=== PATIENT | female | born 1970 | race Hispanic/Latino ===

== ENCOUNTER 2017-08-30 11:03 | Day surgery (SDC) | payer MEDICAID ==
[2017-08-27 13:02] VITALS: BMI 24.1
[2017-08-30 12:04] LABS: BASO # 0.08 K/mm3 (0.0-2.0); BASO % 0.7 % (0.0-3.0); EOS # 0.4 (0.0-0.7); EOS % 3.2 % (1.5-5.0); GRAN % 46.1 % (50.0-68.0); HEMOGLOBIN 15.5 g/dL (12.0-16.0); LYMPH # 4.7 (1.2-3.4); LYMPH % 43.3 % (22.0-35.0); MEAN CELL VOLUME 94.7 fl (80.0-105.0); MEAN CORPUSCULAR HEMOGLOBIN 31.8 pg (25.0-35.0); MEAN CORPUSCULAR HGB CONC 33.6 g/dl (31.0-37.0); MEAN PLATELET VOLUME 9.4 fl (7.0-11.0); MONO # 0.7 (0.1-0.6); MONO % 6.7 % (1.0-6.0); RBC 4.87 10^6/uL (3.5-6.1); RED CELL DISTRIBUTION WIDTH 12.5 % (11.5-14.5); WHITE BLOOD COUNT 10.9 10^3/ul (4.5-11.0)
[2017-08-30 12:15] LABS: BLOOD UREA NITROGEN 15 mg/dL (7-21); CALCIUM 9.4 mg/dL (8.4-10.5); GFR AFRICAN-AMERICAN > 60; GFR NON-AFRICAN AMERICAN > 60; INR 0.96 (0.93-1.08); PARTIAL THROMBOPLASTIN TIME 29.9 Seconds (25.1-36.5)
[2017-08-30] MEDS ORDERED: Midazolam 2 MG/2 ML VIAL ONE (14:19)
[2017-08-30] MEDS ORDERED: Sodium Chloride 0.45% 1,000 ML IV SCH (15:30)
[2017-08-30] MEDS ORDERED: Oxycodone/Acetaminophen 5/325 mg Tab PO PRN (15:30)
[2017-08-30 17:18] VITALS: TEMP 97.9
--- NOTE | 2017-08-30 17:28 | RAD ---
HISTORY: rt lung bx COMPARISON: 2017. CT-guided lung biopsy performed at 15:15 FINDINGS: LUNGS: Stable large right middle lobe mass. PLEURA: No pneumothorax following a right lung /right middle lobe biopsy. CARDIOVASCULAR: Normal. OSSEOUS STRUCTURES: No significant abnormalities. VISUALIZED UPPER ABDOMEN: Normal. OTHER FINDINGS: None. IMPRESSION: No pneumothorax following right lung biopsy.
[2017-08-30] MEDS ORDERED: Oxycodone/Acetaminophen 5/325 mg Tab ONE (18:22)
--- NOTE | 2017-08-30 18:22 | CT ---
PROCEDURE: CT guided right upper lobe lung biopsy. HISTORY: 12 cm right upper lobe lung mass. Evaluate for malignancy. PHYSICIAN(S): Loy Newman MD. TECHNIQUE: The relative risks and indications of the procedure were explained to the patient and consent obtained. The patient was placed supine on the CT scanner and preliminary images through the upper lungs obtained. Conscious sedation and monitoring were provided throughout the procedure by a nurse. There is a well-circumscribed 12 cm soft tissue mass in the right upper lobe with punctate calcification. A right anterior approach was selected and the area prepped and draped in the usual sterile fashion. 1% Xylocaine was used to anesthetize the skin and soft tissues. A 17-gauge guiding needle was advanced into the 12 cm right upper lobe mass. Its position was confirmed with CT. Using coaxial technique, multiple core biopsies were obtained. The postprocedure images show no evidence of large pneumothorax or significant hemorrhage.. IMPRESSION: 1. CT-guided right upper lobe lung biopsy as described above. Specimens were sent for histology and flow cytometry.
[2017-08-30] MEDS ORDERED: Oxycodone/Acetaminophen 5/325 mg Tab PO ONE (18:24)
[2017-08-30 19:34] VITALS: RESP 18
[2017-08-30 19:36] VITALS: PULSE 72
[2017-08-30 20:03] VITALS: BP 116/68; O2SAT 94
--- NOTE | 2017-08-30 20:03 | RAD ---
EXAM: XR Chest, 1 View EXAM DATE/TIME: 08/30/2017 7:00 PM CLINICAL HISTORY: The patient age is 47 years old and is female; Condition or disease; Lung condition and disease; Other: Mass S/P rt biopsy; Additional info: S/P lung biopsy check for pneumo Facility exam id and description: Rad chest p chest portable TECHNIQUE: Frontal view of the chest. COMPARISON: DX - CHEST PORTABLE 2017-08-30 16:35 FINDINGS: Lungs: There is a large mass again visualized within the right mid and lower lung zones. The left lung is clear. Pleural space: No pleural effusions. No pneumothorax. Heart: No cardiomegaly. Mediastinum: Unremarkable. Bones/joints: Bilateral breast prostheses are visualized. Other findings: The right border is obscured. IMPRESSION: 1. There is a large mass again visualized within the right mid and lower lung zones. 2. No pneumothorax.
== END 2017-08-30 20:45 | disposition home or self-care (01) ==
LOC: SDS 11:03
PROVIDERS: ATTEND Radiology Vascular & Interventional Radiology
DX: D15.0 Benign neoplasm of thymus (principal); I10 Essential (primary) hypertension; J45.909 Unspecified asthma, uncomplicated
CPT/HCPCS: 32405; 36415; 71045; 77012; 80048; 84703; 85025; 85610; 85730; 88305; J2250; J2405; J3010; J7030

== ENCOUNTER 2017-12-02 20:36 | Inpatient (IN) | payer MEDICAID ==
[2017-12-02 20:37] VITALS: BMI 24.1
[2017-12-02] MEDS ORDERED: Albuterol-Ipratrop 3 mg / 0.5 (3 ml) UD IH STA ×2 (21:00→22:31)
--- NOTE | 2017-12-02 21:32 | ED PDOC ---
Arrival/HPI - General Chief Complaint: Chest Pain Time Seen by Provider: 12/02/17 20:45 Historian: Patient - History of Present Illness Narrative History of Present Illness (Text): 12/02/17 21:22 Monik Unger is a 47 year old female, whose past medical history includes myasthenia gravis, thymoma, who presents to the emergency department complaining worsening shortness of breath and chest pain tonight. 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 Since then had on occasion slight shortness of breath and chest pain. Patient uses nebulizer treatment at home. Patient experiences associated subjective low-grade fevers and chills. Patient denies any nausea, vomiting, diarrhea, or any other complaints at this time. Time/Duration: < month Symptom Onset: Gradual Symptom Course: Worsening Activities at Onset: Light Context: Home Past Medical History - Provider Review Nursing Documentation Reviewed: Yes - Infectious Disease Hx of Infectious Diseases: None - Tetanus Immunization Tetanus Immunization: Unknown - Cardiac Hx Cardiac Disorders: No - Pulmonary Hx Respiratory Disorders: Yes Hx Asthma: Yes Other/Comment: TUMOR REMOVED FROM CHEST AREA - Neurological Hx Neurological Disorder: No - HEENT Hx HEENT Disorder: No - Renal Hx Renal Disorder: No - Endocrine/Metabolic Hx Endocrine Disorders: No - Hematological/Oncological Hx Blood Disorders: No - Integumentary Hx Dermatological Disorder: No - Musculoskeletal/Rheumatological Hx Musculoskeletal Disorders: No - Gastrointestinal Hx Gastrointestinal Disorders: No - Genitourinary/Gynecological Hx Genitourinary Disorders: No - Psychiatric Hx Psychophysiologic Disorder: Yes Hx Anxiety: Yes Hx Depression: Yes Hx Substance Use: No - Surgical History Hx Appendectomy: Yes Hx Open Reduction Internal Fixation: Yes (L KNEE) Other/Comment: CHEST, BX LUNG - Anesthesia Hx Anesthesia: Yes Hx Anesthesia Reactions: Yes (TROUBLE WAKING) Hx Malignant Hyperthermia: No - Suicidal Assessment Feels Threatened In Home Enviroment: No Family/Social History - Physician Review Nursing Documentation Reviewed: Yes Family/Social History: No Known Family HX Smoking Status: Never Smoked Hx Alcohol Use: No Hx Substance Use: No Hx Substance Use Treatment: No Allergies/Home Meds Allergies/Adverse Reactions: Allergies cephalexin [From Keflex] Allergy (Severe, Verified 12/02/17 20:57) RASH codeine Allergy (Severe, Verified 12/02/17 20:57) RASH/SOB Iodine and Iodide Containing Produc Allergy (Severe, Verified 12/02/17 20:57) ANAPHYLAXIS latex Allergy (Severe, Verified 12/02/17 20:57) ANAPHYLAXIS peanut Allergy (Severe, Verified 12/02/17 20:57) ANAPHYLAXIS Penicillins Allergy (Severe, Verified 12/02/17 20:57) RASH/SOB shellfish derived Allergy (Verified 12/02/17 20:57) ANAPHYLAXIS Home Medications: Home Meds Medication Instructions Recorded Confirmed Albuterol 0.083% [Albuterol 0.083% 3 ml PO TID 12/02/17 12/02/17 Inhal Sanjuana (2.5 mg/3 ml) UD] Pyridostigmine [Mestinon] 60 mg PO TID 12/03/17 12/03/17 Review of Systems - Review of Systems Constitutional: Fevers, Night Sweats Eyes: absent: Vision Changes ENT: absent: Hearing Changes Respiratory: SOB Cardiovascular: Chest Pain Gastrointestinal: absent: Abdominal Pain Genitourinary Female: absent: Dysuria, Frequency Musculoskeletal: absent: Arthralgias, Back Pain Skin: absent: Rash Neurological: absent: Headache Endocrine: absent: Diaphoresis Hemo/Lymphatic: absent: Adenopathy Psychiatric: absent: Anxiety, Depression Physical Exam Vital Signs Reviewed: Yes Vital Signs Temp Pulse Resp BP Pulse Ox 12/03/17 02:48 69 18 125/88 96 12/03/17 00:15 86 20 126/71 96 12/02/17 23:35 133/98 H 12/02/17 20:49 97.8 F 82 18 139/108 H 95 Temperature: Afebrile Blood Pressure: Hypertensive Pulse: Regular Respiratory Rate: Normal Appearance: Positive for: Well-Appearing, Non-Toxic, Comfortable Pain Distress: None Mental Status: Positive for: Alert and Oriented X 3 - Systems Exam Head: Present: Atraumatic, Normocephalic Pupils: Present: PERRL Extroacular Muscles: Present: EOMI Conjunctiva: Present: Normal Mouth: Present: Moist Mucous Membranes Neck: Present: Normal Range of Motion Respiratory/Chest: Present: Rhonchi (scattered rhonchi bilaterally), Other ( midline surgical scar to chest) Cardiovascular: Present: Regular Rate and Rhythm, Normal S1, S2. No: Murmurs Abdomen: No: Tenderness, Distention, Peritoneal Signs Back: Present: Normal Inspection Upper Extremity: Present: Normal Inspection. No: Cyanosis, Edema Lower Extremity: Present: Normal Inspection. No: Edema Neurological: Present: GCS=15, CN II-XII Intact, Speech Normal Skin: Present: Warm, Dry, Normal Color. No: Rashes Psychiatric: Present: Alert, Oriented x 3, Normal Insight, Normal Concentration Medical Decision Making ED Course and Treatment: 12/02/17 21:33 Impression: 47 year old female complaining of worsening shortness of breath and chest pain with associated fevers and chills today. Plan: -- EKG -- Chest X-ray -- Labs -- Duoneb -- Reassess and disposition Progress Notes: 12/02/17 22:36 EKG: Ordered, reviewed, and independently interpreted the EKG. Rate : 83 BPM Rhythm : NSR Interpretation : Septal infarct, no acute changes 12/03/17 03:45 Case discussed with medical support specialist and with Dr. Reyes, who agree for patient to be accepted to hospitalist service. - Lab Interpretations Lab Results: 12/02/17 21:20 12/02/17 21:20 Lab Results 12/02/17 21:20: PT 12.3, INR 1.06, APTT 30.0, D-Dimer, Quantitative 753 H 12/02/17 21:20: WBC 7.9 D, RBC 4.28, Hgb 12.8 D, Hct 38.2, MCV 89.3 D, MCH 29.9, MCHC 33.5, RDW 12.4, Plt Count 502 H, MPV 8.4 12/02/17 21:20: Sodium 143, Potassium 4.0, Chloride 107, Carbon Dioxide 23, Anion Gap 17, BUN 18, Creatinine 0.7, Est GFR ( Amer) > 60, Est GFR (Non- Af Amer) > 60, Random Glucose 102, Calcium 9.3, Total Bilirubin 0.7, AST 20, ALT 16, Alkaline Phosphatase 62, Lactate Dehydrogenase 523, Total Creatine Kinase 87, Troponin I < 0.01, NT-Pro-B Natriuret Pep 31.0, Total Protein 7.8, Albumin 4.3, Globulin 3.5, Albumin/Globulin Ratio 1.2 I have reviewed the lab results: Yes - RAD Interpretation Radiology Orders: 12/02/17 21:00 CHEST PORTABLE [RAD] Stat 12/02/17 23:57 LUNG PERF & VENT SCAN [NM] Stat - Medication Orders Current Medication Orders: Eye Irrigation Solution (Eye Wash) 0 ml OU BID [facility] Last Admin: 12/03/17 19:43 Dose: Not Given Non-Admin Reason: Patient Refused Ketorolac Tromethamine (Toradol) 30 mg IVP Q6H PRN PRN Reason: Pain, severe (8-10) Last Admin: 12/03/17 06:01 Dose: 30 mg MAR Pain Assessment Document 12/03/17 06:01 [facility] (Rec: 12/03/17 06:02 [id number] Pain Reassessment Is this a pain reassessment? No Presence of Pain Presence of Pain Yes Location Pain Location Body Site Chest IVP Administration Document 12/03/17 06:01 [facility] (Rec: 12/03/17 06:02 [id number]) Charges for Administration # of IVP Administrations 1 Pyridostigmine [place] (Mestinon Tab) 60 mg PO TID [facility] Last Admin: 12/03/17 19:43 Dose: Not Given Non-Admin Reason: NPO Discontinued Medications Albuterol/Ipratropium (Duoneb 3 Mg/0.5 Mg (3 Ml) Ud) 3 ml IH ONCE STA Stop: 12/02/17 21:01 Last Admin: 12/02/17 21:54 Dose: 3 ml Albuterol/Ipratropium (Duoneb 3 Mg/0.5 Mg (3 Ml) Ud) 3 ml IH ONCE STA Stop: 12/02/17 22:32 Last Admin: 12/02/17 23:00 Dose: 3 ml Benzonatate (Tessalon Perles) 200 mg PO Q8H [facility] Stop: 12/03/17 22:01 Last Admin: 12/03/17 21:17 Dose: Not Given Non-Admin Reason: Patient Refused Furosemide (Lasix) 40 mg IVP ONCE ONE Stop: 12/02/17 23:17 Last Admin: 12/02/17 23:35 Dose: 40 mg MAR Blood Pressure Document 12/02/17 23:35 SS (Rec: 12/02/17 23:39 SS [id number]) Blood Pressure Blood Pressure (100/60-150/90) 133/98 IVP Administration Document 12/02/17 23:35 SS (Rec: 12/02/17 23:39 [id number] Charges for Administration # of IVP Administrations 1 Ketorolac Tromethamine (Toradol) 30 mg IVP ONCE ONE Stop: 12/02/17 23:13 Last Admin: 12/02/17 23:31 Dose: 30 mg MAR Pain Assessment Document 12/02/17 23:31 SS (Rec: 12/02/17 23:34 [id number] Pain Reassessment Is this a pain reassessment? No Sleep Is patient sleeping during reassessment? No Presence of Pain Presence of Pain Yes Pain Scale Used Pain Scale Used Numeric IVP Administration Document 12/02/17 23:31 SS (Rec: 12/02/17 23:34 [id number] Charges for Administration # of IVP Administrations 1 - Scribe Statement The provider has reviewed the documentation as recorded by the Scribe Shasha Poon Provider Scribe Attestation: All medical record entries made by the Scribe were at my direction and personally dictated by me. I have reviewed the chart and agree that the record accurately reflects my personal performance of the history, physical exam, medical decision making, and the department course for this patient. I have also personally directed, reviewed, and agree with the discharge instructions and disposition. Disposition/Present on Arrival - Present on Arrival Any Indicators Present on Arrival: No History of DVT/PE: No History of Uncontrolled Diabetes: No Urinary Catheter: No History of Decub. Ulcer: No History Surgical Site Infection Following: None - Disposition Have Diagnosis and Disposition been Completed?: Yes Diagnosis: Chest pain, Pleural effusion Disposition: HOSPITALIZED Disposition Time: 03:40 Condition: STABLE
[2017-12-02 21:34] LABS: HEMOGLOBIN 12.8 g/dL (12.0-16.0); MEAN CELL VOLUME 89.3 fl (80.0-105.0); MEAN CORPUSCULAR HEMOGLOBIN 29.9 pg (25.0-35.0); MEAN CORPUSCULAR HGB CONC 33.5 g/dl (31.0-37.0); MEAN PLATELET VOLUME 8.4 fl (7.0-11.0); RBC 4.28 10^6/uL (3.5-6.1); RED CELL DISTRIBUTION WIDTH 12.4 % (11.5-14.5); WHITE BLOOD COUNT 7.9 10^3/ul (4.5-11.0)
[2017-12-02 21:40] LABS: INR 1.06 (0.93-1.08); PROTHROMBIN TIME 12.3 SECONDS (9.4-12.5)
[2017-12-02 21:44] LABS: ALB/GLOB RATIO 1.2 (1.1-1.8); ALBUMIN 4.3 g/dL (3.0-4.8); ALT/SGPT 16 U/L (7-56); AST/SGOT 20 U/L (14-36); BLOOD UREA NITROGEN 18 mg/dL (7-21); CALCIUM 9.3 mg/dL (8.4-10.5); GFR AFRICAN-AMERICAN > 60; GFR NON-AFRICAN AMERICAN > 60
[2017-12-02 21:55] LABS: TROPONIN I < 0.01 ng/mL
--- NOTE | 2017-12-03 03:57 | CP.PCM.HP ---
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 Patient had thymectomy 5 weeks ago at [facility] ([place]) by Dr. Philipp Segal. Since then, the patient has been experiencing shooting chest pain that radiates to her back. She rates the pain a 9/10 at it's worse and a 7/10 at it's best. Pain is relived but sitting up still. The pain is exacerbated by laughing, coughing, or sneezing. Since the surgery patient has had 2 thoracentesis. Her last thoracentesis was 2 weeks ago in which they drained 450cc of cranberry colored fluid. ROS POSITIVES: SOB, Fever/Chills, Cough, Palpitations, Generalized weakness, upper ext. motor weakness (chronic), and Insomnia NEGATIVES: Headache, Dizziness, abdominal pain, nausea, vomiting, changes in bowel habits, urinary symptoms, double vision PMHx: Myasthenis Gravis, Thymoma PSHx: Thymectomy Allergies: Cephalexin, Codeine, Iodine, Iodide containing products, latex, peanuts, penicillins, shellfish Social Hx: Denies tobacco, alcohol, and illicit drug use Hos: 2 weeks ago at [facility] for thoracentesis FamHx: Reviewed. Patient is supposed to receive 1st dose of IgG next week. PMD: Dr. Gonzalez Present on Admission - Present on Admission Any Indicators Present on Admission: No Review of Systems - Review of Systems All systems: reviewed and no additional remarkable complaints except (As per HPI ) Review of Systems: As per HPI Past Patient History - Infectious Disease Hx of Infectious Diseases: None - Tetanus Immunizations Tetanus Immunization: Unknown - Past Social History Smoking Status: Never Smoked - CARDIAC Hx Cardiac Disorders: No - PULMONARY Hx Respiratory Disorders: Yes Hx Asthma: Yes Other/Comment: TUMOR REMOVED FROM CHEST AREA - NEUROLOGICAL Hx Neurological Disorder: No - HEENT Hx HEENT Problems: No - RENAL Hx Chronic Kidney Disease: No - ENDOCRINE/METABOLIC Hx Endocrine Disorders: No - HEMATOLOGICAL/ONCOLOGICAL Hx Blood Disorders: No - INTEGUMENTARY Hx Dermatological Problems: No - MUSCULOSKELETAL/RHEUMATOLOGICAL Hx Musculoskeletal Disorders: No - GASTROINTESTINAL Hx Gastrointestinal Disorders: No - GENITOURINARY/GYNECOLOGICAL Hx Genitourinary Disorders: No - PSYCHIATRIC Hx Psychophysiologic Disorder: Yes Hx Anxiety: Yes Hx Depression: Yes Hx Substance Use: No - SURGICAL HISTORY Hx Appendectomy: Yes Hx Open Reduction Internal Fixation: Yes (L KNEE) Other/Comment: CHEST, BX LUNG - ANESTHESIA Hx Anesthesia: Yes Hx Anesthesia Reactions: Yes (TROUBLE WAKING) Hx Malignant Hyperthermia: No Meds Allergies/Adverse Reactions: Allergies Allergy/AdvReac Type Severity Reaction Status Date / Time cephalexin [From Keflex] Allergy Severe RASH Verified 12/02/17 20:57 codeine Allergy Severe RASH/SOB Verified 12/02/17 20:57 Iodine and Iodide Containing Allergy Severe ANAPHYLAXIS Verified 12/02/17 20:57 Produc latex Allergy Severe ANAPHYLAXIS Verified 12/02/17 20:57 peanut Allergy Severe ANAPHYLAXIS Verified 12/02/17 20:57 Penicillins Allergy Severe RASH/SOB Verified 12/02/17 20:57 shellfish derived Allergy ANAPHYLAXIS Verified 12/02/17 20:57 Physical Exam - Constitutional Appears: Non-toxic - Head Exam Head Exam: ATRAUMATIC, NORMAL INSPECTION, NORMOCEPHALIC - Eye Exam Eye Exam: EOMI, Normal appearance Additional comments: No Ptosis - ENT Exam ENT Exam: Mucous Membranes Moist - Neck Exam Neck exam: Negative for: Lymphadenopathy - Respiratory Exam Respiratory Exam: Decreased Breath Sounds (Right Lower lung base), Clear to Auscultation Bilateral, NORMAL BREATHING PATTERN. absent: Rales, Rhonchi, Wheezes - Cardiovascular Exam Cardiovascular Exam: RRR, +S1, +S2. absent: JVD - GI/Abdominal Exam GI & Abdominal Exam: Normal Bowel Sounds, Soft. absent: Tenderness - Extremities Exam Extremities exam: Positive for: normal capillary refill, normal inspection - Neurological Exam Neurological exam: Alert, CN II-XII Intact, Oriented x3 Additional comments: 4/5 Muscle strength in Upper Extremities 5/5 Muscle Strength in Lower Extremities. - Skin Additional comments: Midline chest scare w/ mild erythema and calor Results - Vital Signs Recent Vital Signs: Last Vital Signs Temp 97.8 F 12/02/17 20:49 Pulse 69 12/03/17 02:48 Resp 18 12/03/17 02:48 BP 125/88 12/03/17 02:48 Pulse Ox 96 12/03/17 02:48 - Labs Result Diagrams: 12/02/17 21:20 12/02/17 21:20 Labs: Laboratory Results - last 24 hr 12/02/17 12/02/17 12/02/17 21:20 21:20 21:20 WBC 7.9 D RBC 4.28 Hgb 12.8 D Hct 38.2 MCV 89.3 D MCH 29.9 MCHC 33.5 RDW 12.4 Plt Count 502 H MPV 8.4 PT 12.3 INR 1.06 APTT 30.0 D-Dimer, Quantitative 753 H Sodium 143 Potassium 4.0 Chloride 107 Carbon Dioxide 23 Anion Gap 17 BUN 18 Creatinine 0.7 Est GFR ( Amer) > 60 Est GFR (Non-Af Amer) > 60 Random Glucose 102 Calcium 9.3 Total Bilirubin 0.7 AST 20 ALT 16 Alkaline Phosphatase 62 Lactate Dehydrogenase 523 Total Creatine Kinase 87 Troponin I < 0.01 NT-Pro-B Natriuret Pep 31.0 Total Protein 7.8 Albumin 4.3 Globulin 3.5 Albumin/Globulin Ratio 1.2 Assessment & Plan - Assessment and Plan (Free Text) Assessment: This Patient is a 47 year old female with PMHx of Myasthenis Gravis s/p thymectomy admitted for evaluation and treatment of chest pain and SOB. Plan: Chest Pain/SOB likely 2/2 to surgery and increased cardiac demand due to pleural effusion ED: Duonebs x 2, Lasix 40 IVP, Toradol Elevated D-Dimer CXR(Adm): Right sided pleural effusion. V/Q Scan(Adm): Negative CTA(Adm): Negative for PE Trop #1 - NEGATIVE Troponin #2 Toradol PRN Chest Ultrasound Pulm Consult (Dr. Walker) for Thoracentesis Tessalon Perles Q8H for Cough. Likely will not need it after thoracentesis Myasthenis Gravis Pyridostigimine 60mg PO TID Proph SCD's Patient discussed with Attending (Dr. Reyes) Erin Roblero, PGY-1 <Douglas Reyes Q - Last Filed: 12/03/17 19:26> Results - Vital Signs Recent Vital Signs: Last Vital Signs Temp 98.3 F 12/03/17 18:00 Pulse 81 12/03/17 18:00 Resp 16 04/24/18 18:00 BP 125/84 12/03/17 18:00 Pulse Ox 96 12/03/17 02:48 - Labs Result Diagrams: 12/03/17 07:45 12/03/17 07:45 Labs: Laboratory Results - last 24 hr 12/03/17 12/03/17 12/03/17 07:45 07:45 07:45 WBC 6.7 RBC 4.21 Hgb 12.2 Hct 37.7 MCV 89.5 MCH 29.0 MCHC 32.4 RDW 12.5 Plt Count 498 H MPV 8.5 Gran % 54.7 Lymph % (Auto) 30.0 [place] % (Auto) 9.1 H Eos % (Auto) 5.8 H Baso % (Auto) 0.4 Gran # 3.69 Lymph # (Auto) 2.0 [place] # (Auto) 0.6 Eos # (Auto) 0.4 Baso # (Auto) 0.03 Sodium 140 Potassium 4.0 Chloride 106 Carbon Dioxide 24 Anion Gap 14 BUN 18 Creatinine 0.8 Est GFR ( Amer) > 60 Est GFR (Non-Af Amer) > 60 Random Glucose 105 Calcium 9.7 Phosphorus 5.4 H Magnesium 2.1 Total Bilirubin 1.0 AST 27 ALT 22 Alkaline Phosphatase 64 Troponin I 0.01 Total Protein 8.0 Albumin 4.3 Globulin 3.7 Albumin/Globulin Ratio 1.2 Attending/Attestation - Attestation I have personally seen and examined this patient.: Yes I have fully participated in the care of the patient.: Yes I have reviewed all pertinent clinical information: Yes
--- NOTE | 2017-12-03 07:47 | RAD ---
HISTORY: sob COMPARISON: CT 08/14/2017 FINDINGS: LUNGS: The mass seen on the previous study is no longer visible. There is a moderate size right pleural effusion PLEURA: Right-sided effusion CARDIOVASCULAR: Normal. OSSEOUS STRUCTURES: Sternal wires VISUALIZED UPPER ABDOMEN: Normal. OTHER FINDINGS: None. IMPRESSION: Moderate size right pleural effusion
--- NOTE | 2017-12-03 08:53 | NM ---
COMPARISON: Not available TECHNIQUE: 30.2 mCi technetium 99-m DTPA aerosol. 3.4 mCI technetium 99-m MAA administered intravenously. FINDINGS: VENTILATION COMPONENT: Defect at right base consistent with moderate pleural effusion on chest radiograph of the prior day. PERFUSION COMPONENT: Defect at right base matching the ventilatory defect noted above. No other perfusion defect identified. IMPRESSION: Low probability for pulmonary embolism. Preliminary interpretation of this examination was reported by [facility] at 2:47 a.m. on 12/03/2017. There is concurrence of this report with the preliminary interpretation.
[2017-12-03 09:21] LABS: BASO # 0.03 K/mm3 (0.0-2.0); BASO % 0.4 % (0.0-3.0); EOS # 0.4 (0.0-0.7); EOS % 5.8 % (1.5-5.0); GRAN # 3.69 (1.4-6.5); GRAN % 54.7 % (50.0-68.0); HEMOGLOBIN 12.2 g/dL (12.0-16.0); MEAN CELL VOLUME 89.5 fl (80.0-105.0); MEAN CORPUSCULAR HGB CONC 32.4 g/dl (31.0-37.0); MEAN PLATELET VOLUME 8.5 fl (7.0-11.0); MONO # 0.6 (0.1-0.6); MONO % 9.1 % (1.0-6.0); RBC 4.21 10^6/uL (3.5-6.1); RED CELL DISTRIBUTION WIDTH 12.5 % (11.5-14.5); WHITE BLOOD COUNT 6.7 10^3/ul (4.5-11.0)
[2017-12-03 09:39] LABS: ALB/GLOB RATIO 1.2 (1.1-1.8); ALBUMIN 4.3 g/dL (3.0-4.8); ALT/SGPT 22 U/L (7-56); AST/SGOT 27 U/L (14-36); BLOOD UREA NITROGEN 18 mg/dL (7-21); CALCIUM 9.7 mg/dL (8.4-10.5); GFR AFRICAN-AMERICAN > 60; GFR NON-AFRICAN AMERICAN > 60
[2017-12-03] MEDS ORDERED: Ophthalmic Irrigation, Soln OU SCH (10:00)
[2017-12-03] MEDS: Ophthalmic Irrigation, Soln OU SCH ×2 (10:43→19:43)
--- NOTE | 2017-12-03 11:18 | CARD ---
APPROVED REPORT EKG Measurement Heart [id number] WI [id number] <Conclusion> Normal sinus rhythm Low voltage QRS Poor RR progression, Possible lead placement.
[2017-12-04 06:38] VITALS: O2SAT 98
[2017-12-04 07:38] LABS: BASO # 0.03 K/mm3 (0.0-2.0); BASO % 0.3 % (0.0-3.0); EOS # 0.5 (0.0-0.7); EOS % 4.5 % (1.5-5.0); GRAN # 6.66 (1.4-6.5); HEMOGLOBIN 12.4 g/dL (12.0-16.0); LYMPH # 1.8 (1.2-3.4); LYMPH % 17.7 % (22.0-35.0); MEAN CELL VOLUME 89.2 fl (80.0-105.0); MEAN CORPUSCULAR HGB CONC 32.5 g/dl (31.0-37.0); MEAN PLATELET VOLUME 8.6 fl (7.0-11.0); MONO % 10.5 % (1.0-6.0); RBC 4.27 10^6/uL (3.5-6.1); RED CELL DISTRIBUTION WIDTH 12.5 % (11.5-14.5); WHITE BLOOD COUNT 9.9 10^3/ul (4.5-11.0)
[2017-12-04 08:02] LABS: ALB/GLOB RATIO 1.1 (1.1-1.8); ALBUMIN 4.1 g/dL (3.0-4.8); ALT/SGPT 22 U/L (7-56); AST/SGOT 26 U/L (14-36); BLOOD UREA NITROGEN 26 mg/dL (7-21); CALCIUM 9.3 mg/dL (8.4-10.5); GFR AFRICAN-AMERICAN > 60; GFR NON-AFRICAN AMERICAN > 60
--- NOTE | 2017-12-04 10:15 | US ---
PROCEDURE: Ultrasound guided right thoracentesis. CLINICAL HISTORY: Recent malignant thymoma removal. Recurrent right pleural effusion. Shortness of breath. Needs thoracentesis PHYSICIAN(S): Loy Newman MD. TECHNIQUE: The relative risks and indications of the procedure were explained to the patient and consent obtained. The patient was placed in a sitting position on the stretcher and sonography of the right chest performed. This revealed a small rightpleural effusion. A right posterolateral intercostal approach was selected and the area prepped and draped usual sterile fashion. 1% Xylocaine was used to anesthetize the skin and soft tissues. A 7 Setswana thoracentesis catheter was trocared into the right pleural cavity and 350of sally fluid aspirated. A cytology specimen was sent IMPRESSION: 1. Ultrasound guided right thoracentesis. 350 cc of amberfluid were aspirated.
--- NOTE | 2017-12-04 11:03 | RAD ---
HISTORY: rt thora COMPARISON: 12/02/2017 TECHNIQUE: Chest PA and lateral FINDINGS: LUNGS: No active pulmonary disease. PLEURA: There is a moderate size right pleural effusion. There is no evidence of pneumothorax CARDIOVASCULAR: Normal. OSSEOUS STRUCTURES: No significant abnormalities. VISUALIZED UPPER ABDOMEN: Normal. OTHER FINDINGS: None. IMPRESSION: Moderate size right pleural effusion. No evidence of pneumothorax
[2017-12-04] MEDS: Ophthalmic Irrigation, Soln OU SCH ×2 (11:31→18:04)
[2017-12-04 12:37] VITALS: RESP 20
--- NOTE | 2017-12-04 13:12 | CP.PCM.DIS ---
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 S /p (now) 3 thoracenteses Hospital Course - Lab Results Lab Results: Most Recent Lab Values WBC 9.9 10^3/ul (4.5-11.0) D 12/04/17 07:00 RBC 4.27 10^6/uL (3.5-6.1) 12/04/17 07:00 Hgb 12.4 g/dL (12.0-16.0) 12/04/17 07:00 Hct 38.1 % (36.0-48.0) 12/04/17 07:00 MCV 89.2 fl (80.0-105.0) 12/04/17 07:00 MCH 29.0 pg (25.0-35.0) 12/04/17 07:00 MCHC 32.5 g/dl (31.0-37.0) 12/04/17 07:00 RDW 12.5 % (11.5-14.5) 12/04/17 07:00 Plt Count 478 10^3/uL (120.0-450.0) H 12/04/17 07:00 MPV 8.6 fl (7.0-11.0) 12/04/17 07:00 Gran % 67.0 % (50.0-68.0) 12/04/17 07:00 Lymph % (Auto) 17.7 % (22.0-35.0) L 12/04/17 07:00 [place] % (Auto) 10.5 % (1.0-6.0) H 12/04/17 07:00 Eos % (Auto) 4.5 % (1.5-5.0) 12/04/17 07:00 Baso % (Auto) 0.3 % (0.0-3.0) 12/04/17 07:00 Gran # 6.66 (1.4-6.5) H 12/04/17 07:00 Lymph # (Auto) 1.8 (1.2-3.4) 12/04/17 07:00 [place] # (Auto) 1.0 (0.1-0.6) H 12/04/17 07:00 Eos # (Auto) 0.5 (0.0-0.7) 12/04/17 07:00 Baso # (Auto) 0.03 K/mm3 (0.0-2.0) 12/04/17 07:00 PT 12.3 SECONDS (9.4-12.5) 12/02/17 21:20 INR 1.06 (0.93-1.08) 12/02/17 21:20 APTT 30.0 Seconds (25.1-36.5) 12/02/17 21:20 D-Dimer, Quantitative 753 ng/mL (0-243) H 12/02/17 21:20 Sodium 142 mmol/L (132-148) 12/04/17 07:00 Potassium 4.0 mmol/L (3.6-5.0) 12/04/17 07:00 Chloride 107 mmol/L (98-107) 12/04/17 07:00 Carbon Dioxide 23 mmol/L (21-33) 12/04/17 07:00 Anion Gap 17 (10-20) 12/04/17 07:00 BUN 26 mg/dL (7-21) H 12/04/17 07:00 Creatinine 0.7 mg/dl (0.7-1.2) 12/04/17 07:00 Est GFR ( Amer) > 60 12/04/17 07:00 Est GFR (Non-Af Amer) > 60 12/04/17 07:00 Random Glucose 120 mg/dL (70-110) H 12/04/17 07:00 Calcium 9.3 mg/dL (8.4-10.5) 12/04/17 07:00 Phosphorus 5.4 mg/dL (2.5-4.5) H 12/03/17 07:45 Magnesium 2.1 mg/dL (1.7-2.2) 12/03/17 07:45 Total Bilirubin 0.8 mg/dL (0.2-1.3) 12/04/17 07:00 AST 26 U/L (14-36) 12/04/17 07:00 ALT 22 U/L (7-56) 12/04/17 07:00 Alkaline Phosphatase 58 U/L (38-126) 12/04/17 07:00 Lactate Dehydrogenase 523 U/L (333-699) 12/02/17 21:20 Total Creatine Kinase 87 U/L (35-230) 12/02/17 21:20 Troponin I 0.01 ng/mL 12/03/17 07:45 NT-Pro-B Natriuret Pep 31.0 pg/mL (0-450) 12/02/17 21:20 Total Protein 7.7 g/dL (5.8-8.3) 12/04/17 07:00 Albumin 4.1 g/dL (3.0-4.8) 12/04/17 07:00 Globulin 3.6 gm/dL 12/04/17 07:00 Albumin/Globulin Ratio 1.1 (1.1-1.8) 12/04/17 07:00 - Hospital Course Hospital Course: This is a 47 year old female with 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 Of note, since the thymectomy, patient had undergone 2 thoracenteses for build-up of pleural effusions causing chest pain and shortness of breath, both times improving her symptoms, the last 2 weeks prior. Pt reports the last thoracentesis removed 450cc of cranberry-colored fluid. Prior to admission, she called her CT surgeon 's office (Dr. Hunt, [facility]), and was instructed to present to the nearest hospital, which was [facility]. While here, she was seen by Pulm and IR. Underwent a thoracentesis by IR yesterday, and was notable for removal of 350cc of straw-colored fluid. Today, pt reports improvement of symptoms. Still has some residual chest discomfort, but no longer experiences shooting pain from mid-chest to back, and no longer has worsening chest pain with deep breaths. She has no other acute complaints reported, and reports ready to be discharged. CT Surgeon's office was called and notified of patient's discharge and thoracentesis results, they reported that they will contact the patient to arrange follow up (pt notified and aware of this). She was instructed to resume all home medications, to follow up with her PMD (Dr. Gonzalez) within 1 week of discharge, and to follow up with her CT Surgeon whenever they schedule her. She expressed understanding and agreement with these instructions, and was then discharged. Patient seen, reviewed, and discussed with attending, Dr. Freeman. Discharge Exam - Head Exam Head Exam: ATRAUMATIC, NORMAL INSPECTION, NORMOCEPHALIC - Eye Exam Eye Exam: EOMI, Normal appearance. absent: Conjunctival injection, Scleral icterus Pupil Exam: absent: Irregular, Unequal - ENT Exam ENT Exam: Mucous Membranes Moist - Neck Exam Neck exam: Full Rom, Normal Inspection - Respiratory Exam Respiratory Exam: Chest Wall Tenderness (at site of chest wall incision (along midline)), Decreased Breath Sounds (absent sounds at R lung base (s/p right lower lobe resection)), Rales (faint rales at Right base, above area of absent sound), NORMAL BREATHING PATTERN. absent: Accessory Muscle Use, Prolonged Expiratory Phase, Wheezes, Respiratory Distress, Stridor - Cardiovascular Exam Cardiovascular Exam: REGULAR RHYTHM, RRR, +S1, +S2. absent: Bradycardia, Tachycardia, Irregular Rhythm, JVD, +S4 - GI/Abdominal Exam GI & Abdominal Exam: Normal Bowel Sounds, Soft, Unremarkable. absent: Diminished Bowel Sounds, Distended, Firm, Guarding, Hyperactive Bowel Sounds, Hypoactive Bowel Sounds, Rigid, Tenderness - Extremities Exam Extremities exam: normal capillary refill, normal inspection, pedal pulses present - Neurological Exam Additional comments: awake and alert, following all commands appropriately, sitting in bed without any difficulty maintaining position, moving all extremities spontaneously - Psychiatric Exam Psychiatric exam: Normal Affect, Normal Mood - Skin Skin Exam: Dry, Intact (except for mid-line vertical chest surgical scar), Normal Color, Warm Discharge Plan - Follow Up Plan Condition: STABLE Disposition: HOME/ ROUTINE Instructions: Chest Pain, Pleural Effusion (DC), Myasthenia Gravis (DC), Thoracentesis (DC) Additional Instructions: Please resume all home medications as prescribed. Please follow up with your PMD (Dr. Gonzalez) within 1 week of discharge and with your Cardiothoracic surgeon as directed. Please report to a hospital if you experience worsening or new concerning symptoms. You underwent a thoracentesis on 12/03/17, at which time 350cc of straw-colored fluid was drained. The follow up X-ray still shows some effusion on the right, but no signs of pneumothorax. No overt signs of infection were present, and you have not displayed any systemic signs of infection, so you have been medically cleared for discharge. We have notified your Cardiothoracic surgeon ( Dr. Hunt) of this admission and of the procedure and results. They will call you to schedule outpatient followup. Referrals: Flora Hunt MD [Other] Betty Mathew MD [Primary Care Provider] - <Stan Freeman - Last Filed: 12/05/17 14:23> Provider - Provider Date of Admission: 12/03/17 03:40 Attending physician: Stan Freeman MD Primary care physician: Betty Gonzalez MD Hospital Course - Lab Results Lab Results: Most Recent Lab Values WBC 9.9 10^3/ul (4.5-11.0) D 12/04/17 07:00 RBC 4.27 10^6/uL (3.5-6.1) 12/04/17 07:00 Hgb 12.4 g/dL (12.0-16.0) 12/04/17 07:00 Hct 38.1 % (36.0-48.0) 12/04/17 07:00 MCV 89.2 fl (80.0-105.0) 12/04/17 07:00 MCH 29.0 pg (25.0-35.0) 12/04/17 07:00 MCHC 32.5 g/dl (31.0-37.0) 12/04/17 07:00 RDW 12.5 % (11.5-14.5) 12/04/17 07:00 Plt Count 478 10^3/uL (120.0-450.0) H 12/04/17 07:00 MPV 8.6 fl (7.0-11.0) 12/04/17 07:00 Gran % 67.0 % (50.0-68.0) 12/04/17 07:00 Lymph % (Auto) 17.7 % (22.0-35.0) L 12/04/17 07:00 [place] % (Auto) 10.5 % (1.0-6.0) H 12/04/17 07:00 Eos % (Auto) 4.5 % (1.5-5.0) 12/04/17 07:00 Baso % (Auto) 0.3 % (0.0-3.0) 12/04/17 07:00 Gran # 6.66 (1.4-6.5) H 12/04/17 07:00 Lymph # (Auto) 1.8 (1.2-3.4) 12/04/17 07:00 [place] # (Auto) 1.0 (0.1-0.6) H 12/04/17 07:00 Eos # (Auto) 0.5 (0.0-0.7) 12/04/17 07:00 Baso # (Auto) 0.03 K/mm3 (0.0-2.0) 12/04/17 07:00 PT 12.3 SECONDS (9.4-12.5) 12/02/17 21:20 INR 1.06 (0.93-1.08) 12/02/17 21:20 APTT 30.0 Seconds (25.1-36.5) 12/02/17 21:20 D-Dimer, Quantitative 753 ng/mL (0-243) H 12/02/17 21:20 Sodium 142 mmol/L (132-148) 12/04/17 07:00 Potassium 4.0 mmol/L (3.6-5.0) 12/04/17 07:00 Chloride 107 mmol/L (98-107) 12/04/17 07:00 Carbon Dioxide 23 mmol/L (21-33) 12/04/17 07:00 Anion Gap 17 (10-20) 12/04/17 07:00 BUN 26 mg/dL (7-21) H 12/04/17 07:00 Creatinine 0.7 mg/dl (0.7-1.2) 12/04/17 07:00 Est GFR ( Amer) > 60 12/04/17 07:00 Est GFR (Non-Af Amer) > 60 12/04/17 07:00 Random Glucose 120 mg/dL (70-110) H 12/04/17 07:00 Calcium 9.3 mg/dL (8.4-10.5) 12/04/17 07:00 Phosphorus 5.4 mg/dL (2.5-4.5) H 12/03/17 07:45 Magnesium 2.1 mg/dL (1.7-2.2) 12/03/17 07:45 Total Bilirubin 0.8 mg/dL (0.2-1.3) 12/04/17 07:00 AST 26 U/L (14-36) 12/04/17 07:00 ALT 22 U/L (7-56) 12/04/17 07:00 Alkaline Phosphatase 58 U/L (38-126) 12/04/17 07:00 Lactate Dehydrogenase 523 U/L (333-699) 12/02/17 21:20 Total Creatine Kinase 87 U/L (35-230) 12/02/17 21:20 Troponin I 0.01 ng/mL 12/03/17 07:45 NT-Pro-B Natriuret Pep 31.0 pg/mL (0-450) 12/02/17 21:20 Total Protein 7.7 g/dL (5.8-8.3) 12/04/17 07:00 Albumin 4.1 g/dL (3.0-4.8) 12/04/17 07:00 Globulin 3.6 gm/dL 12/04/17 07:00 Albumin/Globulin Ratio 1.1 (1.1-1.8) 12/04/17 07:00 Attending/Attestation - Attestation I have personally seen and examined this patient.: Yes I have fully participated in the care of the patient.: Yes I have reviewed all pertinent clinical information, including history, physical exam and plan: Yes Notes (Text): I have seen and examined the patient at bedside. Agree with the above note outlined by the resident. Discussed with the pateint in detail. CT surgeon Dr Tabor was also notified that patient is being discharged. Patient denies any complaints. Upon discharge patient will follow up with Dr Shah.
[2017-12-04 17:48] VITALS: BP 124/71; TEMP 97.8
[2017-12-04 19:54] VITALS: PULSE 85
== END 2017-12-04 21:00 | disposition home or self-care (01) | DRG 541 ==
LOC: ED 20:36 → ERH 12-03 03:40 → 2RSO 12-03 06:06
PROVIDERS: ADMIT Internal Medicine; ATTEND Hospitalist
PROC: BB4BZZZ Ultrasonography of Pleura (ICD-10-PCS; 2017-12-03)
PROC: 0W993ZX Drainage of Right Pleural Cavity, Percutaneous Approach, Diagnostic (ICD-10-PCS; principal; 2017-12-03 17:30)
DX: J90 Pleural effusion, not elsewhere classified (principal); G70.00 Myasthenia gravis without (acute) exacerbation; R07.89 Other chest pain; J45.909 Unspecified asthma, uncomplicated; D15.0 Benign neoplasm of thymus; Z91.040 Latex allergy status; Z88.0 Allergy status to penicillin; Z88.5 Allergy status to narcotic agent

== ENCOUNTER 2018-01-10 07:44 | Inpatient (IN) | payer MEDICAID ==
[2018-01-10 07:51] VITALS: BMI 23.6
[2018-01-10] MEDS ORDERED: Sodium Chloride 0.9% 1,000 ML IV ONE (08:02)
--- NOTE | 2018-01-10 08:09 | ED PDOC ---
Arrival/HPI - General Chief Complaint: Shortness Of Breath Time Seen by Provider: 01/10/18 08:02 Historian: Patient, EMS - History of Present Illness Narrative History of Present Illness (Text): 01/10/18 08:07 pt p/w + sudden onset of extreme SOB, since awaking this morning; pt was having a hard time walking her dogs this morning and her breathing was extremely labored; pt also felt severe chest tightness/pain; pt states similar symptoms had occurred in the past, pt was just recently admitted to [facility] ICU and was intubated at that time as well as had thoracentesis to drain fluid from her left lung; pt states she was just discharged from the hospital 3 weeks ago; pt has been at home taking every other day prednisone 60mg and was receiving at home IVIG infusion every 1-[address] Garibay; pt states + felt dizzy/ lightheadedness, + extremely fatigued/weak currently; pt denied fever/chills/ sweats, no abd pain, no n/v, no numbness/tingling, no urinary/bowel changes, no incontinence, no fall/trauma/sick contact, no travel; no LOC pt is here for further eval. pt's without other complaints. PCP: Dr Santos ([facility] Neurology: Dr Garibay ([facility]) Time/Duration: Prior to Arrival Symptom Onset: Sudden Symptom Course: Worsening Quality: Tightness Severity Level: Severe Activities at Onset: Rest Context: Home Past Medical History - Provider Review Nursing Documentation Reviewed: Yes - Travel History Have you recently traveled outside [place] w/in the past 3 mons?: No - Past History Past History: No Previous - Infectious Disease Hx of Infectious Diseases: None - Tetanus Immunization Tetanus Immunization: Unknown - Reproductive Menopause: No Currently : Unknown - Cardiac Hx Pacemaker: No - Pulmonary Hx Asthma: Yes - Neurological Hx Neurological Disorder: No - HEENT Hx HEENT Disorder: No - Renal Hx Renal Disorder: No - Endocrine/Metabolic Hx Endocrine Disorders: No - Hematological/Oncological Hx Blood Disorders: No - Integumentary Hx Dermatological Disorder: No - Musculoskeletal/Rheumatological Hx Musculoskeletal Disorders: No Hx Myasthenia Gravis: Yes - Gastrointestinal Hx Gastrointestinal Disorders: No - Genitourinary/Gynecological Hx Genitourinary Disorders: No - Psychiatric Hx Anxiety: Yes Hx Depression: Yes Hx Substance Use: No - Surgical History Hx Appendectomy: Yes - Anesthesia Hx Anesthesia: Yes Hx Anesthesia Reactions: Yes (TROUBLE WAKING) Hx Malignant Hyperthermia: No - Suicidal Assessment Feels Threatened In Home Enviroment: No Family/Social History - Physician Review Nursing Documentation Reviewed: Yes Family/Social History: No Known Family HX Smoking Status: Never Smoked Hx Alcohol Use: No Hx Substance Use: No Hx Substance Use Treatment: No Allergies/Home Meds Allergies/Adverse Reactions: Allergies cephalexin [From Keflex] Allergy (Severe, Verified 01/10/18 07:51) RASH codeine Allergy (Severe, Verified 01/10/18 07:51) RASH/SOB Iodine and Iodide Containing Produc Allergy (Severe, Verified 01/10/18 07:51) ANAPHYLAXIS latex Allergy (Severe, Verified 01/10/18 07:51) ANAPHYLAXIS peanut Allergy (Severe, Verified 01/10/18 07:51) ANAPHYLAXIS Penicillins Allergy (Severe, Verified 01/10/18 07:51) RASH/SOB shellfish derived Allergy (Verified 01/10/18 07:51) ANAPHYLAXIS Home Medications: Home Meds Medication Instructions Recorded Confirmed Albuterol Sulfate [Ventolin Hfa] 1 puff INH TID PRN 01/10/18 01/10/18 Pyridostigmine [Mestinon Timespan] 180 mg PO HS 01/10/18 01/10/18 Review of Systems - Review of Systems Constitutional: Fatigue Eyes: Normal ENT: Normal Respiratory: SOB Cardiovascular: Chest Pain, Palpitations Gastrointestinal: Normal Genitourinary Female: Normal Musculoskeletal: Normal Skin: Normal Neurological: Dizziness Endocrine: Normal Hemo/Lymphatic: Normal Psychiatric: Normal Physical Exam - Physical Exam Narrative Physical Exam (Text): 01/10/18 08:43 General: alert/awake, GCS = 15, oriented x 3, resting in bed, uncomfortable, cooperative, interactive; severe distress due to respiration Head: NC/AT EYE: PERRLA, EOMI, sclera anicteric, no nystagmus, no photophobia; visual field intact b/l Facial: WNL Oral: uvula/tongue are midline, no exudate/lesions, no drooling/stridor, no dysphonia; intact dentitions NECK: intact ROM, no midline tenderness, no nuchal rigidity, no meningeal signs ; no step off; NO JVD noted b/l Chest: + decr breath sounds to right lower lung poole, + coarse breath sounds, +severe tachypenia, + accessory muscle use noted; no w/rales noted, no rhonchi noted CHEST wall: no crepitus, no gross deformities, old mid-line surg wound (well healed) Cardiac: +S1, +S2, no m/r/r, no tachycardia Abdominal: +BS, soft/nd/nt, well nourished patient; no masses/rebound/guarding/ rigidity; no de los santos's sign, no mcburney's point tenderness Extremities: intact ROM, strength 5-/5 grossly intact in all limbs, neurovasc intact b/l; + ambulatory; reflex +2/2 BACK: no step off, no midline tenderness, NO crepitus, no gross deformities noted; Intact ROM SKIN: cap refill < 1 sec, no ulcerations, no petechiae, no rashes NEURO: CNII-XII WNL, no facial asymmetries, no slurr speech, oriented x 3 NIH stroke scale ~ 0 Psych: normal insight, normal affect; follows command with ease Physical Exam Limitations: Other Vital Signs Reviewed: Yes Vital Signs Temp Pulse Resp BP Pulse Ox 01/10/18 11:19 98.0 F 86 20 138/84 100 01/10/18 10:37 83 01/10/18 08:56 78 29 H 122/90 99 01/10/18 08:31 90 01/10/18 08:29 90 01/10/18 07:52 97.9 F 87 22 138/78 96 01/10/18 07:51 97.9 F 87 22 138/78 95 Temperature: Afebrile Blood Pressure: Normal Pulse: Regular Respiratory Rate: Tachypneic Appearance: Positive for: Ill-Appearing, Uncomfortable, Other (distress due to difficulty with respiration) Mental Status: Positive for: Alert and Oriented X 3 - Systems Exam Head: Present: Atraumatic, Normocephalic Medical Decision Making ED Course and Treatment: 01/10/18 08:08 Impression: acute shortness of breath, weakness i have consider all the differential diagnosis regarding pt's chief medical complaints/clinical findings, including but are not limited to: acute shortness of breath, weakness, concern for MG crisis A/P: MG crisis, shortness of breath chest pain - xray - iv - labs - acs eval - supportive care - observe/reevaluation 01/10/18 08:[address] Garibay, neurologist at [facility], who has been monitoring patients myasthenia gravis. Recommends steroid bolus 125 mg of Solumedrol and consult with [place] neurologist Dr. Rito Cardozo. Asks for Dr. Cardozo to call him back. 01/10/18 08:[address] Rito Cardozo, who is aware of and in agreement with ED management. Recommends ICU placement and CT chest. Request for ICU team to contact him regarding starting IVIG infusion. 01/10/18 08:35 I spoke to ICU attending, Dr Walker, made aware, will evaluate patient in the emergency department, will likely admit patient up to the ICU pt is currently on bipap and appearing comfortable, RR is now 10-12 pt is able to speak full sentences now 09[address]ih Dr[address] Stan Freeman, hospitalist motion picture camera operator, who is aware of and in agreement with plan for admission. 0930 pt is comfortable pt is not in severe distress currently pt is made aware of her medical results agrees with admission 945 ICU team at bedside, would like abx coverage, agrees with emergency department mgt currently and will accept patient to the ICU Re-evaluation Time: 08:39 Reassessment Condition: Improving,but remains with symptoms - Critical Care Critical Care Minutes: 60 minutes Critical Care Time: Excluding Proc Time Narrative Critical Care (Text): 01/10/18 10:07 critical care time: 60min, excluding procedure time, excluding time teaching residents/students/mid-level providers; including initial eval/diagnosis, diagnostic interpretation, re-eval, consultations, final disposition - Lab Interpretations Lab Results: 01/10/18 08:32 01/10/18 08:32 Lab Results 01/10/18 08:45: pCO2 39, pO2 171.0 H, HCO3 21.5, ABG pH 7.35, ABG Total CO2 22.7 , ABG O2 Saturation 100.0 H, ABG O2 Content 16.4, ABG Base Excess -3.8 L, ABG Hemoglobin 11.8, ABG Carboxyhemoglobin 2.4 H, POC ABG HHb (Measured) 0, ABG Methemoglobin 0.9, ABG O2 Capacity 16.4, Hgb O2 Saturation 96.6, FiO2 50.0 01/10/18 08:32: Sodium 144, Chloride 113 H, Potassium 3.7, Carbon Dioxide 21, Anion Gap 13, BUN 14, Creatinine 0.8, Est GFR ( Amer) > 60, Est GFR (Non- Af Amer) > 60, Random Glucose 107, Calcium 9.2, Phosphorus 3.7, Magnesium 1.9, Total Bilirubin 1.6 H, AST 43 H, ALT 37, Alkaline Phosphatase 62, Troponin I < 0.01, NT-Pro-B Natriuret Pep 20.8, Total Protein 8.6 H, Albumin 4.3, Globulin 4.3, Albumin/Globulin Ratio 1.0 L 01/10/18 08:32: pO2 87 H, VBG pH 7.36, VBG pCO2 40.0, VBG HCO3 22.6, VBG Total CO2 23.8, VBG O2 Sat (Calc) 98.2 H, VBG Base Excess -2.7 L, VBG Potassium 3.8, Sodium 141.0, Chloride 110.0 H, Glucose 113 H, Lactate 3.7 H, FiO2 21.0, Venous Blood Potassium 3.8 01/10/18 08:32: PT 11.1, INR 0.97, APTT 18.5 L 01/10/18 08:32: WBC 8.2, RBC 4.14, Hgb 12.5, Hct 36.7, MCV 88.6, MCH 30.2, MCHC 34.1, RDW 18.0 H, Plt Count 519 H, MPV 8.6, Gran % 61.2, Lymph % (Auto) 23.4, [place] % (Auto) 12.6 H, Eos % (Auto) 2.1, Baso % (Auto) 0.7, Gran # 5.01, Lymph # (Auto) 1.9, [place] # (Auto) 1.0 H, Eos # (Auto) 0.2, Baso # (Auto) 0.06, ESR 90 H I have reviewed the lab results: Yes Interpretation: Abnormal lab values (elevated lactate) - RAD Interpretation Narrative RAD Interpretations (Text): Report Date : 01/10/2018 08:44:05 Procedure: Chest xray Dictator : Po Paredes MD IMPRESSION: Right lower lobe infiltrate and right pleural effusion remain essentially unchanged accounting for differences in technique (portable examination compared to the prior two-view chest). 01/10/18 13:23 PROCEDURE: CT Chest without contrast HISTORY: acute sob, recent thoracentesis, myasthenia gravis COMPARISON: Portable chest 12/04/2017 TECHNIQUE: Contiguous axial images were obtained through the chest without intravenous contrast enhancement. Sagittal and coronal reconstructions were performed. Radiation dose (DLP): 433 mGy-cm. This CT exam was performed using one or more of the following dose reduction techniques: Automated exposure control, adjustment of the mA and/or kV according to patient size, and/or use of iterative reconstruction technique. FINDINGS: LUNGS: Elevation the right hemidiaphragm. Small right effusion. Minimal atelectasis at the right lung base MEDIASTINUM: Unremarkable thoracic aorta. No aneurysm. Normal sized heart. Main pulmonary artery unremarkable. No vascular congestion. There is a 2.5 cm pretracheal lymph node. Smaller mediastinal lymph nodes are seen. PLEURA: No pleural fluid. No pneumothorax. BONES: Sternal wires UPPER ABDOMEN: Grossly unremarkable. OTHER FINDINGS: None. IMPRESSION: Elevation of the right hemidiaphragm. Small right effusion. Minimal atelectasis at the right lung base No evidence of pneumothorax Radiology Orders: 01/10/18 08:02 CHEST PORTABLE [RAD] Stat 01/10/18 08:27 CHEST W/O CONTRAST [CT] Stat Unit Control Worker: Radiologist - EKG Interpretation EKG Interpretation (Text): 01/10/18 10:07 SR at 85 bpm, with 1st degree av block, normal axis, no ectopy, inverted T in leads V1-2, low voltage anterio-lateral leads; ABNL EKG; changes compare with old ekg 12/2017 Interpreted by ED Physician: Yes Type: 12 lead EKG Comparison: Different from prev. EKG - Medication Orders Current Medication Orders: Albuterol Sulfate (Albuterol 0.083% Inhal Sanjuana (2.5 Mg/3 Ml) Ud) 2.5 mg IH TID ANNIE Home Med (Home Med) 1 unit PO 2300 [facility] Immune Globulin 55 gm/ (Miscellaneous) 550 mls @ 34.01 mls/hr IV ONCE ONE PRN Reason: 1 MG/KG/MIN Stop: 01/11/18 02:10 Last Admin: 01/10/18 11:34 Dose: 34.01 mls/hr eMAR Start Stop Document 01/10/18 11:34 [email or web address] (Rec: 01/10/18 11:45 [email or web address] [id number]) Intravenous Solution Start Date 01/10/18 Start Time 11:35 Doxycycline Hyclate 100 mg/ (Sodium Chloride) 100 mls @ 100 mls/hr IV Q12 ANNIE Meropenem 500 mg/ Sodium (Chloride) 50 mls @ 100 mls/hr IVPB Q8H ANNIE PRN Reason: Protocol Stop: 01/10/18 21:44 Pyridostigmine [place] (Mestinon Tab) 60 mg PO 0500,1100,1700 ANNIE Discontinued Medications Home Med (Home Med) 0 unit PO HS ANNIE Sodium Chloride (Sodium Chloride 0.9%) 1,000 mls @ 2,000 mls/hr IV .Q30M ONE Stop: 01/10/18 08:31 Last Admin: 01/10/18 08:50 Dose: 2,000 mls/hr eMAR Start Stop Document 01/10/18 08:50 [email or web address] (Rec: 01/10/18 09:46 [email or web address] [id number]) Intravenous Solution Start Date 01/10/18 Start Time 08:50 Meropenem (Merrem Iv 1 Gm Premix) 50 mls @ 100 mls/hr IVPB STAT STA PRN Reason: Protocol Stop: 01/10/18 09:36 Last Admin: 01/10/18 09:46 Dose: 100 mls/hr eMAR Start Stop Document 01/10/18 09:46 [email or web address] (Rec: 01/10/18 09:46 [email or web address] [id number]) Intravenous Solution Start Date 01/10/18 Start Time 09:46 End Date 01/10/18 Methylprednisolone (Solu-Medrol) 125 mg IVP STAT STA Stop: 01/10/18 08:18 Last Admin: 01/10/18 09:46 Dose: 125 mg IVP Administration Document 01/10/18 09:46 [email or web address] (Rec: 01/10/18 09:46 [email or web address] [id number]) Charges for Administration # of IVP Administrations 1 Pyridostigmine [place] (Mestinon Tab) 60 mg PO TID ANNIE Last Admin: 01/10/18 11:34 Dose: 60 mg Disposition/Present on Arrival - Present on Arrival Any Indicators Present on Arrival: No History of DVT/PE: No History of Uncontrolled Diabetes: No Urinary Catheter: No History of Decub. Ulcer: No History Surgical Site Infection Following: None - Disposition Have Diagnosis and Disposition been Completed?: Yes Diagnosis: Pleural effusion, Myasthenia gravis in crisis, Acute respiratory distress Disposition: HOSPITALIZED Disposition Time: 08:42 Patient Plan: ICU Patient Problems: Current Active Problems Problem Status Onset Pleural effusion Chronic Myasthenia exacerbation Acute ~12/10/17 Acute respiratory distress Acute Condition: FAIR
[2018-01-10 08:36] LABS: BASO # 0.06 K/mm3 (0.0-2.0); BASO % 0.7 % (0.0-3.0); EOS # 0.2 (0.0-0.7); EOS % 2.1 % (1.5-5.0); GRAN # 5.01 (1.4-6.5); GRAN % 61.2 % (50.0-68.0); HEMOGLOBIN 12.5 g/dL (12.0-16.0); LYMPH # 1.9 (1.2-3.4); LYMPH % 23.4 % (22.0-35.0); MEAN CELL VOLUME 88.6 fl (80.0-105.0); MEAN CORPUSCULAR HEMOGLOBIN 30.2 pg (25.0-35.0); MEAN CORPUSCULAR HGB CONC 34.1 g/dl (31.0-37.0); MEAN PLATELET VOLUME 8.6 fl (7.0-11.0); MONO % 12.6 % (1.0-6.0); RBC 4.14 10^6/uL (3.5-6.1); WHITE BLOOD COUNT 8.2 10^3/ul (4.5-11.0)
[2018-01-10 08:39] LABS: VENOUS BLOOD GAS BASE EXCESS -2.7 mmol/L (0.0-2.0); VENOUS BLOOD GAS PO2 87 mm/Hg (30-55); VENOUS BLOOD PH 7.36 (7.32-7.43)
--- NOTE | 2018-01-10 08:45 | RAD ---
HISTORY: SOB, hx of Myasthenia gravis, myasthenia crisis? COMPARISON: 12/04/2017 FINDINGS: LUNGS: Persistent right lower lobe infiltrate. PLEURA: Persistent, smaller right pleural effusion. CARDIOVASCULAR: No radiographic findings to suggest acute or significant cardiovascular disease. Incidental Finding(s): Postoperative changes related to sternotomy. OSSEOUS STRUCTURES: No significant abnormalities. VISUALIZED UPPER ABDOMEN: Normal. OTHER FINDINGS: None. IMPRESSION: Right lower lobe infiltrate and right pleural effusion remain essentially unchanged accounting for differences in technique (portable examination compared to the prior two-view chest).
[2018-01-10 08:47] LABS: ALBUMIN 4.3 g/dL (3.0-4.8); ALT/SGPT 37 U/L (7-56); AST/SGOT 43 U/L (14-36); BLOOD UREA NITROGEN 14 mg/dL (7-21); CALCIUM 9.2 mg/dL (8.4-10.5); GFR AFRICAN-AMERICAN > 60; GFR NON-AFRICAN AMERICAN > 60
[2018-01-10 08:52] LABS: ARTERIAL BLOOD GAS HCO3 21.5 mmol/L (21-28); ARTERIAL BLOOD GAS HEMOGLOBIN 11.8 g/dL (11.7-17.4); ARTERIAL BLOOD GAS O2 CAPACITY 16.4 mL/dl (16-24); ARTERIAL BLOOD GAS O2 CONTENT 16.4 ML/dl (15-23); ARTERIAL BLOOD GAS PCO2 39 mm/Hg (35-45); ARTERIAL BLOOD GAS PH 7.35 (7.35-7.45); ARTERIAL BLOOD GAS TCO2 22.7 mmol.L (22-28)
[2018-01-10 08:56] LABS: INR 0.97 (0.93-1.08); PARTIAL THROMBOPLASTIN TIME 18.5 Seconds (25.1-36.5); PROTHROMBIN TIME 11.1 SECONDS (9.4-12.5)
[2018-01-10 08:58] LABS: B-TYPE NATRIURETIC PEPTIDE 20.8 pg/mL (0-450); TROPONIN I < 0.01 ng/mL
[2018-01-10] MEDS ORDERED: Meropenem IV 1 gm in NS 50 ML IVPB STA (09:07)
--- NOTE | 2018-01-10 09:28 | CP.PCM.HP ---
<Torres Rosas - Last Filed: 01/10/18 14:00> Meds Allergies/Adverse Reactions: Allergies Allergy/AdvReac Type Severity Reaction Status Date / Time cephalexin [From Keflex] Allergy Severe RASH Verified 01/10/18 07:51 codeine Allergy Severe RASH/SOB Verified 01/10/18 07:51 Iodine and Iodide Containing Allergy Severe ANAPHYLAXIS Verified 01/10/18 07:51 Produc latex Allergy Severe ANAPHYLAXIS Verified 01/10/18 07:51 peanut Allergy Severe ANAPHYLAXIS Verified 01/10/18 07:51 Penicillins Allergy Severe RASH/SOB Verified 01/10/18 07:51 shellfish derived Allergy ANAPHYLAXIS Verified 01/10/18 07:51 Results - Vital Signs Recent Vital Signs: Last Vital Signs Temp 98 F 01/10/18 13:09 Pulse 79 01/10/18 13:09 Resp 26 H 01/10/18 13:09 BP 126/81 01/10/18 13:09 Pulse Ox 99 01/10/18 12:34 - Labs Result Diagrams: 01/10/18 08:32 01/10/18 08:32 Labs: Laboratory Results - last 24 hr 01/10/18 01/10/18 01/10/18 09:25 12:01 12:15 pO2 161 H VBG pH 7.34 VBG pCO2 39.0 L VBG HCO3 21.0 VBG Total CO2 22.2 VBG O2 Sat (Calc) 99.8 H VBG Base Excess -4.4 L VBG Potassium 4.0 Sodium 142.0 Chloride 114.0 H Glucose 134 H Lactate 1.3 FiO2 21.0 Troponin I 0.01 Triglycerides Cholesterol LDL Cholesterol Direct HDL Cholesterol Venous Blood Potassium 4.0 Urine Color Yellow Urine Appearance Clear Urine pH 6.0 Ur Specific [place] 1.025 Urine Protein 100 H Urine Glucose (UA) Negative Urine Ketones Negative Urine Blood Trace-lysed H Urine Nitrate Negative Urine Bilirubin Negative Urine Urobilinogen 0.2 Ur Leukocyte Esterase Negative Urine RBC 0 - 2 Urine WBC 0 - 2 Ur Epithelial Cells 1 - 3 Urine Bacteria Few 01/10/18 12:30 pO2 VBG pH VBG pCO2 VBG HCO3 VBG Total CO2 VBG O2 Sat (Calc) VBG Base Excess VBG Potassium Sodium Chloride Glucose Lactate FiO2 Troponin I Triglycerides 220 H Cholesterol 227 H LDL Cholesterol Direct 115 HDL Cholesterol 42 Venous Blood Potassium Urine Color Urine Appearance Urine pH Ur Specific [place] Urine Protein Urine Glucose (UA) Urine Ketones Urine Blood Urine Nitrate Urine Bilirubin Urine Urobilinogen Ur Leukocyte Esterase Urine RBC Urine WBC Ur Epithelial Cells Urine Bacteria <Alisha Osorio - Last Filed: 01/10/18 14:09> History of Present Illness - History of Present Illness History of Present Illness: PGY-[address] Gill CC: SOB Hx myasthnia crisis 2 months ago Ms Unger, 47 F, 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 She was discharged 3 weeks ago, not on the prednisone 60mg that she was discharged with due to side effect of edema. Last IVIG infusion was 2 weeks ago. Today, pt tried to stop her 4 dogs fighting, and in the process she became dyspneic and extreme fatique. She had chronic chest tightness from pleural effusion but the chest tightness was worsened Pt has a cervical lymphadenopathy in Sep 2017. During ultrasound, a mass in thorax was detected which turned out to be a thymoma. In the same month, she started to have swallowing difficulty, diplopia, fatique, and was diagnosed with myasthenia gravis the same month. In October, she underwent thymectomy with Dr. Flora Hunt, [place], [place]. Since then, she required thoracentesis. In November, she suddenly had worsening SOB after her IVIg session, was transferred from Dr Phoenix torres to [facility] ICU for myasthenia crisis, requiring intubation/thoracentesis/IVIG. She had 5 total thoracentesis, last one was in ICU beginning of December. 1 of the 5 pleural fluid showed positive for thymoma cells (Bx 12/12/17). She was discharged from [facility] to home 3 weeks ago with prednisone 60mg taper. Pt only took it x 1 day and discontinued it due to body edema and facial swelling. She went to Dr Garibay office 2 weeks ago (Sat & Sat) for IVIg infusion with corticosteroid. She is to have outpt IVIg every 3 weeks. Home CPAP will be delivered home. Pt will follow up with [facility] to further evaluate whether there is remnant of thymoma after stablizing. Pt was planning to have an outpatient thoracentesis. CXR: RLL infiltrate and R pleural effusion Echo (12/12/17) EF 73% In the ED, FVC is 700cc. 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 Close female friend usually visits her. Boyfriend live closed by Denies ever smoke. No drink, drug Ambulate independently without assist All penicillin, Keflex, codine, iodine, shellfish, latex, peanuts Med Pyridostigmine extended release 180 HS with regular release 60 TID during the day Albuterol nebulizer ventolin PRN Pharm [address] Yunier Garibay, neurologist Dr Odalys Rosas, heme/onc Dr Danielle Hunt, thoracic surgeon, Present on Admission - Present on Admission Any Indicators Present on Admission: No Review of Systems - Review of Systems Systems not reviewed;Unavailable: Respiratory Distress, Other (on bipap. cannot finish 1 complete sentences) - Constitutional Constitutional: Fatigue, Headache. absent: Chills, Lethargy - EENT Eyes: Blurred Vision, Change in Vision, Diplopia. absent: Loss of Peripheral Vision, Pain, Photophobia, Sees Flashes, Tunnel Vision Ears: absent: Decreased Hearing, Ear Pain, Abnormal Hearing, Disequilibrium Nose/Mouth/Throat: absent: Nasal Congestion, Nasal Discharge, Nasal Obstruction , Sore Throat, Facial Pain - Cardiovascular Cardiovascular: Chest Pain. absent: Irregular Heart Rhythm, Leg Edema, Palpitations, Pedal Edema - Respiratory Respiratory: Dyspnea, Dyspnea on Exertion. absent: Cough, Hemoptysis, Stridor, Pain on Inspiration, Chest Congestion, Excessive Mucous Production, Pain with Coughing - Gastrointestinal Gastrointestinal: Change in Bowel Habits (loose formed stool, chronic), Loose Stools. absent: Bloating, Constipation, Cramping, Nausea - Genitourinary Genitourinary: absent: Difficulty Urinating, Dysuria, Flank Pain, Hematuria, Urinary Urgency - Musculoskeletal Musculoskeletal: Muscle Weakness (chronic, fluctuating), Numbness (fluctuate, chronic) - Neurological Neurological: Headaches, Paresthesias (chronic, fluctuating), Sensory Deficit ( chronic, fluctuating), Weakness (chronic, fluctuating), Other Visual Disturbances (chronic, fluctuating) - Psychiatric Psychiatric: absent: Anxiety, Mood Swings - Hematologic/Lymphatic Hematologic: absent: Easy Bleeding, Easy Bruising Past Patient History - Infectious Disease Hx of Infectious Diseases: None - Tetanus Immunizations Tetanus Immunization: Unknown - Past Social History Smoking Status: Never Smoked - CARDIAC Hx Pacemaker: No - PULMONARY Hx Asthma: Yes - NEUROLOGICAL Hx Neurological Disorder: No - HEENT Hx HEENT Problems: No - RENAL Hx Chronic Kidney Disease: No - ENDOCRINE/METABOLIC Hx Endocrine Disorders: No - HEMATOLOGICAL/ONCOLOGICAL Hx Blood Disorders: No - INTEGUMENTARY Hx Dermatological Problems: No - MUSCULOSKELETAL/RHEUMATOLOGICAL Hx Musculoskeletal Disorders: No Hx Myasthenia Gravis: Yes - GASTROINTESTINAL Hx Gastrointestinal Disorders: No - GENITOURINARY/GYNECOLOGICAL Hx Genitourinary Disorders: No - PSYCHIATRIC Hx Anxiety: Yes Hx Depression: Yes Hx Substance Use: No - SURGICAL HISTORY Hx Appendectomy: Yes - ANESTHESIA Hx Anesthesia: Yes Hx Anesthesia Reactions: Yes (TROUBLE WAKING) Hx Malignant Hyperthermia: No Physical Exam - Constitutional Additional comments: On bipap, speaking in choppy sentences - Head Exam Head Exam: ATRAUMATIC, NORMAL INSPECTION, NORMOCEPHALIC - Eye Exam Eye Exam: EOMI, Normal appearance, PERRL. absent: Scleral icterus - ENT Exam ENT Exam: Mucous Membranes Moist - Neck Exam Additional comments: supple - Respiratory Exam Respiratory Exam: Decreased Breath Sounds (R > L), Respiratory Distress (On bipap). absent: Accessory Muscle Use, Rales, Rhonchi, Wheezes - Cardiovascular Exam Cardiovascular Exam: REGULAR RHYTHM, +S1, +S2 - GI/Abdominal Exam GI & Abdominal Exam: Normal Bowel Sounds, Soft. absent: Distended, Firm, Guarding, Rebound, Rigid, Tenderness - Extremities Exam Extremities exam: Positive for: pedal pulses present. Negative for: calf tenderness, pedal edema - Neurological Exam Neurological exam: Alert, Motor Sensory Deficit (motor 3/3 all extremities. Sensory markedly diminish distal limbs. ), Oriented x3 Additional comments: EOMI. Diplopia Sensation V1,2,3 intact. Tongue midline - Psychiatric Exam Psychiatric exam: Normal Affect, Normal Mood - Skin Skin Exam: Dry, Warm Results - Vital Signs Recent Vital Signs: Last Vital Signs Temp 97.9 F 01/10/18 07:52 Pulse 78 01/10/18 08:56 Resp 29 H 01/10/18 08:56 BP 122/90 01/10/18 08:56 Pulse Ox 99 01/10/18 08:56 - Labs Result Diagrams: 01/10/18 08:32 01/10/18 08:32 Labs: Laboratory Results - last 24 hr 01/10/18 01/10/18 01/10/18 08:32 08:32 08:32 WBC 8.2 RBC 4.14 Hgb 12.5 Hct 36.7 MCV 88.6 MCH 30.2 MCHC 34.1 RDW 18.0 H Plt Count 519 H MPV 8.6 Gran % 61.2 Lymph % (Auto) 23.4 [place] % (Auto) 12.6 H Eos % (Auto) 2.1 Baso % (Auto) 0.7 Gran # 5.01 Lymph # (Auto) 1.9 [place] # (Auto) 1.0 H Eos # (Auto) 0.2 Baso # (Auto) 0.06 PT 11.1 INR 0.97 APTT 18.5 L pCO2 pO2 87 H HCO3 ABG pH ABG Total CO2 ABG O2 Saturation ABG O2 Content ABG Base Excess ABG Hemoglobin ABG Carboxyhemoglobin POC ABG HHb (Measured) ABG Methemoglobin ABG O2 Capacity VBG pH 7.36 VBG pCO2 40.0 VBG HCO3 22.6 VBG Total CO2 23.8 VBG O2 Sat (Calc) 98.2 H VBG Base Excess -2.7 L VBG Potassium 3.8 Hgb O2 Saturation Sodium 141.0 Chloride 110.0 H Glucose 113 H Lactate 3.7 H FiO2 21.0 Potassium Carbon Dioxide Anion Gap BUN Creatinine Est GFR ( Amer) Est GFR (Non-Af Amer) Random Glucose Calcium Phosphorus Magnesium Total Bilirubin AST ALT Alkaline Phosphatase Troponin I NT-Pro-B Natriuret Pep Total Protein Albumin Globulin Albumin/Globulin Ratio Venous Blood Potassium 3.8 01/10/18 01/10/18 08:32 08:45 WBC RBC Hgb Hct MCV MCH MCHC RDW Plt Count MPV Gran % Lymph % (Auto) [place] % (Auto) Eos % (Auto) Baso % (Auto) Gran # Lymph # (Auto) [place] # (Auto) Eos # (Auto) Baso # (Auto) PT INR APTT pCO2 39 pO2 171.0 H HCO3 21.5 ABG pH 7.35 ABG Total CO2 22.7 ABG O2 Saturation 100.0 H ABG O2 Content 16.4 ABG Base Excess -3.8 L ABG Hemoglobin 11.8 ABG Carboxyhemoglobin 2.4 H POC ABG HHb (Measured) 0 ABG Methemoglobin 0.9 ABG O2 Capacity 16.4 VBG pH VBG pCO2 VBG HCO3 VBG Total CO2 VBG O2 Sat (Calc) VBG Base Excess VBG Potassium Hgb O2 Saturation 96.6 Sodium 144 Chloride 113 H Glucose Lactate FiO2 50.0 Potassium 3.7 Carbon Dioxide 21 Anion Gap 13 BUN 14 Creatinine 0.8 Est GFR ( Amer) > 60 Est GFR (Non-Af Amer) > 60 Random Glucose 107 Calcium 9.2 Phosphorus 3.7 Magnesium 1.9 Total Bilirubin 1.6 H AST 43 H ALT 37 Alkaline Phosphatase 62 Troponin I < 0.01 NT-Pro-B Natriuret Pep 20.8 Total Protein 8.6 H Albumin 4.3 Globulin 4.3 Albumin/Globulin Ratio 1.0 L Venous Blood Potassium Assessment & Plan - Assessment and Plan (Free Text) Plan: Ms Unger, 47 F, 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 She was discharged 3 weeks ago, not on the prednisone 60mg that she was discharged with due to side effect of edema. Last IVIG infusion was 2 weeks ago. Today, pt has worsening dyspneic on exertion and extreme fatique. She had chronic chest tightness from pleural effusion but the chest tightness was worsened. Diplopia, motor weakness, paresthsia, dysphagia all worsened today. She is likely having a myasthenia gravis exacerbation. In the ED, FVC is 700cc ( 13 ml/kg). NIF is negative 30 cm H2O. CXR showed R lower lobe infiltreate and R pleural effusion, unchanged. Myasthenia gravis exacerbation - Admit to ICU - Monitor FVC, NIF, Peak flow, QID (Per ICU) - suction as needed due to reduce strength of cough - BIPAP for now; intubation as needed VC falls below 15 to 20 mL/kg MIP is less negative than -25 to -30 cmH20 (ie, between 0 and -30 cmH20) - Pyridostigmine IR @ 0500, 1100, 1700; Pyridostigmine ER @ 2300 - IVIG 55gm x 1 - solumedrol 125 mg x 1 - low threshold to intubate - aspiration precaution - Neuro and Heme on board; Defer decision to (1) plasmapheresis, (2) steroid to heme/neuro - PT, OT, ST Chest pressure likely from R lower lobe infiltrate and R pleural effusion - Trops #1 < 0.01. Pending next 2 trops - Echocardiogram - A1C, TSH, lipid R lower lobe infiltrate, questionable pneumonia - Albuterol 2.5 IH TID - Merem q8, Doxycyclin 100 Q12 - Pending urine culture, blood culture, procalcitonin, flu screen, strep Ag, mycoplasma Ag, Legionella Ag - Pending CT chest - ID consult R pleural effusion - May consider therapeutic thoracentesis, ICU management Prophylaxis - Protonix, Heparin Diet: NPO pending decision to intubate s/r/d/w Dr. Lama <Raudel Lama - Last Filed: 01/10/18 17:07> Results - Vital Signs Recent Vital Signs: Last Vital Signs Temp 98 F 01/10/18 13:09 Pulse 78 01/10/18 16:26 Resp 26 H 01/10/18 13:09 BP 126/81 01/10/18 13:09 Pulse Ox 99 01/10/18 12:34 - Labs Result Diagrams: 01/10/18 08:32 01/10/18 08:32 Labs: Laboratory Results - last 24 hr 01/10/18 01/10/18 01/10/18 09:25 12:01 12:15 pCO2 pO2 161 H HCO3 ABG pH ABG Total CO2 ABG O2 Saturation ABG Base Excess ABG Potassium VBG pH 7.34 VBG pCO2 39.0 L VBG HCO3 21.0 VBG Total CO2 22.2 VBG O2 Sat (Calc) 99.8 H VBG Base Excess -4.4 L VBG Potassium 4.0 Sodium 142.0 Chloride 114.0 H Glucose 134 H Lactate 1.3 FiO2 21.0 Pressure Support Inspiratory BiPAP Troponin I 0.01 Triglycerides Cholesterol LDL Cholesterol Direct HDL Cholesterol Arterial Blood Potassium Venous Blood Potassium 4.0 Urine Color Yellow Urine Appearance Clear Urine pH 6.0 Ur Specific [place] 1.025 Urine Protein 100 H Urine Glucose (UA) Negative Urine Ketones Negative Urine Blood Trace-lysed H Urine Nitrate Negative Urine Bilirubin Negative Urine Urobilinogen 0.2 Ur Leukocyte Esterase Negative Urine RBC 0 - 2 Urine WBC 0 - 2 Ur Epithelial Cells 1 - 3 Urine Bacteria Few 01/10/18 01/10/18 12:30 15:10 pCO2 38 pO2 102.0 H HCO3 21.0 ABG pH 7.35 ABG Total CO2 22.2 ABG O2 Saturation 99.4 H ABG Base Excess -4.2 L ABG Potassium 3.3 L VBG pH VBG pCO2 VBG HCO3 VBG Total CO2 VBG O2 Sat (Calc) VBG Base Excess VBG Potassium Sodium 140.0 Chloride 115.0 H Glucose 161 H Lactate 1.3 FiO2 40.0 Pressure Support 7 Inspiratory BiPAP 12 Troponin I Triglycerides 220 H Cholesterol 227 H LDL Cholesterol Direct 115 HDL Cholesterol 42 Arterial Blood Potassium 3.3 L Venous Blood Potassium Urine Color Urine Appearance Urine pH Ur Specific [place] Urine Protein Urine Glucose (UA) Urine Ketones Urine Blood Urine Nitrate Urine Bilirubin Urine Urobilinogen Ur Leukocyte Esterase Urine RBC Urine WBC Ur Epithelial Cells Urine Bacteria Attending/Attestation - Attestation I have personally seen and examined this patient.: Yes I have fully participated in the care of the patient.: Yes I have reviewed all pertinent clinical information: Yes Notes (Text): 01/10/18 17:02 attending note; Patient seen and examined with resident in ER. Patient is a 47 -year-old female with the recent diagnosis of thymoma & myasthenia gravis s/p thymectomy since October 2017, myasthenia crisis in November 2017 ,previous intubation is admitted for worsening of dyspnea. Acute myasthenia crisis. Monitor tidal volume and an NIP. Patient is currently on BiPAP. ICU evaluation appreciated. Case discussed with dressing machine operator in detail. Patient got IV Steroid. IVIG ordered by neurology. Continue Mestinon. Right-sided pleural effusion; patient with a history of thoracentesis in the past. monitor closely with pulmonary. started on doxycycline and meropenem. case discussed with neurology Dr. Cardozo in detail. Status post thymoma resection. Recent thoracentesis showed thymoma cells. we will get oncology evaluation. Monitor patient closely in ICU. Case discussed with PMD Dr. Santos in detail.
[2018-01-10 09:47] LABS: URINE APPEARANCE CLEAR (CLEAR); URINE BILIRUBIN NEGATIVE (NEGATIVE); URINE BLOOD TRACE-LYSED (NEGATIVE); URINE COLOR YELLOW (YELLOW); URINE GLUCOSE (UA) NEGATIVE (NEGATIVE); URINE LEUKOCYTE ESTERASE NEGATIVE Leu/uL (NEGATIVE); URINE PROTEIN 100 mg/dL (<30 mg/dL); URINE UROBILINOGEN 0.2 E.U./dL (<1 E.U./dL)
[2018-01-10] MEDS ORDERED: levoFLOXacin 750 mg in D5W 750 MG/150 ML BAG IVPB SCH (10:00)
[2018-01-10 10:01] LABS: URINE BACTERIA FEW (NEG); URINE RBC 0 - 2 /hpf (0-2); URINE WBC 0 - 2 /hpf (0-6)
[2018-01-10] MEDS: IMMUNE GLOBULIN IV ONE ×4 (11:34→23:55)
[2018-01-10] MEDS: PREMIXED IV ONE ×4 (11:34→23:55)
[2018-01-10 12:04] LABS: VENOUS BLOOD GAS BASE EXCESS -4.4 mmol/L (0.0-2.0); VENOUS BLOOD GAS PO2 161 mm/Hg (30-55); VENOUS BLOOD PH 7.34 (7.32-7.43)
[2018-01-10] MEDS ORDERED: Meropenem 500 MG in Sodium Chloride 0.9% 50 ML IVPB SCH ×2 (13:15→17:00)
--- NOTE | 2018-01-10 13:16 | CT ---
PROCEDURE: CT Chest without contrast HISTORY: acute sob, recent thoracentesis, myasthenia gravis COMPARISON: Portable chest 12/04/2017 TECHNIQUE: Contiguous axial images were obtained through the chest without intravenous contrast enhancement. Sagittal and coronal reconstructions were performed. Radiation dose (DLP): 433 mGy-cm. This CT exam was performed using one or more of the following dose reduction techniques: Automated exposure control, adjustment of the mA and/or kV according to patient size, and/or use of iterative reconstruction technique. FINDINGS: LUNGS: Elevation the right hemidiaphragm. Small right effusion. Minimal atelectasis at the right lung base MEDIASTINUM: Unremarkable thoracic aorta. No aneurysm. Normal sized heart. Main pulmonary artery unremarkable. No vascular congestion. There is a 2.5 cm pretracheal lymph node. Smaller mediastinal lymph nodes are seen. PLEURA: No pleural fluid. No pneumothorax. BONES: Sternal wires UPPER ABDOMEN: Grossly unremarkable. OTHER FINDINGS: None. IMPRESSION: Elevation of the right hemidiaphragm. Small right effusion. Minimal atelectasis at the right lung base No evidence of pneumothorax
[2018-01-10 13:21] LABS: HDL CHOLESTEROL 42 mg/dL (29-60)
[2018-01-10 13:31] LABS: LDL CHOLESTEROL 115 mg/dL (0-129)
[2018-01-10] MEDS ORDERED: Pneumococcal 23-Valent Vaccine IM ONE (13:35)
[2018-01-10] MEDS: Albuterol 0.083% Inhal Sol (2.5 mg/3 mL) UD IH SCH ×2 (14:06→20:22)
[2018-01-10] MEDS ORDERED: PYRIDOSTIGMINE 180 MG PO ONE (15:15)
[2018-01-10 15:19] LABS: ARTERIAL BLOOD GAS O2 SAT 99.4 % (95-98); ARTERIAL BLOOD GAS PCO2 38 mm/Hg (35-45); ARTERIAL BLOOD GAS PH 7.35 (7.35-7.45); ARTERIAL BLOOD GAS TCO2 22.2 mmol.L (22-28)
--- NOTE | 2018-01-10 16:20 | CP.PCM.CON ---
History of Present Illness - History of Present Illness History of Present Illness: Consult Note for Dr. Cyr 47 F with a PMHx of thymoma type B1 nonmalignant s/p resection, recurrent pleural effusions s/p thoracentesis x5, myasthenia gravis crisis s/p thymectomy with previous IVIG infusions and intubation, diplopia, and dysphagia that presented to [facility] with shortness of breath and generalized weakness. Patient was at home in her usual state of health when she began to feel symptoms similair to previous episodes of myasthenia crises in past. Patient was exerting herself at home with her dog and couldn't catch her breath promting her to seek medical attention. Patient was seen and examined at bedside. Patient on BIPAP, tolerating well. Initial workup included CXR demonstrating RLL infiltrate and R pleural effusion. Patient admitted to shortness of breath and chest discomfort. She denied fever, chills, abdominal pains, nausea, vomiting, diarrhea, constipation, or dysuria. Patient was tolerating po intake and moving bowels and bladder regularly. PMHx: thymoma type B1 nonmalignant s/p resection, recurrent pleural effusions s/ p thoracentesis x5, myasthenia gravis crisis s/p thymectomy with previous IVIG infusions and intubation, diplopia, and dysphagia PSHx: thymectomy, thoracentesis x 5, Appendectomy FamHx: Father: ALS, denied hx of cancers SHx: Denied tobacco/etoh/illicits Allergies:penicillin, Keflex, codine, iodine, shellfish, latex, peanuts Meds: [id number] mg ER HS, 60mg IR TID, Ventolin PRN Review of Systems - Review of Systems Review of Systems: as per HPI otherwise negative Past Patient History - Infectious Disease Hx of Infectious Diseases: None - Tetanus Immunizations Tetanus Immunization: Unknown - Past Social History Smoking Status: Never Smoked - CARDIAC Hx Pacemaker: No - PULMONARY Hx Asthma: Yes - NEUROLOGICAL Hx Neurological Disorder: No - HEENT Hx HEENT Problems: No - RENAL Hx Chronic Kidney Disease: No - ENDOCRINE/METABOLIC Hx Endocrine Disorders: No - HEMATOLOGICAL/ONCOLOGICAL Hx Blood Disorders: No - INTEGUMENTARY Hx Dermatological Problems: No - MUSCULOSKELETAL/RHEUMATOLOGICAL Hx Musculoskeletal Disorders: No Hx Myasthenia Gravis: Yes - GASTROINTESTINAL Hx Gastrointestinal Disorders: No - GENITOURINARY/GYNECOLOGICAL Hx Genitourinary Disorders: No - PSYCHIATRIC Hx Anxiety: Yes Hx Depression: Yes Hx Substance Use: No - SURGICAL HISTORY Hx Appendectomy: Yes - ANESTHESIA Hx Anesthesia: Yes Hx Anesthesia Reactions: Yes (TROUBLE WAKING) Hx Malignant Hyperthermia: No Meds Allergies/Adverse Reactions: Allergies Allergy/AdvReac Type Severity Reaction Status Date / Time cephalexin [From Keflex] Allergy Severe RASH Verified 01/10/18 07:51 codeine Allergy Severe RASH/SOB Verified 01/10/18 07:51 Iodine and Iodide Containing Allergy Severe ANAPHYLAXIS Verified 01/10/18 07:51 Produc latex Allergy Severe ANAPHYLAXIS Verified 01/10/18 07:51 peanut Allergy Severe ANAPHYLAXIS Verified 01/10/18 07:51 Penicillins Allergy Severe RASH/SOB Verified 01/10/18 07:51 shellfish derived Allergy ANAPHYLAXIS Verified 01/10/18 07:51 - Medications Medications: Current Medications Albuterol Sulfate (Albuterol 0.083% Inhal Sanjuana (2.5 Mg/3 Ml) Ud) 2.5 mg IH TID [facility] Last Admin: 01/10/18 14:06 Dose: 2.5 mg Heparin Sodium (Porcine) (Heparin) 5,000 units SC Q8 [facility] PRN Reason: Protocol Last Admin: 01/10/18 13:38 Dose: 5,000 units Home Med (Home Med) 1 unit PO DAILY [facility] Immune Globulin 55 gm/ (Miscellaneous) 550 mls @ 34.01 mls/hr IV ONCE ONE PRN Reason: 1 MG/KG/MIN Stop: 01/11/18 02:10 Last Admin: 01/10/18 11:34 Dose: 34.01 mls/hr Doxycycline Hyclate 100 mg/ (Sodium Chloride) 100 mls @ 100 mls/hr IV Q12 [facility] Last Admin: 01/10/18 13:35 Dose: 100 mls/hr Meropenem 500 mg/ Sodium (Chloride) 50 mls @ 100 mls/hr IVPB Q8H [facility] PRN Reason: Protocol Stop: 01/10/18 21:44 Last Admin: 01/10/18 13:46 Dose: 100 mls/hr Potassium Chloride (Potassium Chloride 20 Meq/100 Ml) 20 meq in 100 mls @ 50 mls/hr IVPB Q2H [facility] Stop: 01/10/18 19:59 Sodium Chloride (Sodium Chloride 0.9%) 1,000 mls @ 100 mls/hr IV .Q10H [facility] Pantoprazole Sodium (Protonix Inj) 40 mg IVP DAILY [facility] Physical Exam - Constitutional Appears: No Acute Distress - Head Exam Head Exam: ATRAUMATIC, NORMAL INSPECTION, NORMOCEPHALIC - Eye Exam Eye Exam: EOMI, Normal appearance, PERRL Pupil Exam: NORMAL ACCOMODATION, PERRL - ENT Exam ENT Exam: Mucous Membranes Moist, Normal Exam - Respiratory Exam Respiratory Exam: Decreased Breath Sounds, NORMAL BREATHING PATTERN - Cardiovascular Exam Cardiovascular Exam: REGULAR RHYTHM, +S1, +S2 - GI/Abdominal Exam GI & Abdominal Exam: Normal Bowel Sounds, Soft. absent: Tenderness - Extremities Exam Extremities exam: Positive for: normal inspection - Neurological Exam Neurological exam: Alert, CN II-XII Intact, Normal Gait, Oriented x3, Reflexes Normal - Psychiatric Exam Psychiatric exam: Normal Affect, Normal Mood - Skin Skin Exam: Dry, Intact, Normal Color, Warm Results - Vital Signs Recent Vital Signs: Last Vital Signs Temp 98 F 01/10/18 13:09 Pulse 81 01/10/18 15:58 Resp 26 H 01/10/18 13:09 BP 126/81 01/10/18 13:09 Pulse Ox 99 01/10/18 12:34 - Labs Result Diagrams: 01/10/18 08:32 01/10/18 08:32 Labs: Laboratory Results - last 24 hr 01/10/18 01/10/18 01/10/18 09:25 12:01 12:15 pCO2 pO2 161 H HCO3 ABG pH ABG Total CO2 ABG O2 Saturation ABG Base Excess ABG Potassium VBG pH 7.34 VBG pCO2 39.0 L VBG HCO3 21.0 VBG Total CO2 22.2 VBG O2 Sat (Calc) 99.8 H VBG Base Excess -4.4 L VBG Potassium 4.0 Sodium 142.0 Chloride 114.0 H Glucose 134 H Lactate 1.3 FiO2 21.0 Pressure Support Inspiratory BiPAP Troponin I 0.01 Triglycerides Cholesterol LDL Cholesterol Direct HDL Cholesterol Arterial Blood Potassium Venous Blood Potassium 4.0 Urine Color Yellow Urine Appearance Clear Urine pH 6.0 Ur Specific [place] 1.025 Urine Protein 100 H Urine Glucose (UA) Negative Urine Ketones Negative Urine Blood Trace-lysed H Urine Nitrate Negative Urine Bilirubin Negative Urine Urobilinogen 0.2 Ur Leukocyte Esterase Negative Urine RBC 0 - 2 Urine WBC 0 - 2 Ur Epithelial Cells 1 - 3 Urine Bacteria Few 01/10/18 01/10/18 12:30 15:10 pCO2 38 pO2 102.0 H HCO3 21.0 ABG pH 7.35 ABG Total CO2 22.2 ABG O2 Saturation 99.4 H ABG Base Excess -4.2 L ABG Potassium 3.3 L VBG pH VBG pCO2 VBG HCO3 VBG Total CO2 VBG O2 Sat (Calc) VBG Base Excess VBG Potassium Sodium 140.0 Chloride 115.0 H Glucose 161 H Lactate 1.3 FiO2 40.0 Pressure Support 7 Inspiratory BiPAP 12 Troponin I Triglycerides 220 H Cholesterol 227 H LDL Cholesterol Direct 115 HDL Cholesterol 42 Arterial Blood Potassium 3.3 L Venous Blood Potassium Urine Color Urine Appearance Urine pH Ur Specific [place] Urine Protein Urine Glucose (UA) Urine Ketones Urine Blood Urine Nitrate Urine Bilirubin Urine Urobilinogen Ur Leukocyte Esterase Urine RBC Urine WBC Ur Epithelial Cells Urine Bacteria Assessment & Plan - Assessment and Plan (Free Text) Assessment: 47 F with a PMHx of thymoma type B1 nonmalignant s/p resection, recurrent pleural effusions s/p thoracentesis x5, myasthenia gravis crisis s/p thymectomy with previous IVIG infusions and intubation, diplopia, and dysphagia that presented to [facility] with shortness of breath and generalized weaknessa admitted for myasthenia gravis crisis. CXR: RLL infiltrate and R pleural effusion. Echo ( 12/12/17) EF 73%. In the ED, FVC is 700cc. NIF: -30 cm H2O. As per chart review, previous pleural fluid demonstrated thymoma cells. Will monitor FVC, NIF, Peak flow. Pt intubated in past, monitor for airway protection. Continue management as per primary/ICU: Pyridostigmine IR & ER IVIG 55gm , solumedrol 125 mg. discuss plasmapheresis and steroids. trend trops for chest discomfort, repeat Echo, R lower lobe infiltrate, on IV abx for emperic therapy, merrem and doxycyline. questionable pneumonia, pending urine culture, blood culture, procalcitonin, flu screen, strep Ag, mycoplasma Ag, Legionella Ag. ID consulted , fu reccs. IR consulted for possible thoracentesis.
[2018-01-10] MEDS: Sodium Chloride 0.9% 1,000 ML IV SCH (17:27)
[2018-01-10] MEDS ORDERED: Famotidine 20mg/50ml 20 MG/50 ML BAG IVPB STA (18:04)
[2018-01-10] MEDS: DiphenhydrAMINE 50 mg/ml Inj IVP PRN (18:11)
--- NOTE | 2018-01-10 18:58 | CARD ---
APPROVED REPORT EKG Measurement Heart [id number] <Conclusion> Normal sinus rhythm Cannot rule out Anterior infarct, age undetermined Abnormal ECG
--- NOTE | 2018-01-10 19:14 | CP.PCM.CON ---
History of Present Illness - History of Present Illness History of Present Illness: Infectious Disease Consultation: January 10, 2018 47 yo female with recent thymoma surgery and myasthenia gravis with myasthenia crisis in November 2017. SOB. On IVIG for myasthenia gravis treatment. The patient was trying to stop her 4 dogs from fighting and became dyspneic and fatigued. The patient was admitted to the MICU. The patient has PCN allergies that lead to rash, swelling, and closing of the throat. She is currently on BiPAP. Case discussed with Dr. Walker and Kelby. PMHx: Thymoma Myasthenia Gravis Myasthenia Crisis Anemia of Chronic Disease Elevated Globulin PSHx: Thymectomy October 2016 Multiple thoracentesis Breast Reduction Appendectomy Allergies: PCN, Iodine, Codeine, Cephalexin. Social Hx: No tobacco, EtOH, or illicit drug use Active Medications Albuterol Sulfate (Albuterol 0.083% Inhal Sanjuana (2.5 Mg/3 Ml) Ud) 2.5 mg IH TID [facility] Last Admin: 01/10/18 14:06 Dose: 2.5 mg Diphenhydramine HCl (Benadryl) 50 mg IVP Q4H PRN PRN Reason: Allergy symptoms Last Admin: 01/10/18 18:11 Dose: 50 mg Heparin Sodium (Porcine) (Heparin) 5,000 units SC Q8 [facility] PRN Reason: Protocol Last Admin: 01/10/18 13:38 Dose: 5,000 units Home Med (Home Med) 1 unit PO DAILY [facility] Immune Globulin 55 gm/ (Miscellaneous) 550 mls @ 34.01 mls/hr IV ONCE ONE PRN Reason: 1 MG/KG/MIN Stop: 01/11/18 02:10 Last Admin: 01/10/18 17:25 Dose: 34.01 mls/hr Doxycycline Hyclate 100 mg/ (Sodium Chloride) 100 mls @ 100 mls/hr IV Q12 [facility] Last Admin: 01/10/18 13:35 Dose: 100 mls/hr Meropenem 500 mg/ Sodium (Chloride) 50 mls @ 100 mls/hr IVPB Q8H [facility] PRN Reason: Protocol Stop: 01/10/18 21:44 Last Admin: 01/10/18 13:46 Dose: 100 mls/hr Potassium Chloride (Potassium Chloride 20 Meq/100 Ml) 20 meq in 100 mls @ 50 mls/hr IVPB Q2H [facility] Stop: 01/10/18 19:59 Last Admin: 01/10/18 17:24 Dose: 50 mls/hr Sodium Chloride (Sodium Chloride 0.9%) 1,000 mls @ 100 mls/hr IV .Q10H [facility] Last Admin: 01/10/18 17:27 Dose: 100 mls/hr Ondansetron HCl (Zofran Inj) 4 mg IVP 0500,1100,1700,2300 PRN PRN Reason: Nausea/Vomiting Last Admin: 01/10/18 17:26 Dose: 4 mg Pantoprazole Sodium (Protonix Inj) 20 mg IVP 0500,1100,1700 [facility] Last Admin: 01/10/18 17:26 Dose: 20 mg Pantoprazole Sodium (Protonix Inj) 40 mg IVP DAILY [facility] Pyridostigmine [place] (Mestinon Tab) 60 mg PO 0500,1100,1700 [facility] Last Admin: 01/10/18 17:35 Dose: 60 mg Family Hx: Melissa Gehric disease ROS: Dyspneic, SOB No fevers, chills, nausea, vomiting, chest pain, abdominal pain, cough, vomiting , headaches, dizziness, melena, hematuria, hematemesis, hematochezia. Past Patient History - Infectious Disease Hx of Infectious Diseases: None - Tetanus Immunizations Tetanus Immunization: Unknown - Past Social History Smoking Status: Never Smoked - CARDIAC Hx Pacemaker: No - PULMONARY Hx Asthma: Yes - NEUROLOGICAL Hx Neurological Disorder: No - HEENT Hx HEENT Problems: No - RENAL Hx Chronic Kidney Disease: No - ENDOCRINE/METABOLIC Hx Endocrine Disorders: No - HEMATOLOGICAL/ONCOLOGICAL Hx Blood Disorders: No - INTEGUMENTARY Hx Dermatological Problems: No - MUSCULOSKELETAL/RHEUMATOLOGICAL Hx Musculoskeletal Disorders: No Hx Myasthenia Gravis: Yes - GASTROINTESTINAL Hx Gastrointestinal Disorders: No - GENITOURINARY/GYNECOLOGICAL Hx Genitourinary Disorders: No - PSYCHIATRIC Hx Anxiety: Yes Hx Depression: Yes Hx Substance Use: No - SURGICAL HISTORY Hx Appendectomy: Yes - ANESTHESIA Hx Anesthesia: Yes Hx Anesthesia Reactions: Yes (TROUBLE WAKING) Hx Malignant Hyperthermia: No Meds Allergies/Adverse Reactions: Allergies Allergy/AdvReac Type Severity Reaction Status Date / Time cephalexin [From Keflex] Allergy Severe RASH Verified 01/10/18 07:51 codeine Allergy Severe RASH/SOB Verified 01/10/18 07:51 Iodine and Iodide Containing Allergy Severe ANAPHYLAXIS Verified 01/10/18 07:51 Produc latex Allergy Severe ANAPHYLAXIS Verified 01/10/18 07:51 peanut Allergy Severe ANAPHYLAXIS Verified 01/10/18 07:51 Penicillins Allergy Severe RASH/SOB Verified 01/10/18 07:51 shellfish derived Allergy ANAPHYLAXIS Verified 01/10/18 07:51 - Medications Medications: Current Medications Albuterol Sulfate (Albuterol 0.083% Inhal Sanjuana (2.5 Mg/3 Ml) Ud) 2.5 mg IH TID [facility] Last Admin: 01/10/18 14:06 Dose: 2.5 mg Diphenhydramine HCl (Benadryl) 50 mg IVP Q4H PRN PRN Reason: Allergy symptoms Last Admin: 01/10/18 18:11 Dose: 50 mg Heparin Sodium (Porcine) (Heparin) 5,000 units SC Q8 [facility] PRN Reason: Protocol Last Admin: 01/10/18 13:38 Dose: 5,000 units Home Med (Home Med) 1 unit PO DAILY [facility] Immune Globulin 55 gm/ (Miscellaneous) 550 mls @ 34.01 mls/hr IV ONCE ONE PRN Reason: 1 MG/KG/MIN Stop: 01/11/18 02:10 Last Admin: 01/10/18 17:25 Dose: 34.01 mls/hr Doxycycline Hyclate 100 mg/ (Sodium Chloride) 100 mls @ 100 mls/hr IV Q12 [facility] Last Admin: 01/10/18 13:35 Dose: 100 mls/hr Meropenem 500 mg/ Sodium (Chloride) 50 mls @ 100 mls/hr IVPB Q8H [facility] PRN Reason: Protocol Stop: 01/10/18 21:44 Last Admin: 01/10/18 13:46 Dose: 100 mls/hr Potassium Chloride (Potassium Chloride 20 Meq/100 Ml) 20 meq in 100 mls @ 50 mls/hr IVPB Q2H [facility] Stop: 01/10/18 19:59 Last Admin: 01/10/18 17:24 Dose: 50 mls/hr Sodium Chloride (Sodium Chloride 0.9%) 1,000 mls @ 100 mls/hr IV .Q10H [facility] Last Admin: 01/10/18 17:27 Dose: 100 mls/hr Ondansetron HCl (Zofran Inj) 4 mg IVP 0500,1100,1700,2300 PRN PRN Reason: Nausea/Vomiting Last Admin: 01/10/18 17:26 Dose: 4 mg Pantoprazole Sodium (Protonix Inj) 20 mg IVP 0500,1100,1700 [facility] Last Admin: 01/10/18 17:26 Dose: 20 mg Pantoprazole Sodium (Protonix Inj) 40 mg IVP DAILY [facility] Pyridostigmine [place] (Mestinon Tab) 60 mg PO 0500,1100,1700 [facility] Last Admin: 01/10/18 17:35 Dose: 60 mg Physical Exam - Constitutional Appears: In Acute Distress, Chronically Ill Additional comments: On BiPAP but can answer questions. - Head Exam Head Exam: ATRAUMATIC, NORMOCEPHALIC - Eye Exam Eye Exam: EOMI, PERRL Pupil Exam: NORMAL ACCOMODATION, PERRL - ENT Exam ENT Exam: Mucous Membranes Moist, Normal External Ear Exam, TM's Normal Bilaterally - Neck Exam Additional comments: soft, supple. - Respiratory Exam Respiratory Exam: Decreased Breath Sounds, Respiratory Distress. absent: Rales , Rhonchi, Wheezes - Cardiovascular Exam Cardiovascular Exam: REGULAR RHYTHM, +S1, +S2 - GI/Abdominal Exam GI & Abdominal Exam: Normal Bowel Sounds, Soft. absent: Distended, Tenderness - Extremities Exam Extremities exam: Positive for: pedal pulses present. Negative for: joint swelling, pedal edema - Neurological Exam Neurological exam: Alert, CN II-XII Intact, Oriented x3 Additional comments: weakness - Psychiatric Exam Psychiatric exam: Normal Affect, Normal Mood - Skin Skin Exam: Intact, Normal Color Results - Vital Signs Recent Vital Signs: Last Vital Signs Temp 98 F 01/10/18 13:09 Pulse 80 01/10/18 18:00 Resp 21 01/10/18 18:00 BP 124/69 01/10/18 18:00 Pulse Ox 100 01/10/18 18:00 - Labs Result Diagrams: 01/10/18 08:32 01/10/18 08:32 Labs: Laboratory Results - last 24 hr 01/10/18 01/10/18 01/10/18 09:25 12:01 12:15 pCO2 pO2 161 H HCO3 ABG pH ABG Total CO2 ABG O2 Saturation ABG Base Excess ABG Potassium VBG pH 7.34 VBG pCO2 39.0 L VBG HCO3 21.0 VBG Total CO2 22.2 VBG O2 Sat (Calc) 99.8 H VBG Base Excess -4.4 L VBG Potassium 4.0 Sodium 142.0 Chloride 114.0 H Glucose 134 H Lactate 1.3 FiO2 21.0 Pressure Support Inspiratory BiPAP Troponin I 0.01 Triglycerides Cholesterol LDL Cholesterol Direct HDL Cholesterol Arterial Blood Potassium Venous Blood Potassium 4.0 Urine Color Yellow Urine Appearance Clear Urine pH 6.0 Ur Specific [place] 1.025 Urine Protein 100 H Urine Glucose (UA) Negative Urine Ketones Negative Urine Blood Trace-lysed H Urine Nitrate Negative Urine Bilirubin Negative Urine Urobilinogen 0.2 Ur Leukocyte Esterase Negative Urine RBC 0 - 2 Urine WBC 0 - 2 Ur Epithelial Cells 1 - 3 Urine Bacteria Few 01/10/18 01/10/18 12:30 15:10 pCO2 38 pO2 102.0 H HCO3 21.0 ABG pH 7.35 ABG Total CO2 22.2 ABG O2 Saturation 99.4 H ABG Base Excess -4.2 L ABG Potassium 3.3 L VBG pH VBG pCO2 VBG HCO3 VBG Total CO2 VBG O2 Sat (Calc) VBG Base Excess VBG Potassium Sodium 140.0 Chloride 115.0 H Glucose 161 H Lactate 1.3 FiO2 40.0 Pressure Support 7 Inspiratory BiPAP 12 Troponin I Triglycerides 220 H Cholesterol 227 H LDL Cholesterol Direct 115 HDL Cholesterol 42 Arterial Blood Potassium 3.3 L Venous Blood Potassium Urine Color Urine Appearance Urine pH Ur Specific [place] Urine Protein Urine Glucose (UA) Urine Ketones Urine Blood Urine Nitrate Urine Bilirubin Urine Urobilinogen Ur Leukocyte Esterase Urine RBC Urine WBC Ur Epithelial Cells Urine Bacteria Assessment & Plan - Assessment and Plan (Free Text) Assessment: 47 yo female with SOB and dyspnea occuring when trying to stop her 4 dogs from fighting. The patient has a history of myasthenia gravis on IVIG for treatment. The patient was admitted to MICU for evaluation and monitoring. Started on meropenem but patient has a PCN allergy. Right lower lobe infiltrate... questionable pneumonia. Given reaction history to PCN, I would switch to Aztreonam for now. Can continue with doxycycline. CT chest pending. Continue Bendaryl and solumedrol. Rash on chest around scar area... rash not present before hospitalization. The rash can be secondary to Meropenem or IVIG. Supportive care. Thank you for allowing me to participate in the care of the patient, we will follow with you.
--- NOTE | 2018-01-10 20:45 | CON ---
DATE: 01/10/2018 NEUROLOGY CONSULTATION CHIEF COMPLAINT: Myasthenia gravis. HISTORY OF PRESENT ILLNESS: This is a 47-year-old woman with a history of thymoma status post thymectomy, with history of myasthenia gravis, had a thymectomy in 10/2017, developed myasthenic crisis in 11/2017 and was admitted to [facility] ICU with recurrent pleural effusions requiring intubation, thoracocentesis and IVIG. She was discharged 3 weeks ago, and was seeing Dr. Garibay, her neurologist, and was placed on IVIG, and her last dose being 2 to 3 weeks ago. She also has a CPAP that she uses at home. In October, she underwent a thymectomy by Dr. Hunt at [facility]; since then, she required thoracocentesis in November; she has only had worsening shortness of breath, after which she had IVIG session and was transferred from Dr. Garibay's office to [facility] ICU for myasthenic crisis requiring intubation, thoracocentesis and IVIG for recurrent pleural effusion, which she had a total of 5 thoracocentesis, and her pleural fluid showed positive for thymoma cells which was biopsied on 12/12/2017, with a history of elevated acetylcholine receptor blocking antibodies of 68, acetylcholine receptor binding antibodies of 25, and acetylcholine receptor modulating antibodies of 91 which are elevated, which was done on 12/10/2017, who comes in for worsening shortness of breath, head drop, diplopia and ptosis of the left eye. She mentions that she gets stable a day and a half after receiving doses of IVIG, but since she gets IVIG, she gets slightly weaker, then gets improved for a few days to 1 to 2 weeks, and then gets worse again. Plasmapheresis has not been tried. She is apparently on methadone 60 mg p.o. t.i.d. and 180 mg at bedtime. In addition, she gets prednisone 50 mg every other day, which is given by Dr. Garibay. Apparently she had underwent a CT of the chest, which showed some elevation of right hemidiaphragm, small right effusion and some mild atelectasis of the right lung base and questionable right side infiltrate. Currently she is undergoing one stat dose of 1 g of IVIG x1 day to see if there is improvement in her diplopia and head dropping. She is on BiPAP currently at bedside. She has ptosis but is able to fixate and stare for more than 20 seconds, when looking upwards, she does have a head drop and weakness of her platysmal muscle. Her proximal muscle weakness in her legs are intact. PAST MEDICAL HISTORY: As above. SOCIAL HISTORY: No illicit drug use, smoking or ETOH abuse. ALLERGIES: CEPHALEXIN, CODEINE AND IV IODINE CONTAINING PRODUCTS. REVIEW OF SYSTEMS: A 14-point review of systems is negative except as per the HPI. FAMILY HISTORY: Noncontributory. MEDICATIONS: Reviewed by nurse per reconciliation sheet. PHYSICAL EXAMINATION: GENERAL: Patient is sitting up in bed, in no acute distress. VITAL SIGNS: Temperature 98, pulse rate 79, blood pressure 126/81, respiratory rate of 26, FiO2 is 99 by BiPAP. HEENT: Head is atraumatic and normocephalic. PERRLA. Has a mild left side ptosis. NECK: Supple. No JVD. No adenopathy noted. LUNGS: Decreased breath sounds bilaterally. HEART: S1 and S2. Normal rate and rhythm. No murmur, rubs, or gallops. ABDOMEN: Soft, nontender, and nondistended. Bowel sounds present. EXTREMITIES: No clubbing. No cyanosis. Peripheral pulses 2+ felt bilaterally. NEUROLOGIC: Patient is alert and oriented to person place, month and year. Speech is fluent without any errors. Cranial nerves II through XII intact. Has left side ptosis, has difficulty to count to 21 has proximal weakness of her upper extremities; in addition, has head dropping with weakness of the platysma. Otherwise moves all extremities equally. No pronator drift seen. Sensory, light touch, pinprick, proprioception, and vibration are intact. DTRs are 2+ throughout. Coordination, [id number] intact. No dysmetria noted. LABORATORY DATA: Sodium 144, potassium 3.7, chloride 113, carbon dioxide 21, BUN of 14, creatinine 0.8. Random glucose of 107. ASSESSMENT AND PLAN: This is a 47-year-old woman with history of myasthenia gravis, status post thymoma, status post thymectomy, status post recurrent pleural effusions with myasthenic crisis in 11/2017 after intravenous immunoglobulin, was admitted in [facility] requiring intensive care unit intubation and 5 thoracocentesis and intravenous immunoglobulin. She was discharged 3 weeks ago, and had been placed on prednisone 50 mg p.o. every other day in addition to her intravenous immunoglobulin 1 g for 2 days every 3 weeks, in addition to methadone 60 mg p.o. t.i.d. and 180 mg p.o. at bedtime. She came for worsening dyspnea on exertion, extreme fatigue and diplopia and head dropping, and felt some mild dysphagia, therefore was brought in for myasthenia exacerbation. Chest x-ray initially showed some right lower lobe infiltrate and right small pleural effusion, which is similar to what was seen on the CAT scan of the chest. Apparently at this time, I recommend; 1. For myasthenia exacerbation, intensive care unit monitoring, monitor forced vital capacity, negative inspiratory force, peak flows 4 times a day, and suction as needed to help with . 2. Continue with bilevel positive airway pressure for now, intubation if needed if vital capacity forced flow is 15 to 20 mL per kilogram and if negative inspiratory force is less than negative 25 to negative 30 cm per water. At this time, we will also continue pyridostigmine immediate release 60 mg t.i.d. and extended release of 180 at night. At this time, give one stat dose of 1 g/kg of IVIG x1 dose and see if there is any improvement. In addition, she has had multiple effusions with IVIG in the past; we should consider plasmapheresis and get a Nephrology consult to initiate possible plasmapheresis tomorrow, and recommend also Oncology consult with Dr. Cyr in regards to history of thymoma and pleural fluid. At this time, continue with respiratory therapy and avoid certain antibiotics in terms of macrolides as well as penicillin in a patient with myasthenia, continue meropenem and doxycycline for now, and continue her current present medical management. Thank you for the consult. Rito Cardozo MD
[2018-01-10] MEDS ORDERED: PYRIDOSTIGMINE 180 MG PO SCH ×3 (22:00→23:00)
[2018-01-10] MEDS: Aztreonam 1 Gm in NS 100mL 100 ML IVPB SCH (22:07)
[2018-01-11] MEDS: Aztreonam 1 Gm in NS 100mL 100 ML IVPB SCH ×3 (05:11→21:38)
[2018-01-11] MEDS: Sodium Chloride 0.9% 1,000 ML IV SCH (05:15)
[2018-01-11 06:02] LABS: BASO # 0.01 K/mm3 (0.0-2.0); BASO % 0.1 % (0.0-3.0); GRAN # 10.62 (1.4-6.5); GRAN % 85.1 % (50.0-68.0); HEMOGLOBIN 9.7 g/dL (12.0-16.0); LYMPH # 1.2 (1.2-3.4); LYMPH % 9.8 % (22.0-35.0); MEAN CELL VOLUME 89.2 fl (80.0-105.0); MEAN CORPUSCULAR HEMOGLOBIN 29.9 pg (25.0-35.0); MEAN CORPUSCULAR HGB CONC 33.6 g/dl (31.0-37.0); MEAN PLATELET VOLUME 8.5 fl (7.0-11.0); MONO # 0.6 (0.1-0.6); RBC 3.24 10^6/uL (3.5-6.1); RED CELL DISTRIBUTION WIDTH 18.2 % (11.5-14.5); WHITE BLOOD COUNT 12.5 10^3/ul (4.5-11.0)
[2018-01-11 06:08] LABS: ALB/GLOB RATIO 0.7 (1.1-1.8); ALBUMIN 3.4 g/dL (3.0-4.8); ALT/SGPT 28 U/L (7-56); AST/SGOT 37 U/L (14-36); BLOOD UREA NITROGEN 11 mg/dL (7-21); CALCIUM 8.9 mg/dL (8.4-10.5); GFR AFRICAN-AMERICAN > 60; GFR NON-AFRICAN AMERICAN > 60
[2018-01-11 06:18] LABS: FREE T4 0.96 ng/dL (0.78-2.19)
[2018-01-11] MEDS: Albuterol 0.083% Inhal Sol (2.5 mg/3 mL) UD IH SCH ×4 (08:13→19:10)
[2018-01-11] MEDS ORDERED: PYRIDOSTIGMINE 180 MG PO SCH ×2 (10:00)
[2018-01-11] MEDS ORDERED: IMMUNE GLOBULIN IV ONE (11:25)
[2018-01-11] MEDS ORDERED: PREMIXED IV ONE (11:25)
[2018-01-11] MEDS: DiphenhydrAMINE 50 mg/ml Inj IVP PRN (11:55)
--- NOTE | 2018-01-11 12:36 | CP.PCM.PN ---
<Peewee Baxter - Last Filed: 01/11/18 12:25> Subjective - Date & Time of Evaluation Date of Evaluation: 01/11/18 Time of Evaluation: 07:00 - Subjective Subjective: PGY1 Medicine Note for Dr. Lama Patient seen and examined at bedside in the ICU this morning. Patient is currently resting comfortably in bed. She currently has energy and is resting comfortably on nasal cannula but reports shortness of breath if she talks. "I feel like I just ran a marathon just by talking." Patient is very aware of her disease and knows the symptoms that she needs to be aware about. She still is tiring out very fast with any little bit of movement but was able to successfully come off of bipap last night. She has no complaints at this time. Denies fevers, chills, nausea, vomiting, diarrhea, constipation, chest pain or abdominal pain. Objective - Vital Signs/Intake and Output Vital Signs (last 24 hours): Temp Pulse Resp BP Pulse Ox 98.2 F 87 22 125/84 96 01/11/18 04:00 01/11/18 11:28 01/11/18 11:27 01/11/18 11:00 01/11/18 11:00 Intake and Output: 01/11/18 01/11/18 06:59 18:59 Intake Total 1750 Output Total 1100 Balance 650 - Medications Medications: Current Medications Acetaminophen (Tylenol 325mg Tab) 650 mg PO Q6H PRN PRN Reason: Pain, Mild (1-3) Last Admin: 01/11/18 11:54 Dose: 650 mg Albuterol Sulfate (Albuterol 0.083% Inhal Sanjuana (2.5 Mg/3 Ml) Ud) 2.5 mg IH TID [facility] Last Admin: 01/11/18 09:00 Dose: Not Given Diphenhydramine HCl (Benadryl) 50 mg IVP Q4H PRN PRN Reason: Allergy symptoms Last Admin: 01/11/18 11:55 Dose: 50 mg Heparin Sodium (Porcine) (Heparin) 5,000 units SC Q8 ANNIE PRN Reason: Protocol Last Admin: 01/11/18 05:13 Dose: 5,000 units Home Med (Home Med) 1 unit PO 2300 [facility] Doxycycline Hyclate 100 mg/ (Sodium Chloride) 100 mls @ 100 mls/hr IV Q12 [facility] Last Admin: 01/11/18 09:46 Dose: 100 mls/hr Sodium Chloride (Sodium Chloride 0.9%) 1,000 mls @ 100 mls/hr IV .Q10H [facility] Last Admin: 01/11/18 05:15 Dose: 100 mls/hr Aztreonam (Azactam 1 Gm) 100 mls @ 100 mls/hr IVPB Q8 ANNIE PRN Reason: Protocol Last Admin: 01/11/18 05:11 Dose: 100 mls/hr Methylprednisolone (Solu-Medrol) 60 mg IVP Q12 [facility] Last Admin: 01/11/18 09:46 Dose: 60 mg Ondansetron HCl (Zofran Inj) 4 mg IVP 0500,1100,1700,2300 PRN PRN Reason: Nausea/Vomiting Last Admin: 01/11/18 10:56 Dose: 4 mg Pantoprazole Sodium (Protonix Inj) 20 mg IVP 0500,1100,1700 [facility] Last Admin: 01/11/18 10:56 Dose: 20 mg Pantoprazole Sodium (Protonix Inj) 40 mg IVP Q24H [facility] Pyridostigmine Blakeslee (Mestinon Tab) 60 mg PO 0500,1100,1700 [facility] Last Admin: 01/11/18 10:54 Dose: 60 mg - Labs Labs: 01/11/18 05:00 01/11/18 05:00 PT 11.1 SECONDS (9.4-12.5) 01/10/18 08:32 INR 0.97 (0.93-1.08) 01/10/18 08:32 APTT 18.5 Seconds (25.1-36.5) L 01/10/18 08:32 - Constitutional Appears: No Acute Distress - Head Exam Head Exam: ATRAUMATIC, NORMOCEPHALIC - Eye Exam Eye Exam: Normal appearance - ENT Exam ENT Exam: Mucous Membranes Moist - Neck Exam Neck Exam: absent: Lymphadenopathy - Respiratory Exam Respiratory Exam: Decreased Breath Sounds (right base). absent: Accessory Muscle Use, Rales, Rhonchi, Wheezes Additional comments: patient becomes short of breath with movement or long stretches of speaking. otherwise resting comfortably on NC. - Cardiovascular Exam Cardiovascular Exam: REGULAR RHYTHM, +S1, +S2 - GI/Abdominal Exam GI & Abdominal Exam: Soft. 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 She was discharged 3 weeks ago, not on the prednisone 60mg that she was discharged with due to side effect of edema. Last IVIG infusion was 2 weeks ago. Today, pt has worsening dyspneic on exertion and extreme fatique. She had chronic chest tightness from pleural effusion but the chest tightness was worsened. Diplopia, motor weakness, paresthsia, dysphagia all worsened today. She is likely having a myasthenia gravis exacerbation. In the ED, FVC is 700cc ( 13 ml/kg). NIF is negative 30 cm H2O. CXR showed R lower lobe infiltreate and R pleural effusion, unchanged. Plan: Myasthenia gravis exacerbation - Admit to ICU - Monitor FVC, NIF, Peak flow, QID (Per ICU) - suction as needed due to reduce strength of cough - BIPAP prn; intubation as needed VC falls below 15 to 20 mL/kg MIP is less negative than -25 to -30 cmH20 (ie, between 0 and -30 cmH20) - Pyridostigmine IR @ 0500, 1100, 1700; Pyridostigmine ER @ 2300 * Discussed with nurses the importance of these medications given on time. Patient reports temporary paralysis if there is a delay in medication administration while at home. Patient is very aware of her condition and is very consistent with her medications. - started on solumedrol 60mg IVP q8h - low threshold to intubate - aspiration precaution - Neuro and Heme on board; Defer decision to (1) plasmapheresis, (2) steroid to heme/neuro - PT, OT, ST Chest pressure likely from R lower lobe infiltrate and R pleural effusion - Trops neg x 2 - Hgb A1C 4.6 - TSH 0.20 - lipid panel - Tri 220/Chol 227/LDL 115/HDL42 R lower lobe infiltrate, questionable pneumonia - CXR 01/10: Right lower lobe infiltrate and right pleural effusion remain essentially unchanged accounting for differences in technique (portable examination compared to the prior two-view chest). - Chest CT w/o 01/10: Elevation of the right hemidiaphragm. Small right effusion. Minimal atelectasis at the right lung base. No evidence of pneumothorax - Albuterol 2.5 IH TID - Aztreonam 1gm IVPB q8h - Doxycyclin 100mg IVPB q12h - urine culture no growth - blood culture no growth at 24 hours - procalcitonin <0.05 - flu screen - strep Ag, mycoplasma Ag, Legionella Ag - ID consult, Dr. Shane Fermin pleural effusion - stable, no thoracentesis at this time. Prophylactic Care - Protonix, Heparin - Diet: Reg consistency, 6 small meals w/ thin liquids - aspiration precautions , per speech Case discussed with Dr. Kelby Baxter PGY1 <Raudel Lama - Last Filed: 01/11/18 17:11> Objective - Vital Signs/Intake and Output Vital Signs (last 24 hours): Temp Pulse Resp BP Pulse Ox 98.2 F 87 22 125/84 96 01/11/18 04:00 01/11/18 11:28 01/11/18 11:27 01/11/18 11:00 01/11/18 11:00 Intake and Output: 01/11/18 01/11/18 06:59 18:59 Intake Total 1750 Output Total 1100 Balance 650 - Medications Medications: Current Medications Acetaminophen (Tylenol 325mg Tab) 650 mg PO Q6H PRN PRN Reason: Pain, Mild (1-3) Last Admin: 01/11/18 11:54 Dose: 650 mg Albuterol Sulfate (Albuterol 0.083% Inhal Sanjuana (2.5 Mg/3 Ml) Ud) 2.5 mg IH TID [facility] Last Admin: 01/11/18 13:20 Dose: 2.5 mg Diphenhydramine HCl (Benadryl) 50 mg IVP Q4H PRN PRN Reason: Allergy symptoms Last Admin: 01/11/18 11:55 Dose: 50 mg Heparin Sodium (Porcine) (Heparin) 5,000 units SC Q8 ANNIE PRN Reason: Protocol Last Admin: 01/11/18 14:00 Dose: 5,000 units Home Med (Home Med) 1 unit PO 2300 [facility] Doxycycline Hyclate 100 mg/ (Sodium Chloride) 100 mls @ 100 mls/hr IV Q12 [facility] Last Admin: 01/11/18 09:46 Dose: 100 mls/hr Sodium Chloride (Sodium Chloride 0.9%) 1,000 mls @ 100 mls/hr IV .Q10H [facility] Last Admin: 01/11/18 05:15 Dose: 100 mls/hr Aztreonam (Azactam 1 Gm) 100 mls @ 100 mls/hr IVPB Q8 ANNIE PRN Reason: Protocol Last Admin: 01/11/18 13:59 Dose: 100 mls/hr Methylprednisolone (Solu-Medrol) 60 mg IVP Q12 [facility] Last Admin: 01/11/18 09:46 Dose: 60 mg Ondansetron HCl (Zofran Inj) 4 mg IVP 0500,1100,1700,2300 PRN PRN Reason: Nausea/Vomiting Last Admin: 01/11/18 10:56 Dose: 4 mg Pantoprazole Sodium (Protonix Inj) 20 mg IVP 0500,1100,1700 [facility] Last Admin: 01/11/18 10:56 Dose: 20 mg Pantoprazole Sodium (Protonix Inj) 40 mg IVP Q24H [facility] Pyridostigmine Blakeslee (Mestinon Tab) 60 mg PO 0500,1100,1700 [facility] Last Admin: 01/11/18 10:54 Dose: 60 mg - Labs Labs: 01/11/18 05:00 01/11/18 05:00 PT 11.1 SECONDS (9.4-12.5) 01/10/18 08:32 INR 0.97 (0.93-1.08) 01/10/18 08:32 APTT 18.5 Seconds (25.1-36.5) L 01/10/18 08:32 Attending/Attestation - Attestation I have personally seen and examined this patient.: Yes I have fully participated in the care of the patient.: Yes I have reviewed all pertinent clinical information, including history, physical exam and plan: Yes Notes (Text): 01/11/18 17:01 attending note; Patient seen and examined with resident in ICU. patient is on oxygen nasal cannula. Still complaining of some shortness of breath on exertion and moving around. Patient is a 47 -year-old female with the recent diagnosis of thymoma & myasthenia gravis s/p thymectomy , myasthenia crisis in November 2017 ,previous intubation is admitted for worsening of dyspnea. Acute myasthenia crisis. Monitor tidal volume and an NIP. currently on IV Steroid. second dose of IVIG ordered today. case discussed with neurology Dr. Cardozo in detail. Continue Mestinon/ home dose. Right-sided pleural effusion; CT scan showed small effusion as before. ID evaluation appreciated. Currently on IV Azactam and doxycycline. Cultures are negative so far. Status post thymoma resection. Recent thoracentesis showed thymoma cells. oncology evaluation appreciated. Monitor patient closely in ICU. Dr. Hunt informed by medical advisor yesterday. Case discussed with PMD Dr. Santos in detail.
--- NOTE | 2018-01-11 13:10 | PN ---
DATE: 01/11/2018 NEUROLOGY FOLLOWUP CHIEF COMPLAINT: Follow up for myasthenia gravis. SUBJECTIVE: The patient is seen and examined at bedside, no longer having a head bobbing. Ptosis of the left eye is much better. She is able to chew and swallow her food and very minimal proximal muscle weakness. Much more like of a 360 change from her initial presentation. She is doing much better. She will get one more gram per kilogram of IVIG today, slowly infuse and if does better, she will go home tomorrow. No need for plasmapheresis at this time. PAST MEDICAL HISTORY: History of myasthenia gravis, status post thymectomy. REVIEW OF SYSTEMS: Fourteen-point review of systems negative except as per the HPI. SOCIAL HISTORY: No illicit drug use, smoking or EtOH abuse. ALLERGIES: NOTED TO CEPHALEXIN, CODEINE IV CONTAINING PRODUCTS. FAMILY HISTORY: Noncontributory. MEDICATIONS: Reviewed by nurse reconciliation sheet. PHYSICAL EXAMINATION: VITAL SIGNS: Afebrile, pulse rate of 77, blood pressure 125/84, respiratory rate of 20. GENERAL: The patient is sitting up in bed, no acute distress. HEENT: Atraumatic, normocephalic. PERRLA. Extraocular muscles intact. NECK: Supple. No JVD. No adenopathy noted. LUNGS: Clear to auscultation. No adventitious sounds. HEART: S1, S2. Normal rate and rhythm. No murmurs, rubs or gallops. ABDOMEN: Soft, nontender and nondistended. Bowel sounds are present. EXTREMITIES: No clubbing. No cyanosis. Peripheral pulses 2+ felt bilaterally. NEUROLOGIC: The patient is alert and oriented to person, place, month and year. Speech is fluent without any errors. Cranial nerves II through XII intact. There is minimal left-sided ptosis, which is much better than prior. No longer head dropping. Very slight weakness of the platysma. Moves all extremities equally. No proximal muscle weakness in the extremities seen. Sensory exam: Light touch, pinprick, proprioception and vibration are intact. DTRs are 2+ throughout. Coordination: [id number] intact. No dysmetria noted. Gait is deferred for now. LABORATORY DATA: Sodium 142, potassium 4.2, chloride of 116, carbon dioxide 22, BUN of 11, creatinine 0.7, random glucose of 137. ASSESSMENT AND PLAN: 1. This is a 47-year-old woman with past medical history of myasthenia gravis, status post thymoma, status post thymectomy, status post recurrent pleural effusions with myasthenia crisis in 11/2017 intravenous immunoglobulin, was admitted to the [facility], intubated and 5 thoracocentesis and intravenous immunoglobulin was given. She was discharged 3 weeks ago and was placed on prednisone 50 mg p.o. every other day in addition to intravenous immunoglobulin 1 g/kg for 2 days every 3 weeks, in addition to Mestinon 60 mg t.i.d. and 180 mg at bedtime extended release. She came in for worsening shortness of breath on exertion, extreme fatigue, diplopia and head dropping and is now status post myasthenia exacerbation. She is doing much better today after one dose of 1 g/kg of intravenous immunoglobulin. At this time, we will recommend to continue with one more gram per kilogram of intravenous immunoglobulin and hold plasmapheresis for now. If she is doing better tomorrow, she could be discharged home tomorrow. Continue with her current doses of Mestinon as well as prednisone. Thank you for this followup. Rito Cardozo MD
--- NOTE | 2018-01-11 14:06 | PN ---
DATE: 01/11/2018 LEAN COACH NOTE LOCATION: At [facility]. SUBJECTIVE: The patient is awake and alert, speaking in full sentences at this particular point. She is on O2 support with nasal cannula, but when feeling weak, we do to have the BiPAP at her bedside. She is recently taking her pyridostigmine and she feels a little stronger to speak and move around once that medication is given. The patient has no complaints of chest pain this morning, but continues to have some mild shortness of breath with exertion. No significant cough or wheezing. No present fever, chills or nausea or vomiting. She does state that she is a little hungry and would like to try some soft or pureed food. PHYSICAL EXAMINATION: VITAL SIGNS: Physical exam note that her temperature is 98.2, her pulse is 60, respirations are 18 and BP is 138/47. SKIN: Warm and dry. HEENT: Head atraumatic, normocephalic. Eyes seemed to be reactive to light. Ear, nose and throat seemed to be within normal limits. NECK: Supple. No JVD. No thyroid enlargement. No lymph nodes. HEART: Regular rate and rhythm. Normal S1, S2. LUNGS: Reveal slight decreased breath sounds at the bases. ABDOMEN: Soft. Decreased bowel sounds. GENITALIA AND RECTAL: Deferred. MUSCULOSKELETAL: No joint deformities. EXTREMITIES: Reveal trace lower extremity edema. NEUROLOGICAL: No significant change. LABORATORY DATA: As far as her laboratories are concerned, her white count is 12.5, hemoglobin is 9.7 and hematocrit 28.9 with platelets of 459,000. Her sodium is 142, potassium 4.2, chloride 116, CO2 of 22 with a BUN of 11, creatinine of 0.7 and a glucose of 137. CT of the chest reveals that there is elevation of the right hemidiaphragm, small right pleural effusion and minimal atelectasis at the right lung base. IMPRESSION: As far as my impression, this patient has myasthenia gravis, presented in crisis, has a history of thymoma and a thymectomy. The patient has right lower lobe atelectasis and pleural effusion. PLAN: As far as our plan, we will continue to monitor closely from a respiratory status using BiPAP when needed. We will continue with her IVIG as well as pyridostigmine. The patient is getting albumin as a bronchodilator, aztreonam as well as Benadryl p.r.n. She is getting doxycycline as well as heparin subcu. The patient will continue on her Protonix, Solu-Medrol and Zofran for any nauseousness. We will continue to follow closely and treat aggressively along with the other consultants and the primary care doctor. Douglas Carbajal MD
--- NOTE | 2018-01-11 16:24 | CP.PCM.PN ---
Subjective - Date & Time of Evaluation Date of Evaluation: 01/11/18 Time of Evaluation: 15:45 - Subjective Subjective: Infectious Disease Follow Up: January 11, 2018 47 yo female with recent thymoma surgery and myasthenia gravis with myasthenia crisis in November 2017. SOB. On IVIG for myasthenia gravis treatment. The patient was trying to stop her 4 dogs from fighting and became dyspneic and fatigued. The patient was admitted to the MICU. The patient has PCN allergies that lead to rash, swelling, and closing of the throat. She is currently on nasal cannula. The patient was on BiPAP yesterday but was able to be weaned off last night. The patient is still overall weak and becomes SOB with light exertion and even on speaking. Objective - Vital Signs/Intake and Output Vital Signs (last 24 hours): Temp Pulse Resp BP Pulse Ox 98.2 F 87 22 125/84 96 01/11/18 04:00 01/11/18 11:28 01/11/18 11:27 01/11/18 11:00 01/11/18 11:00 Intake and Output: 01/11/18 01/11/18 06:59 18:59 Intake Total 1750 Output Total 1100 Balance 650 - Medications Medications: Current Medications Acetaminophen (Tylenol 325mg Tab) 650 mg PO Q6H PRN PRN Reason: Pain, Mild (1-3) Last Admin: 01/11/18 11:54 Dose: 650 mg Albuterol Sulfate (Albuterol 0.083% Inhal Sanjuana (2.5 Mg/3 Ml) Ud) 2.5 mg IH TID ANNIE Last Admin: 01/11/18 13:20 Dose: 2.5 mg Diphenhydramine HCl (Benadryl) 50 mg IVP Q4H PRN PRN Reason: Allergy symptoms Last Admin: 01/11/18 11:55 Dose: 50 mg Heparin Sodium (Porcine) (Heparin) 5,000 units SC Q8 ANNIE PRN Reason: Protocol Last Admin: 01/11/18 14:00 Dose: 5,000 units Home Med (Home Med) 1 unit PO 2300 [facility] Doxycycline Hyclate 100 mg/ (Sodium Chloride) 100 mls @ 100 mls/hr IV Q12 ANNIE Last Admin: 01/11/18 09:46 Dose: 100 mls/hr Sodium Chloride (Sodium Chloride 0.9%) 1,000 mls @ 100 mls/hr IV .Q10H [facility] Last Admin: 01/11/18 05:15 Dose: 100 mls/hr Aztreonam (Azactam 1 Gm) 100 mls @ 100 mls/hr IVPB Q8 ANNIE PRN Reason: Protocol Last Admin: 01/11/18 13:59 Dose: 100 mls/hr Methylprednisolone (Solu-Medrol) 60 mg IVP Q12 [facility] Last Admin: 01/11/18 09:46 Dose: 60 mg Ondansetron HCl (Zofran Inj) 4 mg IVP 0500,1100,1700,2300 PRN PRN Reason: Nausea/Vomiting Last Admin: 01/11/18 10:56 Dose: 4 mg Pantoprazole Sodium (Protonix Inj) 20 mg IVP 0500,1100,1700 [facility] Last Admin: 01/11/18 10:56 Dose: 20 mg Pantoprazole Sodium (Protonix Inj) 40 mg IVP Q24H [facility] Pyridostigmine Niles (Mestinon Tab) 60 mg PO 0500,1100,1700 [facility] Last Admin: 01/11/18 10:54 Dose: 60 mg - Labs Labs: 01/11/18 05:00 01/11/18 05:00 PT 11.1 SECONDS (9.4-12.5) 01/10/18 08:32 INR 0.97 (0.93-1.08) 01/10/18 08:32 APTT 18.5 Seconds (25.1-36.5) L 01/10/18 08:32 - Constitutional Appears: Non-toxic, No Acute Distress, Chronically Ill - Head Exam Head Exam: ATRAUMATIC, NORMOCEPHALIC - Eye Exam Eye Exam: EOMI, PERRL Pupil Exam: NORMAL ACCOMODATION, PERRL - ENT Exam ENT Exam: Mucous Membranes Moist, Normal External Ear Exam, TM's Normal Bilaterally - Neck Exam Neck Exam: Full ROM, Normal Inspection - Respiratory Exam Respiratory Exam: Decreased Breath Sounds, Respiratory Distress. absent: Rales , Rhonchi, Wheezes - Cardiovascular Exam Cardiovascular Exam: REGULAR RHYTHM, RRR, +S1, +S2 - GI/Abdominal Exam GI & Abdominal Exam: Soft, Normal Bowel Sounds. absent: Distended, Tenderness - Extremities Exam Extremities Exam: Normal Capillary Refill. absent: Joint Swelling, Pedal Edema - Neurological Exam Neurological Exam: Alert, Awake, CN II-XII Intact, Oriented x3 - Psychiatric Exam Psychiatric exam: Normal Affect, Normal Mood - Skin Skin Exam: Intact, Normal Color Assessment and Plan - Assessment and Plan (Free Text) Assessment: 47 yo female with SOB and dyspnea occuring when trying to stop her 4 dogs from fighting. The patient has a history of myasthenia gravis on IVIG for treatment. The patient was admitted to MICU for evaluation and monitoring. Started on meropenem but patient has a PCN allergy. Right lower lobe infiltrate... questionable pneumonia. Given reaction history to PCN, I would switch to Aztreonam for now. Can continue with doxycycline. CT chest pending. Continue Bendaryl and solumedrol. Rash on chest around scar area... rash not present before hospitalization. The rash can be secondary to Meropenem or IVIG. Continue on Aztreonam. Off of BiPAP now and on Nasal Canula. Still SOB on light exertion. Supportive care. Thank you for allowing me to participate in the care of the patient, we will follow with you.
[2018-01-11] MEDS: PYRIDOSTIGMINE 180 MG PO SCH (22:58)
[2018-01-11] MEDS ORDERED: Home Med 1 UNIT PO SCH (23:00)
[2018-01-12 02:15] LABS: BASO # 0.02 K/mm3 (0.0-2.0); BASO % 0.1 % (0.0-3.0); GRAN % 89.3 % (50.0-68.0); HEMOGLOBIN 9.5 g/dL (12.0-16.0); LYMPH % 7.5 % (22.0-35.0); MEAN CELL VOLUME 92.4 fl (80.0-105.0); MEAN CORPUSCULAR HEMOGLOBIN 30.2 pg (25.0-35.0); MEAN CORPUSCULAR HGB CONC 32.6 g/dl (31.0-37.0); MEAN PLATELET VOLUME 8.7 fl (7.0-11.0); MONO # 0.4 (0.1-0.6); MONO % 3.1 % (1.0-6.0); RBC 3.15 10^6/uL (3.5-6.1); RED CELL DISTRIBUTION WIDTH 19.3 % (11.5-14.5); WHITE BLOOD COUNT 13.5 10^3/ul (4.5-11.0)
[2018-01-12 02:35] LABS: B-TYPE NATRIURETIC PEPTIDE 730 pg/mL (0-450); TROPONIN I < 0.01 ng/mL
[2018-01-12 02:52] LABS: ALB/GLOB RATIO 0.7 (1.1-1.8); ALBUMIN 3.6 g/dL (3.0-4.8); ALT/SGPT 68 U/L (7-56); AST/SGOT 95 U/L (14-36); BLOOD UREA NITROGEN 17 mg/dL (7-21); CALCIUM 8.4 mg/dL (8.4-10.5); GFR AFRICAN-AMERICAN > 60; GFR NON-AFRICAN AMERICAN > 60
[2018-01-12] MEDS: Aztreonam 1 Gm in NS 100mL 100 ML IVPB SCH ×3 (05:24→21:04)
[2018-01-12 05:28] LABS: ARTERIAL BLOOD GAS HCO3 25.4 mmol/L (21-28); ARTERIAL BLOOD GAS HEMOGLOBIN 10.1 g/dL (11.7-17.4); ARTERIAL BLOOD GAS O2 CAPACITY 13.9 mL/dl (16-24); ARTERIAL BLOOD GAS O2 CONTENT 13.9 ML/dl (15-23); ARTERIAL BLOOD GAS O2 SAT 99.8 % (95-98); ARTERIAL BLOOD GAS PCO2 42 mm/Hg (35-45); ARTERIAL BLOOD GAS PH 7.39 (7.35-7.45); ARTERIAL BLOOD GAS TCO2 26.7 mmol.L (22-28)
[2018-01-12 06:10] LABS: BASO # 0.01 K/mm3 (0.0-2.0); BASO % 0.1 % (0.0-3.0); GRAN # 11.75 (1.4-6.5); GRAN % 90.9 % (50.0-68.0); HEMOGLOBIN 9.9 g/dL (12.0-16.0); LYMPH # 0.9 (1.2-3.4); LYMPH % 6.6 % (22.0-35.0); MEAN CELL VOLUME 91.8 fl (80.0-105.0); MEAN CORPUSCULAR HEMOGLOBIN 29.9 pg (25.0-35.0); MEAN CORPUSCULAR HGB CONC 32.6 g/dl (31.0-37.0); MONO # 0.3 (0.1-0.6); MONO % 2.4 % (1.0-6.0); PLATELET COUNT 427 10^3/uL (120.0-450.0); RBC 3.31 10^6/uL (3.5-6.1); WHITE BLOOD COUNT 12.9 10^3/ul (4.5-11.0)
[2018-01-12 06:11] LABS: ALB/GLOB RATIO 0.7 (1.1-1.8); ALBUMIN 3.7 g/dL (3.0-4.8); ALT/SGPT 73 U/L (7-56); AST/SGOT 69 U/L (14-36); BLOOD UREA NITROGEN 20 mg/dL (7-21); CALCIUM 8.7 mg/dL (8.4-10.5); GFR AFRICAN-AMERICAN > 60; GFR NON-AFRICAN AMERICAN > 60
--- NOTE | 2018-01-12 07:07 | CON ---
DATE: ONCOLOGY CONSULTATION LOCATION: The patient is examined in the CCU. The patient is in room 129, bed 5. The patient was requested to be seen by us, Dr. Lama, the hospitalist, and her primary physician at this time Dr. Santos, who is a sales development consultant from [facility]. HISTORY OF PRESENT ILLNESS: The patient is admitted to the ICU for myasthenia crisis when she had a similar episode two months ago, and now today, actually yesterday after she had tried to put a stop to 4 dogs fighting, in the process became dyspneic and extremely fatigued. She had chest tightness, which has gotten worse. She was afraid that she could go into a crisis where she would not be able to breathe. She called the paramedics and the patient was brought into the emergency room. The patient has been treated with both long and short-acting pyridostigmine, and has been started on IV Solu-Medrol and has also been in the process of getting one dose of high-dose IV gamma globulin, which is in process. The patient has been feeling immensely better and improved since admission less than 24 hours ago. The patient tells me that her symptoms started some time in the early part of 08/2017 when she had pulsatile lymph nodes in the neck, which prompted the doctor to do an investigation. At that time, a chest x-ray showed a right upper lobe mass, following which, she subsequently went for a CAT scan of the chest. CAT scan of the chest showed a right mediastinal mass, which was greater than 10 cm, a biopsy of which was done by Dr. 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 Subsequent to that, the patient had been seen by Dr. Hunt and the patient went [place] did the surgery. The details of the surgical findings are unclear to me, but speaking to Dr. Santos, it appears that most of the gross disease was removed. The patient was able to recover post surgery and had been doing relatively well after the surgery. There was a concern that there might be some disease left behind because of the size of the lesion and the amount of disease that was noted at the time of the operative findings. The surgery was done at [facility] in [place], [place]. Since the surgery, the patient has had recurrent pleural effusions for which she has had repeated thoracocentesis. Thoracocentesis dated 12/07/2017 clearly shows thymoma cells in the pleural fluid. There is another fluid dated 01/01/2018 also shows atypical cells, very highly suggestive of thymoma involvement in the pleural fluid. So far, the patient has had at least 5 times thoracocentesis, the last one done in the ICU on 12/10/2017. The patient was in [facility] prior to the last admission to the ICU at [facility] when she was at the neurologist's office, Dr. Garibay, was getting IV gamma globulin. At the time of the gamma globulin, the patient became symptomatic with shortness of breath, was transferred to the ICU after being seen in the ER, was electively intubated. Etiology of the episode was thought to be myasthenic crisis rather than any other reactions to the gamma globulin. The patient was able to be extubated in 2 hours. She was given high dose steroids, and the patient was supposed to continue IV gamma globulin once every 3 weeks as an outpatient in the doctor's office. The patient was supposed to be seen by Dr. Hunt as an outpatient for possibly a VATS procedure, just to do a pleural-scoping to decide what would be the best approach for the patient at this point in time, to see if there is any remnant of the thymoma. This was being planned when the patient is now readmitted to [facility] with the aforementioned complaints. The patient apparently after being discharged from [facility], took the prednisone which was given as a 60 mg taper just for 1 day and stopped it or discontinued it secondary to side effects associated with the facial swelling and generalized body edema. The patient is currently in the ICU with the IV gamma globulin infusing and she is on multiple antibiotics as well to cover for possible right lower lobe infiltrates with right pleural effusion as evidenced on the chest x-ray and the CAT scan. Echo done on 12/12/2017 had shown an ejection fraction of 73% without any pericardial effusion. Subjectively, the patient is feeling better today upon examination. The patient is examined in bed. On physical examination, the patient tells me that her strength and the voice has improved. Weakness in the upper arm, especially in the shoulders, has improved since admission to the hospital. She does not have any hoarseness of voice. She is able to talk, and she was able to keep her food down and she was able to keep her liquids down today. Denies any history of fever, chills, nausea or vomiting. Denies any history of any headaches. The patient does complain of blurred vision and sometimes double vision. She sees sometimes flashes. Denies any difficulty in swallowing of her saliva. The patient has been having some vague right-sided chest discomfort, which in the past was related to her pleural effusion accumulating. Respiratory-min, the patient complains of dyspnea on exertion without any significant history of hemoptysis. The patient has no history of dysuria. Related to her myasthenia gravis, the patient has significant symptoms with the myasthenia gravis with episodes of crisis at least 5 times in the last 3 months. The patient feels that whenever she gets these myasthenic gravis episodes of crisis that she feels the tongue rolling back and that she feels that she is chocking when she gets these symptoms along with the other symptoms associated with the crisis. PAST MEDICAL HISTORY: Significant for thymoma, status post thymectomy, it is a malignant thymoma, in 10/2017; myasthenia gravis started after the thymoma resection; myasthenic crisis complicated with difficulty in walking, diplopia, home CPAP, dysphagia, elevated globulin, probably polyclonal. PAST SURGICAL HISTORY: As mentioned, thymoma, status post thymectomy with multiple thoracentesis; breast reduction bilateral for aesthetic reason, history of appendectomy. FAMILY HISTORY: Significant for the fact that the father of Melissa Gehrig disease at age 59, within a year. SOCIAL HISTORY: The patient lives alone. She has a close female friend, who lives there often. She has a boyfriend who lives closeby. Does not smoke. Does not drink. No history of any drug abuse. Ambulates independently without any assistance. The patient is working towards a thesis in public health at [employer], which she has to put a stop to in the last 3 months because she has been sick. ALLERGIES: THE PATIENT IS ALLERGIC TO PENICILLIN, KEFLEX, CODEINE, IODINE, SHELL FISH, LATEX AND PEANUTS. MEDICATIONS: Include pyridostigmine extended release 180 mg at bedtime with immediate release pyridostigmine 60 mg t.i.d. during the day. She is on albuterol nebulizer, Ventolin p.r.n. The pharmacy is [facility] on [address] in [place]. Doctors she has been following are Dr. Garibay, the neurologist, Dr. Santos and Dr. Hunt. It appears that Dr. has been also seeing her in the past from a Heme/Onc point of view. PHYSICAL EXAMINATION: At the time of consultation: GENERAL: The patient is awake, alert and oriented, is able to communicate with me properly and currently is on nasal O2. VITAL SIGNS: As labeled on the chart, T-max is 98.4, pulse is 78, respirations are 29, blood pressure is 122/90, pulse ox is 99%. HEENT: Head is normocephalic, atraumatic. Steroid facies is noted. Examination of the eye reveals conjunctivae to be pale. Sclerae is anicteric. Pupils are equally reactive to light and accommodation. Examination of the oropharynx reveals the mucous membranes to be moist. Tongue is normal. No ulcerations are noted. No evidence of any fungal infection. NECK: Supple. No palpable masses are noted in the neck at this time. LUNGS: Reveals decreased breath sounds in the right side posteriorly. There is no evidence of any accessory muscle use, rales, rhonchi or wheezes. CARDIOVASCULAR: Reveals PMI to be in the 5th intercostal space inside the midclavicular line. S1 and S2 are normal. No gallop or murmur is heard. ABDOMEN: Soft and nontender. Bowel sounds are present. No rebound, rigidity or guarding is noted. Liver and spleen are not palpable. No other masses are felt. EXTREMITIES: Reveal no cyanosis, clubbing, or edema. NEUROLOGIC: Reveals higher functions to be normal. No focal deficits are noted. The patient has no gross focal deficits at this time. The patient does have diplopia and the tongue is in the midline. PSYCHIATRIC: The patient has normal affect as far as psychiatric evaluation is concerned. SKIN: Turgor is normal. No skin lesions per se are noted. GENITOURINARY AND RECTAL: Deferred. LABORATORY DATA: The patient's labs were reviewed from today as well, white count is 12.5, probably related to the steroids; hemoglobin is 9.7; hematocrit is 28.9; platelet count is 459,000. Chemistries reveals a sodium of 142, K is 4.2 , BUN is 11, creatinine 0.7. Total bili is 1.4. AST of 37, ALT of 28. Total protein is 8.3, with an albumin of 3.4. Coags are within normal limits. The patient's review of the chest CT, as far as the mediastinum is concerned where she had the huge mediastinal mass in the anterior mediastinum, currently there is evidence of residual disease there on the CAT scan, which shows the following, the main pulmonary artery is unremarkable. There is a 2.5 cm pretracheal lymph node lymph node with swollen mediastinal nodes. The patient has a very small right pleural effusion. Elevation of the right side hemidiaphragm is noted, could be related to the surgery, maybe the phrenic node in the right side could have been compromised at the time of the surgery. ASSESSMENT, NOTES AND PLAN: This is a 47-year-old female who initially presented as I mentioned in 08/2017 with findings of a huge mediastinal mass, which was biopsied by Dr. Loy Newman at [facility], and at that time was reported as a malignant thymoma B1, and chest CT dated 08/14/2017 on review, currently in January, showed the following, this is before the surgery, and findings on that CAT scan dated 08/14/2017 reveals a large mass in the right middle lobe probably arising from the mediastinum that measures 9 cm in diameters and the mass has smooth borders, partially calcified, consistent with probably an anterior mediastinal mass, biopsy was recommended. The patient also was noted on the evaluation of the CAT scan, there was an enlarged peritracheal lymph node measuring 22 mm x 32 mm without any other mediastinal adenopathy, and concern at that time was probably differential diagnosis was mediastinal tumor versus a lung malignancy. The patient's biopsy from 08/2017 was read as malignant thymoma; staging-min, it is at least based on clinical staging, it is stage IV-A, because the pleural fluid has been positive 2/5 times out of which 1 time it has been conclusively diagnosed as it was sent to [facility] for further immunohistochemical testing. The original testing was also sent over to [facility] and the filed report at that time, on that report of 08/2017 was reported as thymoma and immunohistochemical studies that were done on that specimen supports thymoma type B1. Thymoma is categorized into B1, AB, B2 and B3. So, this was reported as thymoma B1. Based on the size, unfortunately, even though this is a better prognosis, involving local structures including invasion of the lymphatics, which would account for repeated fluid positivity and recurrent pleural effusions on the right side requiring multiple thoracentesis. Multiple episodes of myasthenic crisis is probably related to residual disease and that is why the patient is refractory to management. RECOMMENDATIONS: My recommendation at this point in time after assessing the patient, I told the patient that I would speak to Dr. Hunt to find out intraoperatively what was the size of the tumor, what was the character of the tumor even though it was able to be excised, was it invading any of the local structures. My recommendation after discussing with him would be to present the case to the Tumor Board. My recommendation would be that the patient be assessed for postoperative targeted radiotherapy, probably proton beam therapy rather than image-guided or targeted surgery at this time because of the critical nature radiation have to be given, which is the mediastinum, with its added consequences of involvement of the esophagus and the heart which are in the center of the problem. The patient has positive fluid; so, I personally think based on our guidelines, the patient would benefit from systemic chemotherapy. If they are going to use combined radiation and chemotherapy together, a drug combination such as Platinol-etoposide or carboplatin and taxol would be appropriate. Hopefully this would destroy the disease and also prevent the myasthenic crisis from reappearing again. If we were to just treat the myasthenic crisis alone, while we are debating what to do next for the patient, addition of a drug like Rituxan to decrease the requirement and also decrease the frequency of the myasthenic crisis episodes - that could be another option. I will speak to the neurologist involved in the care. I will speak to the doctors involved in the care from [facility] as well. I am going to be presenting this case in the Tumor Board and have our radiation oncologist also comment on what would be the best options for the patient. Please make a note, it took me more than 90 minutes to look at all the pictures starting from 08/2017 when the diagnosis was made to where we are now in 01/2018. I had a detailed discussion with the patient. More than 90 minutes were spent with her, with more than 50% of the time in [id number] encounter, discussing with her about all these findings. I have given her also detailed information regarding staging, and how the management of malignant thymoma is made from guidelines in up-to-date, which is one of our websites that are used commonly. The patient is very cognizant of all the facts and she would like to proceed once I have all the info available for her. I would probably wait on doing a thoracoscopy at this point as we have enough information on my hand as to which direction we should proceed. I will reach out to Dr. Lama, primary medical doctor, on the case and also reach out to the chiropractic neurologist on the case as well. Narcisa Cyr MD
[2018-01-12 08:52] LABS: ANISOCYTOSIS SLIGHT; BAND 2 % (0-2); LYMPHOCYTE 3 % (22.0-35.0); MONOCYTE 4 % (1.0-6.0); NEUTROPHIL 91 % (50.0-70.0); PLATELET ESTIMATE NORMAL (NORMAL)
[2018-01-12] MEDS: Albuterol 0.083% Inhal Sol (2.5 mg/3 mL) UD IH SCH ×3 (08:59→22:02)
--- NOTE | 2018-01-12 09:53 | RAD ---
HISTORY: difficulty breathing. more decrease breath sound R COMPARISON: Comparison chest 01/11/2020 FINDINGS: LUNGS: Right lower lobe opacification consistent with some combination of atelectasis and/or infiltrate and moderately large effusion. Suspect minor left basilar atelectasis Bilateral breast implants partially obscure both lung bases. PLEURA: No significant pleural effusion identified, no pneumothorax apparent. CARDIOVASCULAR: Normal. OSSEOUS STRUCTURES: No significant abnormalities. VISUALIZED UPPER ABDOMEN: Normal. OTHER FINDINGS: None. IMPRESSION: Right lower lobe opacification consistent with some combination of atelectasis and or infiltrate and moderately large effusion. Suspect minor left basilar atelectasis Bilateral breast implants partially obscure both lung bases.
--- NOTE | 2018-01-12 10:20 | CP.PCM.PN ---
<Peewee Baxter - Last Filed: 01/12/18 10:09> Subjective - Date & Time of Evaluation Date of Evaluation: 01/12/18 Time of Evaluation: 07:55 - Subjective Subjective: PGY1 Medicine Note for Dr. Lama Patient seen and examined at bedside this morning in ICU. Patient experienced shortness of breath last night causing her to be placed on BiPAP. Patient did not feel like it was secondary to her Myasthenia Gravis and more felt like fluid on her lung. She also reports episodes of bradycardia associated with a feeling that she was going to pass out. She received an extra dose of lasix which also helped improve her breathing. Patient is feeling much better this morning after receiving her medication. She is eager to go home but understands that she is still at a point where she is still becoming severely short of breath with minimal movement. She was resting comfortably on NC at this time and has no complaints. Denies fevers, chills, nausea, vomiting, diarrhea, constipation, chest pain, shortness of breath, palpitations, abdominal pain, urinary complaints, vision changes, numbness or tingling. Objective - Vital Signs/Intake and Output Vital Signs (last 24 hours): Temp Pulse Resp BP Pulse Ox 98.5 F 61 28 H 123/70 100 01/11/18 16:00 01/12/18 07:00 01/12/18 07:00 01/12/18 07:00 01/12/18 07:00 Intake and Output: 01/12/18 01/12/18 06:59 18:59 Intake Total 1050 Output Total 1000 Balance 50 - Medications Medications: Current Medications Acetaminophen (Tylenol 325mg Tab) 650 mg PO Q6H PRN PRN Reason: Pain, Mild (1-3) Last Admin: 01/11/18 11:54 Dose: 650 mg Albuterol Sulfate (Albuterol 0.083% Inhal Sanjuana (2.5 Mg/3 Ml) Ud) 2.5 mg IH TID ANNIE Last Admin: 01/12/18 08:59 Dose: 2.5 mg Diphenhydramine HCl (Benadryl) 50 mg IVP Q4H PRN PRN Reason: Allergy symptoms Last Admin: 01/11/18 11:55 Dose: 50 mg Heparin Sodium (Porcine) (Heparin) 5,000 units SC Q8 ANNIE PRN Reason: Protocol Last Admin: 01/12/18 05:24 Dose: 5,000 units Home Med (Home Med) 1 unit PO 2300 [facility] Last Admin: 01/11/18 22:58 Dose: 1 unit Doxycycline Hyclate 100 mg/ (Sodium Chloride) 100 mls @ 100 mls/hr IV Q12 [facility] Last Admin: 01/12/18 09:41 Dose: 100 mls/hr Aztreonam (Azactam 1 Gm) 100 mls @ 100 mls/hr IVPB Q8 [facility] PRN Reason: Protocol Last Admin: 01/12/18 05:24 Dose: 100 mls/hr Methylprednisolone (Solu-Medrol) 60 mg IVP Q12 [facility] Last Admin: 01/12/18 09:41 Dose: 60 mg Ondansetron HCl (Zofran Inj) 4 mg IVP 0500,1100,1700,2300 PRN PRN Reason: Nausea/Vomiting Last Admin: 01/12/18 05:24 Dose: 4 mg Pantoprazole Sodium (Protonix Inj) 20 mg IVP 0500,1100,1700 [facility] Last Admin: 01/12/18 05:23 Dose: 20 mg Pantoprazole Sodium (Protonix Inj) 40 mg IVP Q24H [facility] Last Admin: 01/11/18 22:56 Dose: 40 mg Pyridostigmine [place] (Mestinon Tab) 60 mg PO 0500,1100,1700 [facility] Last Admin: 01/12/18 05:24 Dose: 60 mg - Labs Labs: 01/12/18 05:00 01/12/18 05:00 PT 11.1 SECONDS (9.4-12.5) 01/10/18 08:32 INR 0.97 (0.93-1.08) 01/10/18 08:32 APTT 18.5 Seconds (25.1-36.5) L 01/10/18 08:32 - Constitutional Appears: Non-toxic, No Acute Distress - Head Exam Head Exam: ATRAUMATIC, NORMOCEPHALIC - Eye Exam Eye Exam: Normal appearance - ENT Exam ENT Exam: Mucous Membranes Moist - Respiratory Exam Respiratory Exam: Decreased Breath Sounds (right base). absent: Accessory Muscle Use, Rales, Rhonchi, Wheezes, Respiratory Distress, NORMAL BREATHING PATTERN (breathing comfortably but RR ~24) - Cardiovascular Exam Cardiovascular Exam: REGULAR RHYTHM, +S1, +S2 - GI/Abdominal Exam GI & Abdominal Exam: Soft, Normal Bowel Sounds. 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 She was discharged 3 weeks ago, not on the prednisone 60mg that she was discharged with due to side effect of edema. Last IVIG infusion was 2 weeks ago. Today, pt has worsening dyspneic on exertion and extreme fatique. She had chronic chest tightness from pleural effusion but the chest tightness was worsened. Diplopia, motor weakness, paresthsia, dysphagia all worsened today. She is likely having a myasthenia gravis exacerbation. In the ED, FVC is 700cc ( 13 ml/kg). NIF is negative 30 cm H2O. CXR showed R lower lobe infiltreate and R pleural effusion, unchanged. Plan: Myasthenia gravis exacerbation - s/p thymectomy for thymoma - Admit to ICU - Neurology Consulted, Dr. Cardozo - help appreciated - Hem/Onc Consulted, Dr. Cyr - help appreciated - Monitor FVC, NIF, Peak flow, QID (Per ICU) - suction as needed due to reduce strength of cough - BIPAP prn; intubation as needed VC falls below 15 to 20 mL/kg MIP is less negative than -25 to -30 cmH20 (ie, between 0 and -30 cmH20) - Pyridostigmine IR @ 0500, 1100, 1700; Pyridostigmine ER (home med) @ 2300 * Discussed with nurses the importance of these medications given on time. Patient reports temporary paralysis if there is a delay in medication administration while at home. Patient is very aware of her condition and is very consistent with her medications. - Solu-medrol 60mg IVP q8h - low threshold to intubate - aspiration precaution - Neuro and Heme on board; Defer decision to (1) plasmapheresis, (2) steroid to heme/neuro - PT, OT, ST - Extensive discussion had between Dr. Lama, Resident Vee and patient. She is very well educated on her disease. She lives alone at home with her dogs. It was explained to her that she is still in a potentially dangerous position, even though she is currently stable. Patient became severely short of breath last night requiring her to be placed back on BiPAP. Patient's symptoms waxes and wanes in accordance to her Pyridostigmine administration. Patient is still not walking around at this time and experiencing episodes of severe shortness of breath. She also experience Bradycardia last night with a feeling like she was going to pass out. She does not believe that she has ever experienced Bradycardia in the past but previous hospitalization notes mention asymptomatic bradycardia during previous ICU admission at [facility]. Patient does not believe that her shortness of breath last night was secondary to her MG but more due to fluid on the lungs. She will be monitored in ICU today and re-evaluated for possible thoracentesis by Dr. Newman tomorrow. A discussion also including possible chemo and radiation therapy, proton-beam therapy. Patient reports conversation with Dr. Cyr yesterday about starting both and will follow up with him closes upon resolution of current MG crisis. She is aware that the closest proton-beam therapy is located in [place], [place]. Patient was given a chance to ask any questions at this time which she states she feels very comfortable and agrees to stay another night. Chest pressure likely from R lower lobe infiltrate and R pleural effusion - Trops neg x 2 - Hgb A1C 4.6 - TSH 0.20 - lipid panel - Tri 220/Chol 227/LDL 115/HDL42 R lower lobe infiltrate, questionable pneumonia - Recent hospitalization - will treat for HAP - CXR 01/10: Right lower lobe infiltrate and right pleural effusion remain essentially unchanged accounting for differences in technique (portable examination compared to the prior two-view chest). - Repeat CXR 01/12: Right lower lobe opacification consistent with some combination of atelectasis and or infiltrate and moderately large effusion. Suspect minor left basilar atelectasis Bilateral breast implants partially obscure both lung bases - Chest CT w/o 01/10: Elevation of the right hemidiaphragm. Small right effusion. Minimal atelectasis at the right lung base. No evidence of pneumothorax - Albuterol 2.5mg IH TID - Aztreonam 1gm IVPB q8h (started on 01/10) - Doxycyclin 100mg IVPB q12h (started on 01/10) - urine culture no growth - blood culture no growth at 48 hours - procalcitonin <0.05 - flu screen - strep Ag, mycoplasma Ag, Legionella Ag - ID consult, Dr. Shane Fermin pleural effusion - Repeat CXR 01/12: Right lower lobe opacification consistent with some combination of atelectasis and or infiltrate and moderately large effusion. Suspect minor left basilar atelectasis Bilateral breast implants partially obscure both lung bases - Will re-consult IR, Dr. Newman, for possible thoracentesis. Bradycardia Cardiology consulted, Dr. Gomes, help appreciated Patient experiencing waxing and waning HR in 40's at night time, reports feeling that she may "pass out". Has not lost consciousness. Prophylactic Care - Protonix, Heparin - Diet: Reg consistency, 6 small meals w/ thin liquids - aspiration precautions , per speech Case discussed with Dr. Kelby Vides Vee PGY1 <Raudel Lama - Last Filed: 01/12/18 11:32> Objective - Vital Signs/Intake and Output Vital Signs (last 24 hours): Temp Pulse Resp BP Pulse Ox 98.5 F 61 28 H 123/70 100 01/11/18 16:00 01/12/18 07:00 01/12/18 07:00 01/12/18 07:00 01/12/18 07:00 Intake and Output: 01/12/18 01/12/18 06:59 18:59 Intake Total 1050 Output Total 1000 Balance 50 - Medications Medications: Current Medications Acetaminophen (Tylenol 325mg Tab) 650 mg PO Q6H PRN PRN Reason: Pain, Mild (1-3) Last Admin: 01/11/18 11:54 Dose: 650 mg Albuterol Sulfate (Albuterol 0.083% Inhal Sanjuana (2.5 Mg/3 Ml) Ud) 2.5 mg IH TID ANNIE Last Admin: 01/12/18 08:59 Dose: 2.5 mg Diphenhydramine HCl (Benadryl) 50 mg IVP Q4H PRN PRN Reason: Allergy symptoms Last Admin: 01/11/18 11:55 Dose: 50 mg Heparin Sodium (Porcine) (Heparin) 5,000 units SC Q8 ANNIE PRN Reason: Protocol Last Admin: 01/12/18 05:24 Dose: 5,000 units Home Med (Home Med) 1 unit PO 2300 [facility] Last Admin: 01/11/18 22:58 Dose: 1 unit Doxycycline Hyclate 100 mg/ (Sodium Chloride) 100 mls @ 100 mls/hr IV Q12 ANNIE Last Admin: 01/12/18 09:41 Dose: 100 mls/hr Aztreonam (Azactam 1 Gm) 100 mls @ 100 mls/hr IVPB Q8 ANNIE PRN Reason: Protocol Last Admin: 01/12/18 05:24 Dose: 100 mls/hr Methylprednisolone (Solu-Medrol) 60 mg IVP Q12 [facility] Last Admin: 01/12/18 09:41 Dose: 60 mg Ondansetron HCl (Zofran Inj) 4 mg IVP 0500,1100,1700,2300 PRN PRN Reason: Nausea/Vomiting Last Admin: 01/12/18 10:55 Dose: 4 mg Pantoprazole Sodium (Protonix Inj) 20 mg IVP 0500,1100,1700 [facility] Last Admin: 01/12/18 10:55 Dose: 20 mg Pantoprazole Sodium (Protonix Inj) 40 mg IVP Q24H [facility] Last Admin: 01/11/18 22:56 Dose: 40 mg Pyridostigmine [place] (Mestinon Tab) 60 mg PO 0500,1100,1700 [facility] Last Admin: 01/12/18 10:55 Dose: 60 mg - Labs Labs: 01/12/18 05:00 01/12/18 05:00 PT 11.1 SECONDS (9.4-12.5) 01/10/18 08:32 INR 0.97 (0.93-1.08) 01/10/18 08:32 APTT 18.5 Seconds (25.1-36.5) L 01/10/18 08:32 Attending/Attestation - Attestation I have personally seen and examined this patient.: Yes I have fully participated in the care of the patient.: Yes I have reviewed all pertinent clinical information, including history, physical exam and plan: Yes Notes (Text): 01/12/18 11:27 attending note; Patient seen and examined with resident in ICU. patient is on oxygen nasal cannula now. The patient was placed on BiPAP last night because of shortness of breath. Patient had repeat chest x-ray showed mild atelectasis/moderate pleural effusion. Decreased breath sounds on the right lower half of the lung. Patient also had episodes of bradycardia last night. Currently heart rate in the 60s. Patient is a 47 -year-old female with the recent diagnosis of thymoma & myasthenia gravis s/p thymectomy , myasthenia crisis in November 2017 ,previous intubation is admitted for worsening of dyspnea. Acute myasthenia crisis. Episodes of difficulty breathing. Got second dose of IVIG yesterday. Continue IV Steroid. Neurology evaluation appreciated.case discussed with neurology Dr. Cardozo in detail. Continue Mestinon/ home dose. Right-sided pleural effusion; CT scan showed small effusion as before. ID evaluation appreciated. Currently on IV Azactam and doxycycline. Cultures are negative so far. Status post thymoma resection. Recent thoracentesis showed thymoma cells. oncology evaluation appreciated. Case discussed with Dr. Cyr in detail yesterday. Might need outpatient proton beam radiation therapy/systemic chemotherapy. Patient is aware of treatment options. Patient will closely follow up with Dr. Cyr. We will contact intervention radiology Dr. Loy Newman to review CAT scan for the possible thoracentesis. bardycardia; resolved. Recent echo with normal ejection fraction. Cardiology evaluation requested. Monitor patient closely in ICU. Upon discharge the patient will follow up with PMD Dr. Santos. Patient needs close follow-up with cardiothoracic surgery . Patient will follow-up with oncology Dr. Cyr for further treatment plan. 01/12/18 11:29
--- NOTE | 2018-01-12 12:03 | PN ---
DATE: 01/12/2018 FIELD IRRIGATION WORKER NOTE SUBJECTIVE: The patient is resting in bed. Stated that she had a fairly rough night. She had some episodes of shortness of breath that required the BiPAP last night. She also states that she feels chest fullness when she lays back understanding that she does have a right-sided pleural effusion. She is on nasal cannula at this time and O2 saturations are good and no true chest pain. No fever, chills or nausea or vomiting. The patient continues to get her medications for the Myasthenia gravis. The patient also had episodes of bradycardia last night, but there is a history of this in the past. We will continue to observe closely. Talking to primary care doctor about Cardiology consult. PHYSICAL EXAMINATION: VITAL SIGNS: Note that her temperature is 98.5, pulse is 61, respirations of 28, BP is 123/70. O2 saturation is 100%. HEENT: Head is atraumatic, normocephalic. Eyes reactive to light. Ears, nose and throat seemed to be within normal limits. NECK: Supple. No JVD. No thyroid enlargement or lymph nodes. HEART: Has regular rate and rhythm. Normal S1, S2. LUNGS: Reveal decreased breath sounds on the right and the lower region. ABDOMEN: Soft. Decreased bowel sounds. GENITALIA: Deferred. RECTAL: Deferred. MUSCULOSKELETAL: No joint deformities. EXTREMITIES: Reveals no significant edema. NEUROLOGIC: She seemed to be grossly intact. DATA: As far as laboratories are concerned, her white count is 12.9, hemoglobin is 9.9, hematocrit 30.4 with platelets of 427,000. The patient's arterial blood gas reveals a pH of 7.39, pCO2 of 42, pO2 of 142. Sodium is 144, potassium 3.9, chloride 114, CO2 of 23 with a BUN of 20, creatinine of 0.9 and a glucose of 149. Chest x-ray reveals that there was [id number] right-sided pleural effusion. IMPRESSION: As far as impression, the patient has Myasthenia gravis with a history of thymoma and thymectomy. She has right-sided veaelghg-[id number] pleural effusion and has episodes of bradycardia. The patient does have anemia as well. PLAN: As far as our plan, we will continue to monitor closely. The patient will be on BiPAP as needed. She is on O2 via nasal cannula. We will continue with aggressive pulmonary toilet, continue with bronchodilators and antibiotics of doxycycline. The patient is on heparin subcutaneous and is on Protonix and Solu-Medrol and the patient will be scheduled for thoracentesis in the morning. We will continue to work with Neurology as well as the primary care doctor and continue to treat with pyridostigmine as well as the IVIG. Douglas Carbajal MD
--- NOTE | 2018-01-12 15:37 | CARD ---
APPROVED REPORT EKG Measurement Heart [id number] <Conclusion> Sinus bradycardia Otherwise normal ECG
[2018-01-12 18:12] VITALS: TEMP 97.3
--- NOTE | 2018-01-12 18:21 | CP.PCM.PN ---
Subjective - Date & Time of Evaluation Date of Evaluation: 01/12/18 Time of Evaluation: 16:30 - Subjective Subjective: Infectious Disease Follow Up: January 12, 2018 47 yo female with recent thymoma surgery and myasthenia gravis with myasthenia crisis in November 2017. SOB. On IVIG for myasthenia gravis treatment. The patient was trying to stop her 4 dogs from fighting and became dyspneic and fatigued. The patient was admitted to the MICU. The patient has PCN allergies that lead to rash, swelling, and closing of the throat. She is currently on nasal cannula. The patient was on placed back on BiPAP yesterday due to SOB. She improved with Lasix administration. The patient is still overall weak and becomes SOB with light exertion and even on speaking. Objective - Vital Signs/Intake and Output Vital Signs (last 24 hours): Temp Pulse Resp BP Pulse Ox 97.3 F L 72 30 H 143/79 94 L 01/12/18 16:00 01/12/18 18:00 01/12/18 18:00 01/12/18 18:00 01/12/18 18:00 Intake and Output: 01/12/18 01/12/18 06:59 18:59 Intake Total 1050 Output Total 1000 Balance 50 - Medications Medications: Current Medications Acetaminophen (Tylenol 325mg Tab) 650 mg PO Q6H PRN PRN Reason: Pain, Mild (1-3) Last Admin: 01/11/18 11:54 Dose: 650 mg Albuterol Sulfate (Albuterol 0.083% Inhal Sanjuana (2.5 Mg/3 Ml) Ud) 2.5 mg IH TID [facility] Last Admin: 01/12/18 14:21 Dose: 2.5 mg Diphenhydramine HCl (Benadryl) 50 mg IVP Q4H PRN PRN Reason: Allergy symptoms Last Admin: 01/11/18 11:55 Dose: 50 mg Heparin Sodium (Porcine) (Heparin) 5,000 units SC Q8 ANNIE PRN Reason: Protocol Last Admin: 01/12/18 13:44 Dose: 5,000 units Home Med (Home Med) 1 unit PO 2300 [facility] Last Admin: 01/11/18 22:58 Dose: 1 unit Doxycycline Hyclate 100 mg/ (Sodium Chloride) 100 mls @ 100 mls/hr IV Q12 [facility] Last Admin: 01/12/18 09:41 Dose: 100 mls/hr Aztreonam (Azactam 1 Gm) 100 mls @ 100 mls/hr IVPB Q8 ANNIE PRN Reason: Protocol Last Admin: 01/12/18 13:44 Dose: 100 mls/hr Methylprednisolone (Solu-Medrol) 60 mg IVP Q12 [facility] Last Admin: 01/12/18 09:41 Dose: 60 mg Ondansetron HCl (Zofran Inj) 4 mg IVP 0500,1100,1700,2300 PRN PRN Reason: Nausea/Vomiting Last Admin: 01/12/18 16:59 Dose: 4 mg Pantoprazole Sodium (Protonix Inj) 20 mg IVP 0500,1100,1700 [facility] Last Admin: 01/12/18 16:59 Dose: 20 mg Pantoprazole Sodium (Protonix Inj) 40 mg IVP Q24H [facility] Last Admin: 01/11/18 22:56 Dose: 40 mg Pyridostigmine [place] (Mestinon Tab) 60 mg PO 0500,1100,1700 [facility] Last Admin: 01/12/18 16:59 Dose: 60 mg - Labs Labs: 01/12/18 05:00 01/12/18 05:00 PT 11.1 SECONDS (9.4-12.5) 01/10/18 08:32 INR 0.97 (0.93-1.08) 01/10/18 08:32 APTT 18.5 Seconds (25.1-36.5) L 01/10/18 08:32 - Constitutional Appears: Non-toxic, No Acute Distress, Chronically Ill - Head Exam Head Exam: ATRAUMATIC, NORMOCEPHALIC - Eye Exam Eye Exam: EOMI, PERRL Pupil Exam: NORMAL ACCOMODATION, PERRL - ENT Exam ENT Exam: Mucous Membranes Moist, Normal External Ear Exam, TM's Normal Bilaterally - Neck Exam Neck Exam: Full ROM, Normal Inspection - Respiratory Exam Respiratory Exam: Decreased Breath Sounds, Wheezes, Respiratory Distress, NORMAL BREATHING PATTERN. absent: Rales, Rhonchi - Cardiovascular Exam Cardiovascular Exam: REGULAR RHYTHM, RRR, +S1, +S2 - GI/Abdominal Exam GI & Abdominal Exam: Soft, Normal Bowel Sounds. absent: Distended, Tenderness - Extremities Exam Extremities Exam: Normal Capillary Refill, Normal Inspection. absent: Full ROM - Neurological Exam Neurological Exam: Alert, Awake, CN II-XII Intact, Oriented x3 - Psychiatric Exam Psychiatric exam: Normal Affect, Normal Mood - Skin Skin Exam: Intact, Normal Color Assessment and Plan - Assessment and Plan (Free Text) Assessment: 47 yo female with SOB and dyspnea occuring when trying to stop her 4 dogs from fighting. The patient has a history of myasthenia gravis on IVIG for treatment. The patient was admitted to MICU for evaluation and monitoring. Started on meropenem but patient has a PCN allergy. Right lower lobe infiltrate... questionable pneumonia. Given reaction history to PCN, I would switch to Aztreonam for now. Can continue with doxycycline. CT chest pending. Continue Bendaryl and solumedrol. Rash on chest around scar area... rash not present before hospitalization. The rash can be secondary to Meropenem or IVIG. Continue on Aztreonam. Had to be placed back on BiPAP last night and placed back on Nasal Canula this afternoon. Remains SOB on light exertion. Cultures currently negative. Supportive care. Thank you for allowing me to participate in the care of the patient, we will follow with you.
[2018-01-12] MEDS: PYRIDOSTIGMINE 180 MG PO SCH (22:36)
--- NOTE | 2018-01-13 00:49 | CON ---
DATE: REASON FOR CONSULTATION: Sinus bradycardia. HISTORY OF PRESENT ILLNESS: The patient is a 47 years old female who migrated from [place] and was diagnosed recently with Myasthenia gravis and thymoma, underwent thymectomy in 10/2017 in [facility] in [facility] and may require admission to [facility] with myasthenia crisis and required intubation and mechanical ventilation. The patient presents at this time because of worsening shortness of breath and was admitted to ICU. The patient was noted to be bradycardic. The lowest heart rate reported was beats per minute. No significant pauses. The patient does report feeling dizzy when her heart beat become slow, but denies any fainting or falling. The patient stated that after the thymectomy, her Myasthenia gravis got better in attempts of generalized weakness, but she still experiences a myasthenia crisis last month that required intubation and mechanical ventilation. The patient denies any chest pain. SOCIAL HISTORY: Nonsmoker. MEDICATIONS: Albuterol inhaler t.i.d., Azactam 1 g every 8 hours, benadryl 50 mg intravenously every 4 hours, doxycycline 100 mg intravenously every 12 hours, subcutaneous heparin 5000 units every 8 hours, Protonix 20 mg intravenously three times a day, Protonix 40 mg intravenously daily, pyridostigmine bromide 60 mg p.o. t.i.d., Solu-Medrol 60 mg intravenous twice a day, Zofran 4 mg intravenously every 6 hours p.r.n. PHYSICAL EXAMINATION: GENERAL: The patient is a middle-aged female, who does not appear to be in acute distress. VITAL SIGNS: Blood pressure 123/70, heart rate 52, respirations 20, temperature 97.9. HEENT: Normocephalic. CHEST: Clear. HEART: S1 and S2 regular. EXTREMITIES: No edema. LABORATORY DATA: Hemoglobin and hematocrit 9.9 and 30.4, white count 12.9, platelet count 427,000. SMA-7: Sodium 144, potassium 3.9, chloride 114, CO2 23, glucose 149, BUN 20, creatinine 0.9. TSH level is 0.2. Triglycerides 220. Total cholesterol 227. Chest x-ray revealed right lower lobe infiltrates and moderate right pleural effusion. Chest CT scan without contrast revealed elevation of the right hemidiaphragm, small right effusion, minimal atelectasis on the right base, that CAT scan was done two days prior to the previously stated chest x-ray. EKG, 01/10 revealed sinus rhythm and a poor R-wave progression, cannot rule out anterior infarct, heart rate was 84. Today's EKG revealed sinus bradycardia with a rate of 57, otherwise normal EKG. Echocardiographic study performed in October of this year revealed normal ventricular size or thickness, systolic function and ejection fraction with mild pulmonary hypertension. EKG in 12/02 revealed normal sinus rhythm at a rate of 83 with poor R wave progression. EKG performed in 12/10/2017 revealed what was described as supraventricular tachycardia, but in reality was sinus tachycardia at a rate of 32. ASSESSMENT: 1. Sinus bradycardia with lowest heart rate was 39. 2. Status post thymectomy for Myasthenia gravis. 3. Moderate right pleural effusion by today's x-ray. RECOMMENDATIONS: 1. Continue current IV doxycycline, IV Solu-Medrol, IV Protonix and oral pyridostigmine. 2. It is possible that pyridostigmine may contribute to sinus bradycardia as a cholinergic agent ; however, no intervention is needed at this point as the patient's average heart rate is in the 50s and 60s at this time. Gianluca Gomes MD
[2018-01-13] MEDS: Aztreonam 1 Gm in NS 100mL 100 ML IVPB SCH ×3 (05:21→22:52)
[2018-01-13 06:52] LABS: BASO # 0.01 K/mm3 (0.0-2.0); BASO % 0.1 % (0.0-3.0); GRAN # 12.43 (1.4-6.5); GRAN % 86.9 % (50.0-68.0); HEMOGLOBIN 10.2 g/dL (12.0-16.0); LYMPH # 1.3 (1.2-3.4); LYMPH % 8.9 % (22.0-35.0); MEAN CELL VOLUME 90.6 fl (80.0-105.0); MEAN CORPUSCULAR HEMOGLOBIN 29.8 pg (25.0-35.0); MEAN CORPUSCULAR HGB CONC 32.9 g/dl (31.0-37.0); MEAN PLATELET VOLUME 9.1 fl (7.0-11.0); MONO # 0.6 (0.1-0.6); MONO % 4.1 % (1.0-6.0); RBC 3.42 10^6/uL (3.5-6.1); RED CELL DISTRIBUTION WIDTH 18.5 % (11.5-14.5); WHITE BLOOD COUNT 14.3 10^3/ul (4.5-11.0)
[2018-01-13] MEDS: Albuterol 0.083% Inhal Sol (2.5 mg/3 mL) UD IH SCH ×3 (07:47→20:35)
[2018-01-13 08:07] LABS: ALB/GLOB RATIO 0.7 (1.1-1.8); ALBUMIN 3.7 g/dL (3.0-4.8); ALT/SGPT 59 U/L (7-56); AST/SGOT 50 U/L (14-36); BLOOD UREA NITROGEN 23 mg/dL (7-21); CALCIUM 9.1 mg/dL (8.4-10.5); GFR AFRICAN-AMERICAN > 60; GFR NON-AFRICAN AMERICAN > 60
--- NOTE | 2018-01-13 08:50 | CON ---
DATE: 01/10/2018 HISTORY OF PRESENT ILLNESS: This is a 47-year-old lady with history of thymoma, status post resection in 10/2017 and myasthenia gravis (on pyridostigmine) who presented with sudden onset of acute shortness of breath since awakening this morning, exacerbated by exertion/walking. She also had central chest tightness and pain. She said that the similar symptoms occurred in the past when she was admitted to [facility] ICU and at that time, she was intubated. Chest x-ray at that time also showed pleural effusion requiring thoracentesis. No fever. No chills. No sweats. No nausea. No vomiting or diarrhea. PAST MEDICAL HISTORY: Myasthenia gravis and thymoma. SOCIAL HISTORY: No alcohol or illicit drug abuse. No tobacco smoking. ALLERGIES: CEPHALEXIN, CODEINE, IODINE, LATEX, PEANUT, PENICILLIN, SHELLFISH. FAMILY HISTORY: Noncontributory. MEDS: Reviewed Physical Exam: 120/80; HR 90, RR 22, T 98.6 HEENT: Head is atraumatic Lungs: CTA b/l, BS decreased in right base Heart: regular s1s2 nl Abdo: soft, NT LUCITA: no c/c/e Skin: moist Neuro: motor strength symmetrical and can move all extremities Psych: alert awake and oriented, anxious, but not in respiratory distress Labs: reviewed CXR: rll volume loss (infiltrate vs pleural effusion) VC 700, NIF -40 Assessment and Plan: MG crisis due to CAP. treat infection, septic workup, abx. avoid aminoglycosides. CT chest ordered by ER. steroids and IVIG were given. VC and NIF q6. Low threshold for intubation, but for now doing ok on BPAP. ABG--no c02 retention. lactic acidosis resolved. NPO for now. ICU, neuro consult. DVT/GI prophylaxis ccm time 40 min Addendum: repeated VC 720, NIF: -60 (after IVIG and steroids) pt is more comfortable Ash Walker MD SINGH
--- NOTE | 2018-01-13 12:31 | CP.PCM.PN ---
Subjective - Date & Time of Evaluation Date of Evaluation: 01/13/18 Time of Evaluation: 12:28 - Subjective Subjective: Patient seen and examined at bedside. Per nursing no acute events occurred overnight. The patient reports she didn't need to use her BIPAP machine last night and didn't use nasal cannula either. She does report a dry cough today, double vision and some muscle fatigue. She does overall feel better today. She denies any chest pain, fevers, dizziness, nausea, vomiting, abdominal pain, or any other complaints Objective - Vital Signs/Intake and Output Vital Signs (last 24 hours): Temp Pulse Resp BP Pulse Ox 97.3 F L 58 L 30 H 143/79 94 L 01/12/18 16:00 01/13/18 10:00 01/12/18 18:00 01/12/18 18:00 01/12/18 18:00 Intake and Output: 01/13/18 01/13/18 06:59 18:59 Intake Total 300 Output Total 650 Balance -350 - Medications Medications: Current Medications Acetaminophen (Tylenol 325mg Tab) 650 mg PO Q6H PRN PRN Reason: Pain, Mild (1-3) Last Admin: 01/11/18 11:54 Dose: 650 mg Albuterol Sulfate (Albuterol 0.083% Inhal Sanjuana (2.5 Mg/3 Ml) Ud) 2.5 mg IH 0800, 1400,2000 [facility] Last Admin: 01/13/18 07:47 Dose: 2.5 mg Diphenhydramine HCl (Benadryl) 50 mg IVP Q4H PRN PRN Reason: Allergy symptoms Last Admin: 01/11/18 11:55 Dose: 50 mg Heparin Sodium (Porcine) (Heparin) 5,000 units SC Q8 ANNIE PRN Reason: Protocol Last Admin: 01/12/18 21:11 Dose: 5,000 units Home Med (Home Med) 1 unit PO 2300 ANNIE Last Admin: 01/12/18 22:36 Dose: 1 unit Aztreonam (Azactam 1 Gm) 100 mls @ 100 mls/hr IVPB Q8 ANNIE PRN Reason: Protocol Last Admin: 01/13/18 05:21 Dose: 100 mls/hr Ondansetron HCl (Zofran Inj) 4 mg IVP 0500,1100,1700,2300 PRN PRN Reason: Nausea/Vomiting Last Admin: 01/13/18 05:07 Dose: 4 mg Pantoprazole Sodium (Protonix Inj) 20 mg IVP 0500,1100,1700 [facility] Last Admin: 01/13/18 10:01 Dose: 20 mg Pantoprazole Sodium (Protonix Inj) 40 mg IVP Q24H [facility] Last Admin: 01/11/18 22:56 Dose: 40 mg Prednisone (Prednisone Tab) 60 mg PO DAILY [facility] Last Admin: 01/13/18 10:01 Dose: 60 mg Pyridostigmine Elizabeth (Mestinon Tab) 60 mg PO 0500,1100,1700 [facility] Last Admin: 01/13/18 10:02 Dose: 60 mg - Labs Labs: 01/13/18 05:40 01/13/18 05:40 PT 11.1 SECONDS (9.4-12.5) 01/10/18 08:32 INR 0.97 (0.93-1.08) 01/10/18 08:32 APTT 18.5 Seconds (25.1-36.5) L 01/10/18 08:32 - Head Exam Head Exam: ATRAUMATIC, NORMAL INSPECTION, NORMOCEPHALIC - Eye Exam Eye Exam: EOMI, Normal appearance Pupil Exam: NORMAL ACCOMODATION - ENT Exam ENT Exam: Mucous Membranes Moist - Respiratory Exam Respiratory Exam: Decreased Breath Sounds. absent: Chest Wall Tenderness, Wheezes, Respiratory Distress - Cardiovascular Exam Cardiovascular Exam: REGULAR RHYTHM, +S1, +S2 - GI/Abdominal Exam GI & Abdominal Exam: Soft, Normal Bowel Sounds - Extremities Exam Extremities Exam: Full ROM. absent: Joint Swelling, Pedal Edema, Tenderness - Back Exam Back Exam: NORMAL INSPECTION. absent: paraspinal tenderness - Neurological Exam Neurological Exam: Alert, CN II-XII Intact, Oriented x3 - Psychiatric Exam Psychiatric exam: Normal Affect, Normal Mood - Skin Skin Exam: Dry Assessment and Plan - Assessment and Plan (Free Text) Assessment: Ms Unger, 47 F, recently found to have thymoma & myasthenia gravis s/p thymectomy all happened in October 2017, developed myashenic crisis in November 2017 after IVIG, admitted to [facility] ICU requiring intubation/thoracentesis/ IVIG. She was discharged 3 weeks ago, not on the prednisone 60mg that she was discharged with due to side effect of edema. Last IVIG infusion was 2 weeks ago. Today, patient reports any improvement in her breathing symptoms. Plan: Myasthenia gravis exacerbation - s/p thymectomy for thymoma - Admit to ICU - Neurology Consulted, Dr. Cardozo - help appreciated - Hem/Onc Consulted, Dr. Cyr - help appreciated - Monitor FVC, NIF, Peak flow, QID (Per ICU) - suction as needed due to reduce strength of cough - BIPAP prn; intubation as needed VC falls below 15 to 20 mL/kg MIP is less negative than -25 to -30 cmH20 (ie, between 0 and -30 cmH20) - Continue Pyridostigmine IR @ 0500, 1100, 1700 * Discussed with nurses the importance of these medications given on time. Patient reports temporary paralysis if there is a delay in medication administration while at home. Patient is very aware of her condition and is very consistent with her medications. - Solu-medrol 60mg IVP q12h - low threshold to intubate - aspiration precaution - Physical therapy consulted. Will await further rec's. Chest pressure likely from R lower lobe infiltrate and R pleural effusion - Trops neg x 2 - Hgb A1C 4.6 - TSH 0.20 - lipid panel - Tri 220/Chol 227/LDL 115/HDL42 Right lower lobe infiltrate, questionable pneumonia - Recent hospitalization - will treat for HAP - CXR 01/10: Right lower lobe infiltrate and right pleural effusion remain essentially unchanged accounting for differences in technique (portable examination compared to the prior two-view chest). - Repeat CXR 01/12: Right lower lobe opacification consistent with some combination of atelectasis and or infiltrate and moderately large effusion. Suspect minor left basilar atelectasis Bilateral breast implants partially obscure both lung bases - Chest CT w/o 01/10: Elevation of the right hemidiaphragm. Small right effusion. Minimal atelectasis at the right lung base. No evidence of pneumothorax - Continue Albuterol 2.5mg IH TID - Continue Aztreonam 1gm IVPB q8h (started on 01/10) - Continue Doxycycline 100mg IVPB q12h (started on 01/10) - urine culture negative - blood culture negative x48 hours. - procalcitonin <0.05 - Will f/u with flu screen results. - Will follow up with strep Ag, mycoplasma Ag, Legionella Ag results - ID consult, Dr. Lynn rec's appreciated. R pleural effusion - Repeat CXR 01/12: Right lower lobe opacification consistent with some combination of atelectasis and or infiltrate and moderately large effusion. Suspect minor left basilar atelectasis Bilateral breast implants partially obscure both lung bases - Will re-consult IR, Dr. Newman, for possible thoracentesis. Bradycardia Cardiology consulted, Dr. Gomes, rec's appreciated. No further intervention at this time Cardiology. Will monitor. Prophylactic Care - Protonix, Heparin - Diet: Reg consistency, 6 small meals w/ thin liquids - aspiration precautions , per speech Case discussed with Dr. Kelby Rogers, PGY-1
--- NOTE | 2018-01-13 13:17 | CP.PCM.CON ---
History of Present Illness - History of Present Illness History of Present Illness: Ms Unger is a 47 year old female with a past medical history significant for a thymoma status post resection in October 2017 at [facility] with Dr Hunt. Her history dates back approximately two years ago when she was suffering with shortness of breath for which she was treated for asthma. She also noticed that she would have episodes of blurry vision. In June of 2017, she incidentally palpated a right neck mass. A CT of the neck which revealed a 2.4cm enlarged right paratracheal lymph node. During that scan, they incidentally appreciated a mass in the right apices of the lung. She had further evaluation including a CT of the chest which revealed a 12cm right upper lung mass. A biopsy confirmed thymoma. She underwent resection with Dr Hunt in October 2017 at [facility]. She also had a PET scan there prior to surgery. Prior to surgery, she also saw a neurologist and interior design project manager for clearance, and was diagnosed with myasthenia gravis. She was started on mestinon. In October 2017, she underwent resection. As per the patient, because the mass was encapsulated, she was informed that she did not require any adjuvant therapy. Since then, she has been having issues with recurrent right pleural effusions requiring thoracentesis. Most recently, she has been admitted with myasthenia crisis. Her previous hospital admission was at [facility] where she was intubated. The pleural cytology showed atypical cells. Unfortunately, she developed sudden onset of shortness of breath, dizziness and fatigue. She was admitted to [facility] on January 10, 2018. A CT of the chest on January 10, 2018 revealed an elevated right hemidiaphragm. There was a 2.5cm pretracheal lymph node. There were small mediastinal lymph nodes. We are asked to see this patient about the role of local radiation with chemotherapy for her thymoma. Review of Systems - Constitutional Constitutional: Weakness - EENT Eyes: Change in Vision - Respiratory Respiratory: Dyspnea, Dyspnea on Exertion - Musculoskeletal Musculoskeletal: Muscle Weakness - Neurological Neurological: Dizziness, Numbness, Focal Weakness Past Patient History - Infectious Disease Hx of Infectious Diseases: None - Tetanus Immunizations Tetanus Immunization: Unknown - Past Social History Smoking Status: Never Smoked Alcohol: None Home Situation {Lives}: Alone - CARDIAC Hx Pacemaker: No - PULMONARY Hx Asthma: Yes - NEUROLOGICAL Hx Neurological Disorder: No - HEENT Hx HEENT Problems: No - RENAL Hx Chronic Kidney Disease: No - ENDOCRINE/METABOLIC Hx Endocrine Disorders: No - HEMATOLOGICAL/ONCOLOGICAL Hx Blood Disorders: No - INTEGUMENTARY Hx Dermatological Problems: No - MUSCULOSKELETAL/RHEUMATOLOGICAL Hx Musculoskeletal Disorders: No Hx Myasthenia Gravis: Yes - GASTROINTESTINAL Hx Gastrointestinal Disorders: No - GENITOURINARY/GYNECOLOGICAL Hx Genitourinary Disorders: No - PSYCHIATRIC Hx Anxiety: Yes Hx Depression: Yes Hx Substance Use: No - SURGICAL HISTORY Hx Appendectomy: Yes Hx Pulmonary Surgery: Yes (h/o thymectomy in October 2017) - ANESTHESIA Hx Anesthesia: Yes Hx Anesthesia Reactions: Yes (TROUBLE WAKING) Hx Malignant Hyperthermia: No Meds Allergies/Adverse Reactions: Allergies Allergy/AdvReac Type Severity Reaction Status Date / Time cephalexin [From Keflex] Allergy Severe RASH Verified 01/10/18 07:51 codeine Allergy Severe RASH/SOB Verified 01/10/18 07:51 Iodine and Iodide Containing Allergy Severe ANAPHYLAXIS Verified 01/10/18 07:51 Produc latex Allergy Severe ANAPHYLAXIS Verified 01/10/18 07:51 peanut Allergy Severe ANAPHYLAXIS Verified 01/10/18 07:51 Penicillins Allergy Severe RASH/SOB Verified 01/10/18 07:51 shellfish derived Allergy ANAPHYLAXIS Verified 01/10/18 07:51 - Medications Medications: Current Medications Acetaminophen (Tylenol 325mg Tab) 650 mg PO Q6H PRN PRN Reason: Pain, Mild (1-3) Last Admin: 01/11/18 11:54 Dose: 650 mg Albuterol Sulfate (Albuterol 0.083% Inhal Sanjuana (2.5 Mg/3 Ml) Ud) 2.5 mg IH 0800, 1400,2000 [facility] Last Admin: 01/13/18 07:47 Dose: 2.5 mg Diphenhydramine HCl (Benadryl) 50 mg IVP Q4H PRN PRN Reason: Allergy symptoms Last Admin: 01/11/18 11:55 Dose: 50 mg Heparin Sodium (Porcine) (Heparin) 5,000 units SC Q8 ANNIE PRN Reason: Protocol Last Admin: 01/12/18 21:11 Dose: 5,000 units Home Med (Home Med) 1 unit PO 2300 [facility] Last Admin: 01/12/18 22:36 Dose: 1 unit Aztreonam (Azactam 1 Gm) 100 mls @ 100 mls/hr IVPB Q8 ANNIE PRN Reason: Protocol Last Admin: 01/13/18 05:21 Dose: 100 mls/hr Ondansetron HCl (Zofran Inj) 4 mg IVP 0500,1100,1700,2300 PRN PRN Reason: Nausea/Vomiting Last Admin: 01/13/18 05:07 Dose: 4 mg Pantoprazole Sodium (Protonix Inj) 20 mg IVP 0500,1100,1700 [facility] Last Admin: 01/13/18 10:01 Dose: 20 mg Pantoprazole Sodium (Protonix Inj) 40 mg IVP Q24H [facility] Last Admin: 01/11/18 22:56 Dose: 40 mg Prednisone (Prednisone Tab) 60 mg PO DAILY [facility] Last Admin: 01/13/18 10:01 Dose: 60 mg Pyridostigmine [place] (Mestinon Tab) 60 mg PO 0500,1100,1700 [facility] Last Admin: 01/13/18 10:02 Dose: 60 mg Physical Exam - Head Exam Head Exam: NORMAL INSPECTION - Eye Exam Eye Exam: EOMI Additional comments: ptosis of the left eye - Respiratory Exam Respiratory Exam: Decreased Breath Sounds Additional comments: decreased breath sounds at right lung base - Cardiovascular Exam Cardiovascular Exam: REGULAR RHYTHM - GI/Abdominal Exam GI & Abdominal Exam: Normal Bowel Sounds - Neurological Exam Neurological exam: Oriented x3 Additional comments: numbness in right trigeminal nerve, 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, right lower extremity strength is 4/5 Results - Vital Signs Recent Vital Signs: Last Vital Signs Temp 97.3 F L 01/12/18 16:00 Pulse 58 L 01/13/18 10:00 Resp 30 H 01/12/18 18:00 BP 143/79 01/12/18 18:00 Pulse Ox 94 L 01/12/18 18:00 - Labs Result Diagrams: 01/13/18 05:40 01/13/18 05:40 Labs: Laboratory Results - last 24 hr 01/13/18 01/13/18 05:40 05:40 WBC 14.3 H RBC 3.42 L Hgb 10.2 L Hct 31.0 L MCV 90.6 MCH 29.8 MCHC 32.9 RDW 18.5 H Plt Count 392 MPV 9.1 Gran % 86.9 H Lymph % (Auto) 8.9 L Gilmer % (Auto) 4.1 Eos % (Auto) 0.0 L Baso % (Auto) 0.1 Gran # 12.43 H Lymph # (Auto) 1.3 Gilmer # (Auto) 0.6 Eos # (Auto) 0.0 Baso # (Auto) 0.01 Sodium 143 Potassium 4.0 Chloride 112 H Carbon Dioxide 25 Anion Gap 10 BUN 23 H Creatinine 0.7 Est GFR ( Amer) > 60 Est GFR (Non-Af Amer) > 60 Random Glucose 125 H Calcium 9.1 Total Bilirubin 1.2 AST 50 H D ALT 59 H Alkaline Phosphatase 62 Total Protein 8.9 H Albumin 3.7 Globulin 5.2 Albumin/Globulin Ratio 0.7 L Assessment & Plan - Assessment and Plan (Free Text) Assessment: Ms Unger is a 47 year old female with 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 She is status post thymectomy in October of 2017. Unfortunately, despite her surgery, her myasthenia gravis is getting worse requiring hospitalizations. She is on steroids and IVIG therapy. We have requested her records from Dr Dixon office. 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 Also, her recurrent pleural effusions may be related to this as well based on the atypical cells found in the cytology. As we explained to the patient, we would agree with your discussion that a combined approach may be prudent since aggressive treatment of the persistent thymoma is the necessary step to addressing her recalcitrant myasthenia gravis. If the thymoma had been truly encapsulated, one would have thought that the myasthenia gravis would have improved. She is concerned about her pulmonary function and potential effects that radiation therapy could have on this. We did speak with her about the option of VMAT radiation therapy for highly conformal therapy to mediastinal nodes to minimize radiation to the neighboring critical structures. We did address her question about proton therapy which may have slight advantages in reducing the lung dose more than photon therapy given the Jonathan peak characteristics of protons. She did mention that the plus of photon therapy is the close proximity to her house. We did mention that a PET scan may have value in helping identify sites of residual disease for planning purposes.
--- NOTE | 2018-01-13 13:32 | CP.CCUPN ---
<Amelie OsorioAlisha - Last Filed: 01/13/18 13:28> CCU Subjective - Physician Review Subjective (Free Text): 01/13/18 13:28 Breathing better. Strength improves. OOB this am, on PA CCU Objective - Vital Signs / Intake & Output Vital Signs (Last 4 hours): Vital Signs Pulse 01/13/18 10:00 58 L Intake and Output (Last 8hrs): Intake & Output 01/12/18 01/13/18 01/13/18 22:59 06:59 14:59 Intake Total 840 300 Output Total 700 650 Balance 140 -350 Intake: IV 300 Right Wrist 300 Oral 840 Output: Urine 700 650 Urine, Voided 700 650 Other: # Voids Urine, Voided 1 # Bowel Movements 1 1 - Physical Exam Head: Positive for: Atraumatic, Normocephalic Respiratory/Chest: Positive for: Clear to Auscultation, Decreased Breath Sounds (R lung). Negative for: Rales, Retracting, Rhonchi Cardiovascular: Positive for: Regular Rate and Rhythm, Normal S1, S2, Other ( rash gone) Lower Extremity: Positive for: Edema. 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, right lower extremity strength 4/5) Skin: Positive for: Warm, Dry Psychiatric: Positive for: Alert, Oriented x 3 - Medications Active Medications: Active Medications Generic Name Dose Route Start Last Admin Trade Name Freq PRN Reason Stop Dose Admin Acetaminophen 650 mg 01/11/18 11:24 01/11/18 11:54 Tylenol 325mg Tab PO 650 mg Q6H PRN Administration Pain, Mild (1-3) Albuterol Sulfate 2.5 mg 01/13/18 08:00 01/13/18 07:47 Albuterol 0.083% Inhal Sanjuana (2.5 Mg/3 Ml) Ud IH 2.5 mg 0800,1400,2000 ANNIE Administration Diphenhydramine HCl 50 mg 01/10/18 18:03 01/11/18 11:55 Benadryl IVP 50 mg Q4H PRN Administration Allergy symptoms Heparin Sodium (Porcine) 5,000 units 01/10/18 14:00 01/12/18 21:11 Heparin SC 5,000 units Q8 ANNIE Administration Protocol Home Med 1 unit 01/11/18 23:00 01/12/18 22:36 Home Med PO 1 unit 2300 ANNIE Administration Aztreonam 100 mls @ 100 mls/hr 01/10/18 22:00 01/13/18 05:21 Azactam 1 Gm IVPB 100 mls/hr Q8 ANNIE Administration Protocol Ondansetron HCl 4 mg 01/10/18 16:19 01/13/18 05:07 Zofran Inj IVP 4 mg 0500,1100,1700,2300 PRN Administration Nausea/Vomiting Pantoprazole Sodium 20 mg 01/10/18 17:00 01/13/18 10:01 Protonix Inj IVP 20 mg 0500,1100,1700 ANNIE Administration Pantoprazole Sodium 40 mg 01/11/18 23:00 01/11/18 22:56 Protonix Inj IVP 40 mg Q24H ANNIE Administration Prednisone 60 mg 01/13/18 10:00 01/13/18 10:01 Prednisone Tab PO 60 mg DAILY ANNIE Administration Pyridostigmine [place] 60 mg 01/10/18 17:00 01/13/18 10:02 Mestinon Tab PO 60 mg 0500,1100,1700 ANNIE Administration - Patient Studies Lab Studies: Lab Studies 01/13/18 01/13/18 Range/Units 05:40 05:40 WBC 14.3 H (4.5-11.0) 10^3/ul RBC 3.42 L (3.5-6.1) 10^6/uL Hgb 10.2 L (12.0-16.0) g/dL Hct 31.0 L (36.0-48.0) % MCV 90.6 (80.0-105.0) fl MCH 29.8 (25.0-35.0) pg MCHC 32.9 (31.0-37.0) g/dl RDW 18.5 H (11.5-14.5) % Plt Count 392 (120.0-450.0) 10^3/uL MPV 9.1 (7.0-11.0) fl Gran % 86.9 H (50.0-68.0) % Lymph % (Auto) 8.9 L (22.0-35.0) % [place] % (Auto) 4.1 (1.0-6.0) % Eos % (Auto) 0.0 L (1.5-5.0) % Baso % (Auto) 0.1 (0.0-3.0) % Gran # 12.43 H (1.4-6.5) Lymph # (Auto) 1.3 (1.2-3.4) [place] # (Auto) 0.6 (0.1-0.6) Eos # (Auto) 0.0 (0.0-0.7) Baso # (Auto) 0.01 (0.0-2.0) K/mm3 Sodium 143 (132-148) mmol/L Potassium 4.0 (3.6-5.0) mmol/L Chloride 112 H (98-107) mmol/L Carbon Dioxide 25 (21-33) mmol/L Anion Gap 10 (10-20) BUN 23 H (7-21) mg/dL Creatinine 0.7 (0.7-1.2) mg/dl Est GFR ( Amer) > 60 Est GFR (Non-Af Amer) > 60 Random Glucose 125 H (70-110) mg/dL Calcium 9.1 (8.4-10.5) mg/dL Total Bilirubin 1.2 (0.2-1.3) mg/dL AST 50 H D (14-36) U/L ALT 59 H (7-56) U/L Alkaline Phosphatase 62 (38-126) U/L Total Protein 8.9 H (5.8-8.3) g/dL Albumin 3.7 (3.0-4.8) g/dL Globulin 5.2 gm/dL Albumin/Globulin Ratio 0.7 L (1.1-1.8) Laboratory Results - last 24 hr 01/13/18 01/13/18 05:40 05:40 WBC 14.3 H RBC 3.42 L Hgb 10.2 L Hct 31.0 L MCV 90.6 MCH 29.8 MCHC 32.9 RDW 18.5 H Plt Count 392 MPV 9.1 Gran % 86.9 H Lymph % (Auto) 8.9 L [place] % (Auto) 4.1 Eos % (Auto) 0.0 L Baso % (Auto) 0.1 Gran # 12.43 H Lymph # (Auto) 1.3 [place] # (Auto) 0.6 Eos # (Auto) 0.0 Baso # (Auto) 0.01 Sodium 143 Potassium 4.0 Chloride 112 H Carbon Dioxide 25 Anion Gap 10 BUN 23 H Creatinine 0.7 Est GFR ( Amer) > 60 Est GFR (Non-Af Amer) > 60 Random Glucose 125 H Calcium 9.1 Total Bilirubin 1.2 AST 50 H D ALT 59 H Alkaline Phosphatase 62 Total Protein 8.9 H Albumin 3.7 Globulin 5.2 Albumin/Globulin Ratio 0.7 L Critical Care Progress Note - Nutrition Nutrition: Nutrition Category Date Time Status Regular Diet [DIET] Diets 01/11/18 Lunch Ordered Assessment/Plan - Assessment and Plan (Free Text) Plan: Ms Unger, 47 F, 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 She was discharged 3 weeks ago, not on the prednisone 60mg that she was discharged with due to side effect of edema. Last IVIG infusion was 2 weeks ago. Today, pt has worsening dyspneic on exertion and extreme fatique. She had chronic chest tightness from pleural effusion but the chest tightness was worsened. Diplopia, motor weakness, paresthsia, dysphagia all worsened today. She is likely having a myasthenia gravis exacerbation. In the ED, FVC is 700cc ( 13 ml/kg). NIF is negative 30 cm H2O. Her R pleural effusion is worsened over the weekend, requiring bipap. now pt is on PA Neuro - Myasthenia gravis crisis resolved - Got 2g IVIG - FVC improves from 700cc to 900cc - NIF improves from -30 to -40 - Pyridostigmine IR @ 0500, 1100, 1700; Pyridostigmine ER (home med) @ 2300 - Taper to - PT, OT, ST Pulm - recommend thoracentesis - f/u Dr. Hunt for VATS for possible thymoma remnant. - Rad Onc suggested PET - Albuterol TID Cardio - Atypical chest pain from R pleural effusion - Serial Trops neg x 2 - BP normal - bradycardia improves GI - tolerate diet; soft, 6 small meals - U/O approriate Endo - Hgb A1C 4.6 - TSH 0.20 - lipid panel - Tri 220/Chol 227/LDL 115/HDL42 ID - R lower lobe infiltrate vs pneumonia - Aztrenam. Off doxy - The in mid chest rash can be secondary to Meropenem or IVIG - resolved Prophylactic Care - Protonix, Heparin - Diet: Reg consistency, 6 small meals w/ thin liquids - aspiration precautions , per speech Dispo plan - downgrade to Tele - Neuro clear pt to go home s/r/d/w Dr. Elena <Lauro Elena - Last Filed: 01/13/18 15:04> CCU Objective - Vital Signs / Intake & Output Vital Signs (Last 4 hours): Vital Signs Pulse 01/13/18 14:00 71 Intake and Output (Last 8hrs): Intake & Output 01/13/18 01/13/18 01/13/18 06:59 14:59 22:59 Intake Total 300 200 Output Total 650 Balance -350 200 Intake: IV 300 200 Left Forearm 200 Right Wrist 300 Output: Urine 650 Urine, Voided 650 Other: # Bowel Movements 1 - Medications Active Medications: Active Medications Generic Name Dose Route Start Last Admin Trade Name Freq PRN Reason Stop Dose Admin Acetaminophen 650 mg 01/11/18 11:24 01/11/18 11:54 Tylenol 325mg Tab PO 650 mg Q6H PRN Administration Pain, Mild (1-3) Albuterol Sulfate 2.5 mg 01/13/18 08:00 01/13/18 13:33 Albuterol 0.083% Inhal Sanjuana (2.5 Mg/3 Ml) Ud IH 2.5 mg 0800,1400,2000 ANNIE Administration Diphenhydramine HCl 50 mg 01/10/18 18:03 01/11/18 11:55 Benadryl IVP 50 mg Q4H PRN Administration Allergy symptoms Heparin Sodium (Porcine) 5,000 units 01/10/18 14:00 01/13/18 13:25 Heparin SC 5,000 units Q8 ANNIE Administration Protocol Home Med 1 unit 01/11/18 23:00 01/12/18 22:36 Home Med PO 1 unit 2300 ANNIE Administration Aztreonam 100 mls @ 100 mls/hr 01/10/18 22:00 01/13/18 13:26 Azactam 1 Gm IVPB 100 mls/hr Q8 ANNIE Administration Protocol Ondansetron HCl 4 mg 01/10/18 16:19 01/13/18 05:07 Zofran Inj IVP 4 mg 0500,1100,1700,2300 PRN Administration Nausea/Vomiting Pantoprazole Sodium 20 mg 01/10/18 17:00 01/13/18 10:01 Protonix Inj IVP 20 mg 0500,1100,1700 ANNIE Administration Pantoprazole Sodium 40 mg 01/11/18 23:00 01/11/18 22:56 Protonix Inj IVP 40 mg Q24H ANNIE Administration Prednisone 60 mg 01/13/18 10:00 01/13/18 10:01 Prednisone Tab PO 60 mg DAILY ANNIE Administration Pyridostigmine [place] 60 mg 01/10/18 17:00 01/13/18 10:02 Mestinon Tab PO 60 mg 0500,1100,1700 ANNIE Administration - Patient Studies Lab Studies: Lab Studies 01/13/18 01/13/18 Range/Units 05:40 05:40 WBC 14.3 H (4.5-11.0) 10^3/ul RBC 3.42 L (3.5-6.1) 10^6/uL Hgb 10.2 L (12.0-16.0) g/dL Hct 31.0 L (36.0-48.0) % MCV 90.6 (80.0-105.0) fl MCH 29.8 (25.0-35.0) pg MCHC 32.9 (31.0-37.0) g/dl RDW 18.5 H (11.5-14.5) % Plt Count 392 (120.0-450.0) 10^3/uL MPV 9.1 (7.0-11.0) fl Gran % 86.9 H (50.0-68.0) % Lymph % (Auto) 8.9 L (22.0-35.0) % [place] % (Auto) 4.1 (1.0-6.0) % Eos % (Auto) 0.0 L (1.5-5.0) % Baso % (Auto) 0.1 (0.0-3.0) % Gran # 12.43 H (1.4-6.5) Lymph # (Auto) 1.3 (1.2-3.4) [place] # (Auto) 0.6 (0.1-0.6) Eos # (Auto) 0.0 (0.0-0.7) Baso # (Auto) 0.01 (0.0-2.0) K/mm3 Sodium 143 (132-148) mmol/L Potassium 4.0 (3.6-5.0) mmol/L Chloride 112 H (98-107) mmol/L Carbon Dioxide 25 (21-33) mmol/L Anion Gap 10 (10-20) BUN 23 H (7-21) mg/dL Creatinine 0.7 (0.7-1.2) mg/dl Est GFR ( Amer) > 60 Est GFR (Non-Af Amer) > 60 Random Glucose 125 H (70-110) mg/dL Calcium 9.1 (8.4-10.5) mg/dL Total Bilirubin 1.2 (0.2-1.3) mg/dL AST 50 H D (14-36) U/L ALT 59 H (7-56) U/L Alkaline Phosphatase 62 (38-126) U/L Total Protein 8.9 H (5.8-8.3) g/dL Albumin 3.7 (3.0-4.8) g/dL Globulin 5.2 gm/dL Albumin/Globulin Ratio 0.7 L (1.1-1.8) Laboratory Results - last 24 hr 01/13/18 01/13/18 05:40 05:40 WBC 14.3 H RBC 3.42 L Hgb 10.2 L Hct 31.0 L MCV 90.6 MCH 29.8 MCHC 32.9 RDW 18.5 H Plt Count 392 MPV 9.1 Gran % 86.9 H Lymph % (Auto) 8.9 L [place] % (Auto) 4.1 Eos % (Auto) 0.0 L Baso % (Auto) 0.1 Gran # 12.43 H Lymph # (Auto) 1.3 [place] # (Auto) 0.6 Eos # (Auto) 0.0 Baso # (Auto) 0.01 Sodium 143 Potassium 4.0 Chloride 112 H Carbon Dioxide 25 Anion Gap 10 BUN 23 H Creatinine 0.7 Est GFR ( Amer) > 60 Est GFR (Non-Af Amer) > 60 Random Glucose 125 H Calcium 9.1 Total Bilirubin 1.2 AST 50 H D ALT 59 H Alkaline Phosphatase 62 Total Protein 8.9 H Albumin 3.7 Globulin 5.2 Albumin/Globulin Ratio 0.7 L Critical Care Progress Note - Nutrition Nutrition: Nutrition Category Date Time Status Regular Diet [DIET] Diets 01/11/18 Lunch Ordered Assessment/Plan - Assessment and Plan (Free Text) Plan: Patient seen and examined on rounds with resident, agree with note with following additions/exceptions: Patient is 47yo female with PMhx of MG, 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
--- NOTE | 2018-01-13 14:07 | CP.PCM.PN ---
Subjective - Date & Time of Evaluation Date of Evaluation: 01/13/18 Time of Evaluation: 13:00 - Subjective Subjective: DATE: 01/13/2018 NEUROLOGY FOLLOWUP CHIEF COMPLAINT: Follow up for myasthenia gravis. SUBJECTIVE: The patient is seen and examined at bedside, no longer having a head bobbing. Ptosis of the left eye is much better. She is able to chew and swallow her food and very minimal proximal muscle weakness. She is no longer having head drop. She is doing much better. No need for plasmapheresis at this time. PAST MEDICAL HISTORY: History of myasthenia gravis, status post thymectomy. REVIEW OF SYSTEMS: Fourteen-point review of systems negative except as per the HPI. SOCIAL HISTORY: No illicit drug use, smoking or EtOH abuse. ALLERGIES: NOTED TO CEPHALEXIN, CODEINE IV CONTAINING PRODUCTS. FAMILY HISTORY: Noncontributory. MEDICATIONS: Reviewed by nurse reconciliation sheet. PHYSICAL EXAMINATION: VITAL SIGNS: Reviewed. GENERAL: The patient is sitting up in bed, no acute distress. HEENT: Atraumatic, normocephalic. PERRLA. Extraocular muscles intact. NECK: Supple. No JVD. No adenopathy noted. LUNGS: Clear to auscultation. No adventitious sounds. HEART: S1, S2. Normal rate and rhythm. No murmurs, rubs or gallops. ABDOMEN: Soft, nontender and nondistended. Bowel sounds are present. EXTREMITIES: No clubbing. No cyanosis. Peripheral pulses 2+ felt bilaterally. NEUROLOGIC: The patient is alert and oriented to person, place, month and year. Speech is fluent without any errors. Cranial nerves II through XII intact. There is minimal left-sided ptosis, which is much better thanprior. No longer head dropping. Very slight weakness of the platysma. Moves all extremities equally. No proximal muscle weakness in the extremities seen. Sensory exam: Light touch, pinprick, proprioception and vibration are intact. DTRs are 2+ throughout. Coordination: [id number] intact. No dysmetria noted. Gait is deferred for now. LABORATORY DATA: Reviewed.. ASSESSMENT AND PLAN: This is a 47-year-old woman with past medical history of myasthenia gravis, status post thymoma, status post thymectomy, status post recurrent pleural effusions with myasthenia crisis in 11/2017 intravenous immunoglobulin, was admitted to the [facility], intubated and 5 thoracocentesis and intravenous immunoglobulin was given. She was discharged 3 weeks ago and was placed on prednisone 50 mg p.o. every other day in addition to intravenous immunoglobulin 1 g/kg for 2 days every 3 weeks, in addition to Mestinon 60 mg t.i.d. and 180 mg at bedtime extended release. She came in for worsening shortness of breath on exertion, extreme fatigue, diplopia and head dropping and is now status post myasthenia exacerbation. She is doing much better today after one dose of 1 g/kg of intravenous immunoglobulin. She is doing better compared to her initial presentation. Continue with her current doses of Mestinon as well as prednisone 50 mg po every other day. F/u with Dr. Garibay her neurologist as outpatient. F/U with Oncologist as outpatient. Thank you for this followup. Rito Cardozo MD Objective - Vital Signs/Intake and Output Vital Signs (last 24 hours): Temp Pulse Resp BP Pulse Ox 97.3 F L 58 L 30 H 143/79 94 L 01/12/18 16:00 01/13/18 10:00 01/12/18 18:00 01/12/18 18:00 01/12/18 18:00 Intake and Output: 01/13/18 01/13/18 06:59 18:59 Intake Total 300 Output Total 650 Balance -350 - Medications Medications: Current Medications Acetaminophen (Tylenol 325mg Tab) 650 mg PO Q6H PRN PRN Reason: Pain, Mild (1-3) Last Admin: 01/11/18 11:54 Dose: 650 mg Albuterol Sulfate (Albuterol 0.083% Inhal [place] (2.5 Mg/3 Ml) Ud) 2.5 mg IH 0800, 1400,2000 ANNIE Last Admin: 01/13/18 13:33 Dose: 2.5 mg Diphenhydramine HCl (Benadryl) 50 mg IVP Q4H PRN PRN Reason: Allergy symptoms Last Admin: 01/11/18 11:55 Dose: 50 mg Heparin Sodium (Porcine) (Heparin) 5,000 units SC Q8 ANNIE PRN Reason: Protocol Last Admin: 01/13/18 13:25 Dose: 5,000 units Home Med (Home Med) 1 unit PO 2300 [facility] Last Admin: 01/12/18 22:36 Dose: 1 unit Aztreonam (Azactam 1 Gm) 100 mls @ 100 mls/hr IVPB Q8 ANNIE PRN Reason: Protocol Last Admin: 01/13/18 13:26 Dose: 100 mls/hr Ondansetron HCl (Zofran Inj) 4 mg IVP 0500,1100,1700,2300 PRN PRN Reason: Nausea/Vomiting Last Admin: 01/13/18 05:07 Dose: 4 mg Pantoprazole Sodium (Protonix Inj) 20 mg IVP 0500,1100,1700 [facility] Last Admin: 01/13/18 10:01 Dose: 20 mg Pantoprazole Sodium (Protonix Inj) 40 mg IVP Q24H [facility] Last Admin: 01/11/18 22:56 Dose: 40 mg Prednisone (Prednisone Tab) 60 mg PO DAILY [facility] Last Admin: 01/13/18 10:01 Dose: 60 mg Pyridostigmine [place] (Mestinon Tab) 60 mg PO 0500,1100,1700 [facility] Last Admin: 01/13/18 10:02 Dose: 60 mg - Labs Labs: 01/13/18 05:40 01/13/18 05:40 PT 11.1 SECONDS (9.4-12.5) 01/10/18 08:32 INR 0.97 (0.93-1.08) 01/10/18 08:32 APTT 18.5 Seconds (25.1-36.5) L 01/10/18 08:32
--- NOTE | 2018-01-13 15:35 | PN ---
DATE: 01/13/2018 SUBJECTIVE: The patient denies any shortness of breath. No reported significant bradycardia. No dizziness. His morning heart rate was 60 and then 58. PHYSICAL EXAMINATION: VITAL SIGNS: Blood pressure 140/79, heart rate 65, temperature 97.3, respirations 21. HEENT: Normocephalic. CHEST: Clear. HEART: S1 and S2 regular. EXTREMITIES: No edema. LABORATORY DATA: Hemoglobin and hematocrit 10.1 and 31, white count 14.3, platelet count 392,000. SMA-7 is within normal limits except for glucose of 125, chloride of 112, and BUN of 23. ASSESSMENT: 1. Improved sinus bradycardia. 2. Myasthenia gravis status post thymectomy. 3. Moderate right pleural effusion. RECOMMENDATIONS: Continue current Azactam at 1 g every 8 hours, doxycycline at 100 mg intravenously every 12 hours, subcutaneous heparin 5000 units every 8 hours. Obtain a follow up chest x-ray with right lateral views. Obtain an echocardiogram. Gianluca Gomes MD
--- NOTE | 2018-01-13 18:28 | CARD ---
APPROVED REPORT EXAM: Two-dimensional and M-mode echocardiogram with Doppler and color Doppler. INDICATION BRADYCARDIA 2D DIMENSIONS Left Atrium (2D)3.3 (1.6-4.0cm)IVSd0.9 (0.7-1.1cm) LVDd4.0 (3.9-5.9cm)PWd1.1 (0.7-1.1cm) LVDs2.5 (2.5-4.0cm)FS (%) 38.6 % LVEF (%)69.5 (>50%) M-Mode DIMENSIONS Aortic Root2.20 (2.2-3.7cm)Aortic Cusp Exc.1.50 (1.5-2.0cm) Aortic Valve AoV Peak Dtthogka068.0cm/Shruti Peak GR.12mmHg Mitral Valve MV E Zohyvzxl115.0cm/sMV A Rtjxwasx006.0cm/sE/A ratio1.3 TDI E/Lateral E'0.0E/Medial E'0.0 Tricuspid Valve TR Peak Gmganszz225tu/sRAP [id number] Peak Gr.32mmHg [id number] LEFT VENTRICLE The left ventricle is normal size. There is normal left ventricular wall thickness. The left ventricular function is normal. The left ventricular ejection fraction is within the normal range. There is normal LV segmental wall motion. The left ventricular diastolic function is normal. RIGHT VENTRICLE The right ventricle is normal size. There is normal right ventricular wall thickness. The right ventricular systolic function is normal. ATRIA The left atrium size is normal. The right atrium size is normal. AORTIC VALVE The aortic valve is normal in structure. There is trace aortic regurgitation. There is no aortic valvular stenosis. MITRAL VALVE The mitral valve is normal in structure. Mitral regurgitation is trace. There is no mitral valve stenosis. TRICUSPID VALVE There is mild tricuspid regurgitation. There is mild pulmonary hypertension. GREAT VESSELS The aortic root is normal in size. The IVC collapses <50% with inspiration. PERICARDIAL EFFUSION There is no pericardial effusion. <Conclusion> The left ventricle is normal size. There is normal left ventricular wall thickness. The left ventricular function is normal. The left ventricular ejection fraction is within the normal range. There is normal LV segmental wall motion. The left ventricular diastolic function is normal. There is mild tricuspid regurgitation. There is mild pulmonary hypertension.
--- NOTE | 2018-01-13 18:41 | CP.PCM.PN ---
Subjective - Date & Time of Evaluation Date of Evaluation: 01/13/18 Time of Evaluation: 18:00 - Subjective Subjective: Infectious Disease Follow Up: January 13, 2018 47 yo female with recent thymoma surgery and myasthenia gravis with myasthenia crisis in November 2017. SOB. On IVIG for myasthenia gravis treatment. The patient was trying to stop her 4 dogs from fighting and became dyspneic and fatigued. The patient was admitted to the MICU. The patient has PCN allergies that lead to rash, swelling, and closing of the throat. She is currently on nasal cannula. The patient again had shortness of breath episodes overnight. She improved with Lasix administration. The patient is still overall weak and becomes SOB with light exertion and even on speaking. She is being evaluated by Oncology and Radiation Oncology for further treatement of the thymoma. Objective - Vital Signs/Intake and Output Vital Signs (last 24 hours): Temp Pulse Resp BP Pulse Ox 97.3 F L 66 30 H 143/79 94 L 01/12/18 16:00 01/13/18 18:00 01/12/18 18:00 01/12/18 18:00 01/12/18 18:00 Intake and Output: 01/13/18 01/13/18 06:59 18:59 Intake Total 300 200 Output Total 650 Balance -350 200 - Medications Medications: Current Medications Acetaminophen (Tylenol 325mg Tab) 650 mg PO Q6H PRN PRN Reason: Pain, Mild (1-3) Last Admin: 01/11/18 11:54 Dose: 650 mg Albuterol Sulfate (Albuterol 0.083% Inhal [place] (2.5 Mg/3 Ml) Ud) 2.5 mg IH 0800, 1400,2000 [facility] Last Admin: 01/13/18 13:33 Dose: 2.5 mg Diphenhydramine HCl (Benadryl) 50 mg IVP Q4H PRN PRN Reason: Allergy symptoms Last Admin: 01/11/18 11:55 Dose: 50 mg Heparin Sodium (Porcine) (Heparin) 5,000 units SC Q8 ANNIE PRN Reason: Protocol Last Admin: 01/13/18 13:25 Dose: 5,000 units Home Med (Home Med) 1 unit PO 2300 [facility] Last Admin: 01/12/18 22:36 Dose: 1 unit Aztreonam (Azactam 1 Gm) 100 mls @ 100 mls/hr IVPB Q8 [facility] PRN Reason: Protocol Last Admin: 01/13/18 13:26 Dose: 100 mls/hr Ondansetron HCl (Zofran Inj) 4 mg IVP 0500,1100,1700,2300 PRN PRN Reason: Nausea/Vomiting Last Admin: 01/13/18 05:07 Dose: 4 mg Pantoprazole Sodium (Protonix Inj) 20 mg IVP 0500,1100,1700 [facility] Last Admin: 01/13/18 16:34 Dose: 20 mg Pantoprazole Sodium (Protonix Inj) 40 mg IVP Q24H [facility] Last Admin: 01/11/18 22:56 Dose: 40 mg Prednisone (Prednisone Tab) 60 mg PO DAILY [facility] Last Admin: 01/13/18 10:01 Dose: 60 mg Pyridostigmine [place] (Mestinon Tab) 60 mg PO 0500,1100,1700 [facility] Last Admin: 01/13/18 16:34 Dose: 60 mg - Labs Labs: 01/13/18 05:40 01/13/18 05:40 PT 11.1 SECONDS (9.4-12.5) 01/10/18 08:32 INR 0.97 (0.93-1.08) 01/10/18 08:32 APTT 18.5 Seconds (25.1-36.5) L 01/10/18 08:32 - Constitutional Appears: Non-toxic, No Acute Distress, Chronically Ill - Head Exam Head Exam: ATRAUMATIC, NORMOCEPHALIC - Eye Exam Eye Exam: EOMI, PERRL Pupil Exam: NORMAL ACCOMODATION, PERRL - ENT Exam ENT Exam: Mucous Membranes Moist, Normal External Ear Exam, TM's Normal Bilaterally - Neck Exam Neck Exam: Full ROM, Normal Inspection - Respiratory Exam Respiratory Exam: Decreased Breath Sounds, NORMAL BREATHING PATTERN. absent: Rales, Rhonchi, Wheezes - Cardiovascular Exam Cardiovascular Exam: REGULAR RHYTHM, RRR, +S1, +S2 - GI/Abdominal Exam GI & Abdominal Exam: Soft, Normal Bowel Sounds. absent: Distended, Tenderness - Extremities Exam Extremities Exam: Normal Capillary Refill, Normal Inspection - Neurological Exam Neurological Exam: Alert, Awake, CN II-XII Intact, Oriented x3 - Psychiatric Exam Psychiatric exam: Normal Affect, Normal Mood - Skin Skin Exam: Intact, Normal Color Assessment and Plan - Assessment and Plan (Free Text) Assessment: 47 yo female with SOB and dyspnea occuring when trying to stop her 4 dogs from fighting. The patient has a history of myasthenia gravis on IVIG for treatment. The patient was admitted to MICU for evaluation and monitoring. Started on meropenem but patient has a PCN allergy. Right lower lobe infiltrate... questionable pneumonia. Given reaction history to PCN, I would switch to Aztreonam for now. Can continue with doxycycline. CT chest pending. Continue Bendaryl and solumedrol. Rash on chest around scar area... rash not present before hospitalization. The rash can be secondary to Meropenem or IVIG. Continue on Aztreonam. Had SOB episodes overnight. Remains SOB on light exertion. Cultures currently negative. Evaluation with Oncology and Radiation Oncology regarding further treatment of the thymoma. Currently on Aztreonam and Doxycycline which can be maintained while patient is in the hospital. Supportive care. Thank you for allowing me to participate in the care of the patient, we will follow with you.
--- NOTE | 2018-01-13 20:30 | CON ---
DATE: 01/13/2018 TIME: 11:00 a.m. CHIEF COMPLAINT AND HISTORY OF PRESENT ILLNESS: I know Ms. Ruggiero from previous admissions and USG thoracentesis. She had a large thymoma, recently removed and had a thoracentesis in November postoperatively. She is admitted once again with significant shortness of breath. Her imaging demonstrates severe elevation of the right hemidiaphragm and a small amount of right pleural fluid on CT scan. In November, she had a similar scenario and thoracentesis was performed. Only 350 mL of fluid was obtained. The fluid has not increased significantly since that time. Her central airways are patent. I do not believe Ms. Unger would benefit from a therapeutic thoracentesis at this time. Her symptoms are likely related to the marked elevation of the right hemidiaphragm and her history of myasthenia gravis. No thoracentesis will be performed at this point. Additional imaging can be obtained if the right pleural effusion increases in size. Loy Newman MD MTDD
[2018-01-13] MEDS: PYRIDOSTIGMINE 180 MG PO SCH (22:40)
[2018-01-14 06:51] LABS: BASO # 0.02 K/mm3 (0.0-2.0); BASO % 0.2 % (0.0-3.0); EOS % 0.1 % (1.5-5.0); GRAN # 8.44 (1.4-6.5); HEMOGLOBIN 10.6 g/dL (12.0-16.0); LYMPH % 16.1 % (22.0-35.0); MEAN CELL VOLUME 90.4 fl (80.0-105.0); MEAN CORPUSCULAR HEMOGLOBIN 29.9 pg (25.0-35.0); MEAN CORPUSCULAR HGB CONC 33.1 g/dl (31.0-37.0); MEAN PLATELET VOLUME 8.9 fl (7.0-11.0); MONO # 1.9 (0.1-0.6); MONO % 15.6 % (1.0-6.0); RBC 3.54 10^6/uL (3.5-6.1); RED CELL DISTRIBUTION WIDTH 17.9 % (11.5-14.5); WHITE BLOOD COUNT 12.4 10^3/ul (4.5-11.0)
[2018-01-14] MEDS: Albuterol 0.083% Inhal Sol (2.5 mg/3 mL) UD IH SCH (07:07)
[2018-01-14 07:26] VITALS: BP 153/118; PULSE 50; RESP 47; O2SAT 100
[2018-01-14 07:56] LABS: ALB/GLOB RATIO 0.7 (1.1-1.8); ALBUMIN 3.4 g/dL (3.0-4.8); ALT/SGPT 57 U/L (7-56); AST/SGOT 34 U/L (14-36); BLOOD UREA NITROGEN 24 mg/dL (7-21); CALCIUM 8.7 mg/dL (8.4-10.5); GFR AFRICAN-AMERICAN > 60; GFR NON-AFRICAN AMERICAN > 60
--- NOTE | 2018-01-14 08:08 | CP.PCM.PN ---
Objective - Vital Signs/Intake and Output Vital Signs (last 24 hours): Temp Pulse Resp BP Pulse Ox 97.3 F L 50 L 47 H 153/118 H 100 01/12/18 16:00 01/14/18 07:00 01/14/18 07:00 01/14/18 07:00 01/14/18 07:00 Intake and Output: 01/14/18 01/14/18 06:59 18:59 Intake Total 340 Balance 340 - Medications Medications: Current Medications Acetaminophen (Tylenol 325mg Tab) 650 mg PO Q6H PRN PRN Reason: Pain, Mild (1-3) Last Admin: 01/11/18 11:54 Dose: 650 mg Albuterol Sulfate (Albuterol 0.083% Inhal Sanjuana (2.5 Mg/3 Ml) Ud) 2.5 mg IH 0800, 1400,2000 [facility] Last Admin: 01/14/18 07:07 Dose: 2.5 mg Diphenhydramine HCl (Benadryl) 50 mg IVP Q4H PRN PRN Reason: Allergy symptoms Last Admin: 01/11/18 11:55 Dose: 50 mg Heparin Sodium (Porcine) (Heparin) 5,000 units SC Q8 ANNIE PRN Reason: Protocol Last Admin: 01/14/18 05:56 Dose: 5,000 units Home Med (Home Med) 1 unit PO 2300 [facility] Last Admin: 01/13/18 22:40 Dose: 1 unit Ondansetron HCl (Zofran Inj) 4 mg IVP 0500,1100,1700,2300 PRN PRN Reason: Nausea/Vomiting Last Admin: 01/13/18 05:07 Dose: 4 mg Pantoprazole Sodium (Protonix Inj) 20 mg IVP 0500,1100,1700 [facility] Last Admin: 01/13/18 16:34 Dose: 20 mg Pantoprazole Sodium (Protonix Inj) 40 mg IVP Q24H [facility] Last Admin: 01/13/18 22:25 Dose: Not Given Prednisone (Prednisone Tab) 60 mg PO DAILY [facility] Last Admin: 01/13/18 10:01 Dose: 60 mg Pyridostigmine [place] (Mestinon Tab) 60 mg PO 0500,1100,1700 [facility] Last Admin: 01/14/18 05:56 Dose: 60 mg - Labs Labs: 01/14/18 06:00 01/14/18 06:00 PT 11.1 SECONDS (9.4-12.5) 01/10/18 08:32 INR 0.97 (0.93-1.08) 01/10/18 08:32 APTT 18.5 Seconds (25.1-36.5) L 01/10/18 08:32
--- NOTE | 2018-01-14 13:49 | CP.PCM.DIS ---
<Masoud Rogers - Last Filed: 01/14/18 17:25> Provider - Provider Date of Admission: 01/10/18 09:04 Attending physician: Raudel Lama MD Primary care physician: Debby Santos MD Time Spent in preparation of Discharge (in minutes): 45 Hospital Course - Lab Results Lab Results: Micro Results 01/10/18 09:25 Urine,Clean Catch Urine Culture - Final No Growth (<1,000 CFU/ML) 01/10/18 13:18 Naris MRSA Culture (Admit) - Final MRSA NOT DETECTED Most Recent Lab Values WBC 12.4 10^3/ul (4.5-11.0) H 01/14/18 06:00 RBC 3.54 10^6/uL (3.5-6.1) 01/14/18 06:00 Hgb 10.6 g/dL (12.0-16.0) L 01/14/18 06:00 Hct 32.0 % (36.0-48.0) L 01/14/18 06:00 MCV 90.4 fl (80.0-105.0) 01/14/18 06:00 MCH 29.9 pg (25.0-35.0) 01/14/18 06:00 MCHC 33.1 g/dl (31.0-37.0) 01/14/18 06:00 RDW 17.9 % (11.5-14.5) H 01/14/18 06:00 Plt Count 354 10^3/uL (120.0-450.0) 01/14/18 06:00 MPV 8.9 fl (7.0-11.0) 01/14/18 06:00 Gran % 68.0 % (50.0-68.0) 01/14/18 06:00 Lymph % (Auto) 16.1 % (22.0-35.0) L 01/14/18 06:00 [place] % (Auto) 15.6 % (1.0-6.0) H 01/14/18 06:00 Eos % (Auto) 0.1 % (1.5-5.0) L 01/14/18 06:00 Baso % (Auto) 0.2 % (0.0-3.0) 01/14/18 06:00 Gran # 8.44 (1.4-6.5) H 01/14/18 06:00 Lymph # (Auto) 2.0 (1.2-3.4) 01/14/18 06:00 [place] # (Auto) 1.9 (0.1-0.6) H 01/14/18 06:00 Eos # (Auto) 0.0 (0.0-0.7) 01/14/18 06:00 Baso # (Auto) 0.02 K/mm3 (0.0-2.0) 01/14/18 06:00 Neutrophils % (Manual) 91 % (50.0-70.0) H 01/12/18 05:00 Band Neutrophils % 2 % (0-2) 01/12/18 05:00 Lymphocytes % (Manual) 3 % (22.0-35.0) L 01/12/18 05:00 Monocytes % (Manual) 4 % (1.0-6.0) 01/12/18 05:00 Platelet Evaluation Normal (NORMAL) 01/12/18 05:00 Anisocytosis (manual) Slight 01/12/18 05:00 ESR 90 mm/hr (0.0-20.0) H 01/10/18 08:32 PT 11.1 SECONDS (9.4-12.5) 01/10/18 08:32 INR 0.97 (0.93-1.08) 01/10/18 08:32 APTT 18.5 Seconds (25.1-36.5) L 01/10/18 08:32 pCO2 42 mm/Hg (35-45) 01/12/18 05:15 pO2 142.0 mm/Hg (80-100) H 01/12/18 05:15 HCO3 25.4 mmol/L (21-28) 01/12/18 05:15 ABG pH 7.39 (7.35-7.45) 01/12/18 05:15 ABG Total CO2 26.7 mmol.L (22-28) 01/12/18 05:15 ABG O2 Saturation 99.8 % (95-98) H 01/12/18 05:15 ABG O2 Content 13.9 ML/dl (15-23) L 01/12/18 05:15 ABG Base Excess 0.3 mmol/L (-2.0-3.0) 01/12/18 05:15 ABG Hemoglobin 10.1 g/dL (11.7-17.4) L 01/12/18 05:15 ABG Carboxyhemoglobin 2.6 % (0.5-1.5) H 01/12/18 05:15 POC ABG HHb (Measured) 0.2 % (0-5) 01/12/18 05:15 ABG Methemoglobin 1.4 % (0.0-3.0) 01/12/18 05:15 ABG O2 Capacity 13.9 mL/dl (16-24) L 01/12/18 05:15 ABG Potassium 3.3 mmol/L (3.6-5.2) L 01/10/18 15:10 VBG pH 7.34 (7.32-7.43) 01/10/18 12:01 VBG pCO2 39.0 (40-60) L 01/10/18 12:01 VBG HCO3 21.0 mmol/l (21-28) 01/10/18 12:01 VBG Total CO2 22.2 mmol.L (22-28) 01/10/18 12:01 VBG O2 Sat (Calc) 99.8 % (40-65) H 01/10/18 12:01 VBG Base Excess -4.4 mmol/L (0.0-2.0) L 01/10/18 12:01 VBG Potassium 4.0 mmol/L (3.6-5.2) 01/10/18 12:01 Hgb O2 Saturation 95.8 % (95.0-98.0) 01/12/18 05:15 Sodium 140.0 mmol/L (132-148) 01/10/18 15:10 Chloride 115.0 mmol/L (98-107) H 01/10/18 15:10 Glucose 161 mg/dl (65-105) H 01/10/18 15:10 Lactate 1.3 mmol/L (0.7-2.1) 01/10/18 15:10 FiO2 40.0 % 01/12/18 05:15 Pressure Support 7 01/10/18 15:10 Inspiratory BiPAP 12 01/10/18 15:10 Sodium 143 mmol/L (132-148) 01/14/18 06:00 Potassium 3.7 mmol/L (3.6-5.0) 01/14/18 06:00 Chloride 110 mmol/L (98-107) H 01/14/18 06:00 Carbon Dioxide 27 mmol/L (21-33) 01/14/18 06:00 Anion Gap 10 (10-20) 01/14/18 06:00 BUN 24 mg/dL (7-21) H 01/14/18 06:00 Creatinine 0.7 mg/dl (0.7-1.2) 01/14/18 06:00 Est GFR ( Amer) > 60 01/14/18 06:00 Est GFR (Non-Af Amer) > 60 01/14/18 06:00 Random Glucose 73 mg/dL (70-110) 01/14/18 06:00 Hemoglobin A1c 4.6 % (4.2-6.5) 01/10/18 08:30 Calcium 8.7 mg/dL (8.4-10.5) 01/14/18 06:00 Phosphorus 3.7 mg/dL (2.5-4.5) 01/10/18 08:32 Magnesium 1.9 mg/dL (1.7-2.2) 01/12/18 02:00 Total Bilirubin 1.7 mg/dL (0.2-1.3) H 01/14/18 06:00 AST 34 U/L (14-36) 01/14/18 06:00 ALT 57 U/L (7-56) H 01/14/18 06:00 Alkaline Phosphatase 56 U/L (38-126) 01/14/18 06:00 Lactate Dehydrogenase 586 U/L (333-699) 01/12/18 02:00 Total Creatine Kinase 22 U/L (35-230) L 01/12/18 02:00 Troponin I < 0.01 ng/mL 01/12/18 02:00 NT-Pro-B Natriuret Pep 730 pg/mL (0-450) H 01/12/18 02:00 Total Protein 8.2 g/dL (5.8-8.3) 01/14/18 06:00 Albumin 3.4 g/dL (3.0-4.8) 01/14/18 06:00 Globulin 4.8 gm/dL 01/14/18 06:00 Albumin/Globulin Ratio 0.7 (1.1-1.8) L 01/14/18 06:00 Triglycerides 220 mg/dL (35-160) H 01/10/18 12:30 Cholesterol 227 mg/dL (130-200) H 01/10/18 12:30 LDL Cholesterol Direct 115 mg/dL (0-129) 01/10/18 12:30 HDL Cholesterol 42 mg/dL (29-60) 01/10/18 12:30 Procalcitonin < 0.05 NG/ML (0.19-0.49) L 01/10/18 08:32 Free T4 0.96 ng/dL (0.78-2.19) 01/11/18 05:00 TSH 3rd Generation 0.20 mIU/mL (0.46-4.68) L 01/11/18 05:00 Arterial Blood Potassium 3.3 mmol/L (3.6-5.2) L 01/10/18 15:10 Venous Blood Potassium 4.0 mmol/L (3.6-5.2) 01/10/18 12:01 Urine Color Yellow (YELLOW) 01/10/18 09:25 Urine Appearance Clear (CLEAR) 01/10/18 09:25 Urine pH 6.0 (4.7-8.0) 01/10/18 09:25 Ur Specific [place] 1.025 (1.005-1.035) 01/10/18 09:25 Urine Protein 100 mg/dL (<30 mg/dL) H 01/10/18 09:25 Urine Glucose (UA) Negative mg/dL (NEGATIVE) 01/10/18 09:25 Urine Ketones Negative mg/dL (NEGATIVE) 01/10/18 09:25 Urine Blood Trace-lysed (NEGATIVE) H 01/10/18 09:25 Urine Nitrate Negative (NEGATIVE) 01/10/18 09:25 Urine Bilirubin Negative (NEGATIVE) 01/10/18 09:25 Urine Urobilinogen 0.2 E.U./dL (<1 E.U./dL) 01/10/18 09:25 Ur Leukocyte Esterase Negative Jaxon/uL (NEGATIVE) 01/10/18 09:25 Urine RBC 0 - 2 /hpf (0-2) 01/10/18 09:25 Urine WBC 0 - 2 /hpf (0-6) 01/10/18 09:25 Ur Epithelial Cells 1 - 3 /hpf (0-5) 01/10/18 09:25 Urine Bacteria Few (NEG) 01/10/18 09:25 Urine HCG, Qual Negative (NEGATIVE) 01/13/18 15:59 - Hospital Course Hospital Course: Ms Unger, 47 F, 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 She was discharged 3 weeks ago, not on the prednisone 60mg that she was discharged with due to side effect of edema. Last IVIG infusion was 2 weeks ago. Today, pt tried to stop her 4 dogs fighting, and in the process she became dyspneic and extreme fatique. She had chronic chest tightness from pleural effusion but the chest tightness was worsened Pt has a cervical lymphadenopathy in Sep 2017. During ultrasound, a mass in thorax was detected which turned out to be a thymoma. In the same month, she started to have swallowing difficulty, diplopia, fatique, and was diagnosed with myasthenia gravis the same month. In October, she underwent thymectomy with Dr. Flora Hunt, [place], [place]. Since then, she required thoracentesis. In November, she suddenly had worsening SOB after her IVIg session, was transferred from Dr Garibay office to [facility] ICU for myasthenia crisis, requiring intubation/thoracentesis/IVIG. She had 5 total thoracentesis, last one was in ICU beginning of December. 1 of the 5 pleural fluid showed positive for thymoma cells (Bx 12/12/17). She was discharged from [facility] hospital to home 3 weeks ago with prednisone 60mg taper. Pt only took it x 1 day and discontinued it due to body edema and facial swelling. She went to Dr Phoenix torres 2 weeks ago (Sat & Sat) for IVIg infusion with corticosteroid. She is to have outpt IVIg every 3 weeks. Home CPAP will be delivered home. Pt will follow up with [facility] to further evaluate whether there is remnant of thymoma after stablizing. Pt was planning to have an outpatient thoracentesis. CXR: RLL infiltrate and R pleural effusion Echo (12/12/17) EF 73% In the ED, FVC is 700cc. NIF is negative 30 cm H2O Hospital Course: While admitted the patient was found to be in myasthenia gravis crisis. As a result the patient was placed on IVIG. While admitted the patient was seen by Oncology. Started on meropenem but patient has a PCN allergy. Right lower lobe infiltrate. Given reaction history to PCN, patient was switched to Aztreonam for now. Patient was also started on solumedrol. Susbsequently rash on chest around scar area was found. Patient also complained of chest pain while admitted. Patient was worked up for acute coronary syndrome which was negative. Patient oxygen saturation was decreasing and was subsequently placed on BIPAP. As the patient began to improve she was switched to nasal cannula and then room air. Patient was seen and examined and determined stable to be discharged with the following orders. Imaging: Chest CT: elevation of right hemidiaphragm. small right effusion. minimal atelectasis at the right lung base. no evidence of pneumothorax EKG: Sinus bradycardia Chest portable: right lower lobe opacification consistent with some combination of atelectasis and or infiltrate and and moderately large effusion. Suspect minor left basilar atelectasis. Bilateral breast implants partially obscure both lung bases. Echo: Left ventricle is normal size Normal left ventricular wall thickeness Left ventricular function is normal Mild tricuspid regurgitation Mild pulmonary hypertension Discharge Instructions: 1.F/u with PMD within one week of Discharge. 2. F/u with Dr. Garibay Outpatient. 3. F/u with Oncology Dr. Cyr as outpatient for chemo and radiation 4. Return to hospital for any new or worsening symptoms. 5. Patient reported having all of her medications at home. Discharge Exam - Head Exam Head Exam: ATRAUMATIC, NORMOCEPHALIC - Eye Exam Eye Exam: EOMI, Normal appearance, PERRL Pupil Exam: NORMAL ACCOMODATION, PERRL - ENT Exam ENT Exam: Mucous Membranes Moist, Normal Oropharynx - Respiratory Exam Respiratory Exam: Clear to PA & Lateral, NORMAL BREATHING PATTERN. absent: Decreased Breath Sounds, Rales - Cardiovascular Exam Cardiovascular Exam: REGULAR RHYTHM, +S1, +S2 - GI/Abdominal Exam GI & Abdominal Exam: Normal Bowel Sounds, Unremarkable - Extremities Exam Extremities exam: full ROM - Back Exam Back exam: NORMAL INSPECTION. absent: CVA tenderness (L), CVA tenderness (R), paraspinal tenderness - Neurological Exam Neurological exam: Alert, CN II-XII Intact, Oriented x3 - Psychiatric Exam Psychiatric exam: Normal Affect, Normal Mood - Skin Skin Exam: Dry, Intact Discharge Plan - Discharge Medications Prescriptions: Pantoprazole Sodium [Protonix] 40 mg PO DAILY #15 ect - Follow Up Plan Condition: FAIR Disposition: HOME/ ROUTINE Instructions: Respiratory Distress Syndrome, Adult (DC), Myasthenia Gravis (DC) Additional Instructions: 1.F/u with PMD within one week of Discharge. 2. F/u with Dr. Garibay Outpatient. 3. F/u with Oncology Dr. Cyr as outpatient for chemo and radiation 4. Return to hospital for any new or worsening symptoms. Referrals: Narcisa Cyr MD [Staff Provider] - Yunier Garibay MD [Medical Doctor] - Debby Santos MD [Primary Care Provider] - Follow up with primary <Vicente Sr - Last Filed: 01/15/18 17:15> Provider - Provider Date of Admission: 01/10/18 09:04 Attending physician: Raudel Lama MD Primary care physician: Debby Santos MD Hospital Course - Lab Results Lab Results: Micro Results 01/10/18 09:25 Urine,Clean Catch Urine Culture - Final No Growth (<1,000 CFU/ML) 01/10/18 13:18 Naris MRSA Culture (Admit) - Final MRSA NOT DETECTED Most Recent Lab Values WBC 12.4 10^3/ul (4.5-11.0) H 01/14/18 06:00 RBC 3.54 10^6/uL (3.5-6.1) 01/14/18 06:00 Hgb 10.6 g/dL (12.0-16.0) L 01/14/18 06:00 Hct 32.0 % (36.0-48.0) L 01/14/18 06:00 MCV 90.4 fl (80.0-105.0) 01/14/18 06:00 MCH 29.9 pg (25.0-35.0) 01/14/18 06:00 MCHC 33.1 g/dl (31.0-37.0) 01/14/18 06:00 RDW 17.9 % (11.5-14.5) H 01/14/18 06:00 Plt Count 354 10^3/uL (120.0-450.0) 01/14/18 06:00 MPV 8.9 fl (7.0-11.0) 01/14/18 06:00 Gran % 68.0 % (50.0-68.0) 01/14/18 06:00 Lymph % (Auto) 16.1 % (22.0-35.0) L 01/14/18 06:00 [place] % (Auto) 15.6 % (1.0-6.0) H 01/14/18 06:00 Eos % (Auto) 0.1 % (1.5-5.0) L 01/14/18 06:00 Baso % (Auto) 0.2 % (0.0-3.0) 01/14/18 06:00 Gran # 8.44 (1.4-6.5) H 01/14/18 06:00 Lymph # (Auto) 2.0 (1.2-3.4) 01/14/18 06:00 [place] # (Auto) 1.9 (0.1-0.6) H 01/14/18 06:00 Eos # (Auto) 0.0 (0.0-0.7) 01/14/18 06:00 Baso # (Auto) 0.02 K/mm3 (0.0-2.0) 01/14/18 06:00 Neutrophils % (Manual) 91 % (50.0-70.0) H 01/12/18 05:00 Band Neutrophils % 2 % (0-2) 01/12/18 05:00 Lymphocytes % (Manual) 3 % (22.0-35.0) L 01/12/18 05:00 Monocytes % (Manual) 4 % (1.0-6.0) 01/12/18 05:00 Platelet Evaluation Normal (NORMAL) 01/12/18 05:00 Anisocytosis (manual) Slight 01/12/18 05:00 ESR 90 mm/hr (0.0-20.0) H 01/10/18 08:32 PT 11.1 SECONDS (9.4-12.5) 01/10/18 08:32 INR 0.97 (0.93-1.08) 01/10/18 08:32 APTT 18.5 Seconds (25.1-36.5) L 01/10/18 08:32 pCO2 42 mm/Hg (35-45) 01/12/18 05:15 pO2 142.0 mm/Hg (80-100) H 01/12/18 05:15 HCO3 25.4 mmol/L (21-28) 01/12/18 05:15 ABG pH 7.39 (7.35-7.45) 01/12/18 05:15 ABG Total CO2 26.7 mmol.L (22-28) 01/12/18 05:15 ABG O2 Saturation 99.8 % (95-98) H 01/12/18 05:15 ABG O2 Content 13.9 ML/dl (15-23) L 01/12/18 05:15 ABG Base Excess 0.3 mmol/L (-2.0-3.0) 01/12/18 05:15 ABG Hemoglobin 10.1 g/dL (11.7-17.4) L 01/12/18 05:15 ABG Carboxyhemoglobin 2.6 % (0.5-1.5) H 01/12/18 05:15 POC ABG HHb (Measured) 0.2 % (0-5) 01/12/18 05:15 ABG Methemoglobin 1.4 % (0.0-3.0) 01/12/18 05:15 ABG O2 Capacity 13.9 mL/dl (16-24) L 01/12/18 05:15 ABG Potassium 3.3 mmol/L (3.6-5.2) L 01/10/18 15:10 VBG pH 7.34 (7.32-7.43) 01/10/18 12:01 VBG pCO2 39.0 (40-60) L 01/10/18 12:01 VBG HCO3 21.0 mmol/l (21-28) 01/10/18 12:01 VBG Total CO2 22.2 mmol.L (22-28) 01/10/18 12:01 VBG O2 Sat (Calc) 99.8 % (40-65) H 01/10/18 12:01 VBG Base Excess -4.4 mmol/L (0.0-2.0) L 01/10/18 12:01 VBG Potassium 4.0 mmol/L (3.6-5.2) 01/10/18 12:01 Hgb O2 Saturation 95.8 % (95.0-98.0) 01/12/18 05:15 Sodium 140.0 mmol/L (132-148) 01/10/18 15:10 Chloride 115.0 mmol/L (98-107) H 01/10/18 15:10 Glucose 161 mg/dl (65-105) H 01/10/18 15:10 Lactate 1.3 mmol/L (0.7-2.1) 01/10/18 15:10 FiO2 40.0 % 01/12/18 05:15 Pressure Support 7 01/10/18 15:10 Inspiratory BiPAP 12 01/10/18 15:10 Sodium 143 mmol/L (132-148) 01/14/18 06:00 Potassium 3.7 mmol/L (3.6-5.0) 01/14/18 06:00 Chloride 110 mmol/L (98-107) H 01/14/18 06:00 Carbon Dioxide 27 mmol/L (21-33) 01/14/18 06:00 Anion Gap 10 (10-20) 01/14/18 06:00 BUN 24 mg/dL (7-21) H 01/14/18 06:00 Creatinine 0.7 mg/dl (0.7-1.2) 01/14/18 06:00 Est GFR ( Amer) > 60 01/14/18 06:00 Est GFR (Non-Af Amer) > 60 01/14/18 06:00 Random Glucose 73 mg/dL (70-110) 01/14/18 06:00 Hemoglobin A1c 4.6 % (4.2-6.5) 01/10/18 08:30 Calcium 8.7 mg/dL (8.4-10.5) 01/14/18 06:00 Phosphorus 3.7 mg/dL (2.5-4.5) 01/10/18 08:32 Magnesium 1.9 mg/dL (1.7-2.2) 01/12/18 02:00 Total Bilirubin 1.7 mg/dL (0.2-1.3) H 01/14/18 06:00 AST 34 U/L (14-36) 01/14/18 06:00 ALT 57 U/L (7-56) H 01/14/18 06:00 Alkaline Phosphatase 56 U/L (38-126) 01/14/18 06:00 Lactate Dehydrogenase 586 U/L (333-699) 01/12/18 02:00 Total Creatine Kinase 22 U/L (35-230) L 01/12/18 02:00 Troponin I < 0.01 ng/mL 01/12/18 02:00 NT-Pro-B Natriuret Pep 730 pg/mL (0-450) H 01/12/18 02:00 Total Protein 8.2 g/dL (5.8-8.3) 01/14/18 06:00 Albumin 3.4 g/dL (3.0-4.8) 01/14/18 06:00 Globulin 4.8 gm/dL 01/14/18 06:00 Albumin/Globulin Ratio 0.7 (1.1-1.8) L 01/14/18 06:00 Triglycerides 220 mg/dL (35-160) H 01/10/18 12:30 Cholesterol 227 mg/dL (130-200) H 01/10/18 12:30 LDL Cholesterol Direct 115 mg/dL (0-129) 01/10/18 12:30 HDL Cholesterol 42 mg/dL (29-60) 01/10/18 12:30 Procalcitonin < 0.05 NG/ML (0.19-0.49) L 01/10/18 08:32 Free T4 0.96 ng/dL (0.78-2.19) 01/11/18 05:00 TSH 3rd Generation 0.20 mIU/mL (0.46-4.68) L 01/11/18 05:00 Arterial Blood Potassium 3.3 mmol/L (3.6-5.2) L 01/10/18 15:10 Venous Blood Potassium 4.0 mmol/L (3.6-5.2) 01/10/18 12:01 Urine Color Yellow (YELLOW) 01/10/18 09:25 Urine Appearance Clear (CLEAR) 01/10/18 09:25 Urine pH 6.0 (4.7-8.0) 01/10/18 09:25 Ur Specific [place] 1.025 (1.005-1.035) 01/10/18 09:25 Urine Protein 100 mg/dL (<30 mg/dL) H 01/10/18 09:25 Urine Glucose (UA) Negative mg/dL (NEGATIVE) 01/10/18 09:25 Urine Ketones Negative mg/dL (NEGATIVE) 01/10/18 09:25 Urine Blood Trace-lysed (NEGATIVE) H 01/10/18 09:25 Urine Nitrate Negative (NEGATIVE) 01/10/18 09:25 Urine Bilirubin Negative (NEGATIVE) 01/10/18 09:25 Urine Urobilinogen 0.2 E.U./dL (<1 E.U./dL) 01/10/18 09:25 Ur Leukocyte Esterase Negative Jaxon/uL (NEGATIVE) 01/10/18 09:25 Urine RBC 0 - 2 /hpf (0-2) 01/10/18 09:25 Urine WBC 0 - 2 /hpf (0-6) 01/10/18 09:25 Ur Epithelial Cells 1 - 3 /hpf (0-5) 01/10/18 09:25 Urine Bacteria Few (NEG) 01/10/18 09:25 Urine HCG, Qual Negative (NEGATIVE) 01/13/18 15:59 Mycoplasma pneumon IgG >5.00 (<=0.90) H 01/11/18 05:00 Attending/Attestation - Attestation I have personally seen and examined this patient.: Yes I have fully participated in the care of the patient.: Yes I have reviewed all pertinent clinical information, including history, physical exam and plan: Yes Notes (Text): myesthenia crisis
== END 2018-01-14 10:26 | disposition home or self-care (01) | DRG 533 ==
LOC: ED 07:44 → ERH 09:04 → CCU 13:03
PROVIDERS: ADMIT Internal Medicine; ATTEND Internal Medicine
PROC: 5A09357 Assistance with Respiratory Ventilation, Less than 24 Consecutive Hours, Continuous Positive Airway Pressure (ICD-10-PCS; principal; 2018-01-10)
PROC: 30233S1 Transfusion of Nonautologous Globulin into Peripheral Vein, Percutaneous Approach (ICD-10-PCS; 2018-01-10)
DX: G70.01 Myasthenia gravis with (acute) exacerbation (principal); J18.9 Pneumonia, unspecified organism; I07.1 Rheumatic tricuspid insufficiency; J90 Pleural effusion, not elsewhere classified; J98.11 Atelectasis; D15.0 Benign neoplasm of thymus; R13.10 Dysphagia, unspecified; D63.8 Anemia in other chronic diseases classified elsewhere; J45.909 Unspecified asthma, uncomplicated; I27.20 Pulmonary hypertension, unspecified; R00.1 Bradycardia, unspecified; L27.0 Generalized skin eruption due to drugs and medicaments taken internally; T36.1X5A Adverse effect of cephalosporins and other beta-lactam antibiotics, initial encounter; Z88.0 Allergy status to penicillin; Z98.82 Breast implant status; Z91.040 Latex allergy status

== ENCOUNTER 2018-02-24 11:51 | Inpatient (IN) | payer MEDICAID ==
[2018-02-19 11:14] VITALS: BMI 24.1
[2018-02-24 12:54] LABS: BASO # 0.07 K/mm3 (0.0-2.0); BASO % 0.8 % (0.0-3.0); EOS # 0.3 (0.0-0.7); EOS % 3.8 % (1.5-5.0); GRAN # 5.18 (1.4-6.5); GRAN % 57.1 % (50.0-68.0); LYMPH # 2.5 (1.2-3.4); MEAN CELL VOLUME 88.2 fl (80.0-105.0); MEAN CORPUSCULAR HEMOGLOBIN 30.1 pg (25.0-35.0); MEAN CORPUSCULAR HGB CONC 34.1 g/dl (31.0-37.0); MEAN PLATELET VOLUME 8.5 fl (7.0-11.0); MONO % 11.3 % (1.0-6.0); RBC 3.99 10^6/uL (3.5-6.1); RED CELL DISTRIBUTION WIDTH 15.5 % (11.5-14.5); WHITE BLOOD COUNT 9.1 10^3/ul (4.5-11.0)
[2018-02-24 13:03] LABS: BLOOD UREA NITROGEN 15 mg/dL (7-21); CALCIUM 9.1 mg/dL (8.4-10.5); GFR AFRICAN-AMERICAN > 60; GFR NON-AFRICAN AMERICAN > 60
[2018-02-24 13:04] LABS: INR 0.97 (0.93-1.08); PARTIAL THROMBOPLASTIN TIME 26.9 Seconds (25.1-36.5); PROTHROMBIN TIME 11.2 SECONDS (9.4-12.5)
[2018-02-24] MEDS ORDERED: Lidocaine 2% Inj (20ml) ONE (15:03)
[2018-02-24] MEDS ORDERED: Midazolam 2 MG/2 ML VIAL ONE ×2 (16:09→16:34)
[2018-02-24] MEDS ORDERED: DiphenhydrAMINE 50 mg/ml Inj ONE (16:31)
--- NOTE | 2018-02-24 16:54 | CP.PCM.HP ---
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 In June of 2017 she was found to have a palpable right neck mass and underwent CT of the neck which revealed are 2.4 cm paratracheal lymph node and a mass in the apex of the right lung. Biopsy confirmed thymoma. She underwent a PET scan and then surgery for removal of the thymoma. Prior to surgery she was evaluated by neurology and cardiology and was diagnosed with myasthenia gravis and started on Pyridostigmine. Prior to surgery it was thought that her Myasthenia Crisis would resolve after resection of the thymus mass. She underwent thymectomy in [facility] 2017 and has had recurrent frequent right sided pleural effusions requiring thoracentesis and bouts of myasthenia crisis. Computed tomography in January of this year has revealed worsening metastatic disease in the mediastinum. She was started on Steroids and IVIG and radiation and chemotherapy option were discussed with her. On this admission, the patient underwent port-a-cath placmemt and will be receiving cisplatin and etoposide Saturday, Saturday, and . Pulmonology and Nephrology are consulted. 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 Close female friend usually visits her. Boyfriend live closed by. Denies ever smoke. No drink, drug. 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) - HEENT Hx HEENT Problems: No - RENAL Hx Chronic Kidney Disease: No - ENDOCRINE/METABOLIC Hx Endocrine Disorders: No - HEMATOLOGICAL/ONCOLOGICAL Hx Blood Transfusions: No - INTEGUMENTARY Hx Dermatological Problems: No - MUSCULOSKELETAL/RHEUMATOLOGICAL Hx Musculoskeletal Disorders: No (WEAK MUSCLES) - GASTROINTESTINAL Hx Gastrointestinal Disorders: No - GENITOURINARY/GYNECOLOGICAL Hx Genitourinary Disorders: No - PSYCHIATRIC Hx Emotional Abuse: No Hx Physical Abuse: No Hx Substance Use: No - SURGICAL HISTORY Hx Surgeries: Yes - ANESTHESIA Hx Anesthesia Reactions: Yes (TROUBLE WAKING.MAY DEVELOP PROBLEMS R/T MYASTHENIA ) Hx Malignant Hyperthermia: No Meds Allergies/Adverse Reactions: Allergies Allergy/AdvReac Type Severity Reaction Status Date / Time acetaminophen [From Percocet] Allergy Severe ANAPHYLAXIS Verified 02/19/18 11:19 cephalexin [From Keflex] Allergy Severe RASH Verified 02/19/18 11:19 codeine Allergy Severe RASH/SOB Verified 02/19/18 11:19 Iodine and Iodide Containing Allergy Severe ANAPHYLAXIS Verified 02/19/18 11:19 Produc latex Allergy Severe ANAPHYLAXIS Verified 02/19/18 11:19 oxycodone [From Percocet] Allergy Severe ANAPHYLAXIS Verified 02/19/18 11:19 peanut Allergy Severe ANAPHYLAXIS Verified 02/19/18 11:19 Penicillins Allergy Severe RASH/SOB Verified 02/19/18 11:19 shellfish derived Allergy ANAPHYLAXIS Verified 02/19/18 11:19 Physical Exam - Constitutional Appears: Non-toxic, No Acute Distress - Head Exam Head Exam: ATRAUMATIC, NORMOCEPHALIC - Respiratory Exam Respiratory Exam: Decreased Breath Sounds (bilaterally) - Cardiovascular Exam Cardiovascular Exam: RRR, +S1, +S2 - GI/Abdominal Exam GI & Abdominal Exam: Normal Bowel Sounds, Soft - Extremities Exam Extremities exam: Positive for: pedal edema. Negative for: calf tenderness - Back Exam Back exam: NORMAL INSPECTION. absent: CVA tenderness (L), CVA tenderness (R) - Neurological Exam Neurological exam: Alert, CN II-XII Intact, Oriented x3 - Psychiatric Exam Psychiatric exam: Normal Affect, Normal Mood - Skin Skin Exam: Dry, Intact, Normal Color, Warm Results - Vital Signs Recent Vital Signs: Last Vital Signs Temp 98.3 F 02/24/18 12:53 Pulse 67 02/24/18 12:53 Resp 20 02/24/18 12:53 BP 131/86 02/24/18 12:53 Pulse Ox 98 02/24/18 12:53 - Labs Result Diagrams: 02/24/18 12:45 02/24/18 12:45 Labs: Laboratory Results - last 24 hr 02/24/18 02/24/18 02/24/18 12:45 12:45 12:45 WBC 9.1 D RBC 3.99 Hgb 12.0 Hct 35.2 L MCV 88.2 MCH 30.1 MCHC 34.1 RDW 15.5 H Plt Count 405 MPV 8.5 Gran % 57.1 Lymph % (Auto) 27.0 Johnson % (Auto) 11.3 H Eos % (Auto) 3.8 Baso % (Auto) 0.8 Gran # 5.18 Lymph # (Auto) 2.5 Johnson # (Auto) 1.0 H Eos # (Auto) 0.3 Baso # (Auto) 0.07 PT 11.2 INR 0.97 APTT 26.9 Sodium 140 Potassium 3.8 Chloride 110 H Carbon Dioxide 23 Anion Gap 10 BUN 15 Creatinine 0.6 L Est GFR ( Amer) > 60 Est GFR (Non-Af Amer) > 60 Random Glucose 98 Calcium 9.1 Urine HCG, Qual 02/24/18 14:30 WBC RBC Hgb Hct MCV MCH MCHC RDW Plt Count MPV Gran % Lymph % (Auto) Johnson % (Auto) Eos % (Auto) Baso % (Auto) Gran # Lymph # (Auto) Johnson # (Auto) Eos # (Auto) Baso # (Auto) PT INR APTT Sodium Potassium Chloride Carbon Dioxide Anion Gap BUN Creatinine Est GFR ( Amer) Est GFR (Non-Af Amer) Random Glucose Calcium Urine HCG, Qual Negative Assessment & Plan - Assessment and Plan (Free Text) Assessment: 47 year old female with thymoma s/p resection with recurrence and worsening of myasthnia crisis and worsening metastatic disease and lymphadenopathy en route to receive etoposide and cisplatin Saturday, Saturday and . Nephorology and Pulmonology consulted. Continue home medications, including pyridostigmine 60 mg TID and the 180 mg tablet Extended Release at bedtime. Prednisone 50 mg every other day. Protonix 40 mg at 06:00 AM. Neurochecks and seizure precautions. Case reviewed and discussed at length with attending physician, Dr. Cyr. Tone Pelaez DO PGY-2: Internal Medicine Resident on service for hematology and oncology, Dr. Cyr - Date & Time Date: 02/24/18 Time: 17:33
[2018-02-24] MEDS ORDERED: Sodium Chloride 0.9% 1,000 ML IV SCH (17:00)
[2018-02-24] MEDS ORDERED: Sodium Chloride 0.45% 1,000 ML IV SCH (17:15)
[2018-02-24] MEDS ORDERED: Levalbuterol 0.63 MG/3 ML Inhal Soln UD IH PRN (17:42)
[2018-02-24] MEDS: DiphenhydrAMINE 50 mg/ml Inj IVP PRN ×2 (18:00→19:00)
--- NOTE | 2018-02-24 19:38 | VASCULAR ---
PROCEDURE: Ultrasound and fluoroscopic right internal jugular venous access port. CLINICAL HISTORY: Malignant thymoma.Venous port for chemotherapy. PHYSICIAN(S): Loy Newman M.D. TECHNIQUE: The relative risks and indications of the procedure were explained to the patient and consent obtained. The patient was placed supine on the arteriogram table and the right neck and chest prepped and draped in the usual sterile fashion. Conscious sedation monitoring was provided throughout the procedure by a nurse. Antibiotics were given prior to the procedure. Under direct ultrasound guidance, the right internal jugular vein was punctured with a micro-puncture set. A 0.035 angled Glidewire was advanced into the IVC. A 4 cm incision was made below the right clavicle and the pocket blunted dissected. A 8 Tristanian single-lumen catheter, 23 cm long, was advanced to the SVC/RA junction. The catheter was trimmed and attached to the port. The port aspirates and injects easily. The port was placed in the pocket and closed in 2 layers. An access needle was placed. The patient tolerated the procedure well. IMPRESSION: Ultrasound and fluoroscopically placed right internal jugular venous access port.
[2018-02-24] MEDS: Sodium Chloride 0.9% 1,000 ML IV SCH (20:00)
[2018-02-24] MEDS ORDERED: PYRIDOSTIGMINE 180 MG PO SCH (23:00)
[2018-02-24] MEDS ORDERED: Pneumococcal 23-Valent Vaccine IM ONE (23:11)
[2018-02-25] MEDS ORDERED: PYRIDOSTIGMINE BROMIDE 60 MG PO SCH (05:00)
[2018-02-25 06:33] LABS: BASO # 0.04 K/mm3 (0.0-2.0); BASO % 0.5 % (0.0-3.0); EOS # 0.3 (0.0-0.7); EOS % 3.4 % (1.5-5.0); GRAN # 4.51 (1.4-6.5); GRAN % 59.6 % (50.0-68.0); HEMOGLOBIN 11.4 g/dL (12.0-16.0); LYMPH # 1.8 (1.2-3.4); LYMPH % 24.2 % (22.0-35.0); MEAN CELL VOLUME 89.2 fl (80.0-105.0); MEAN CORPUSCULAR HGB CONC 33.6 g/dl (31.0-37.0); MEAN PLATELET VOLUME 8.6 fl (7.0-11.0); MONO # 0.9 (0.1-0.6); MONO % 12.3 % (1.0-6.0); RBC 3.8 10^6/uL (3.5-6.1); WHITE BLOOD COUNT 7.6 10^3/ul (4.5-11.0)
--- NOTE | 2018-02-25 06:43 | CP.PCM.PN ---
Subjective - Date & Time of Evaluation Date of Evaluation: 02/25/18 Time of Evaluation: 06:35 - Subjective Subjective: Tone Pelaez DO, Internal Medicine Resident PGY-2: Hematology/Oncology Progress Note for Dr. Cyr Patient seen and examined at bedside. Patient reports pain at port site. Nursing notes reveal that the patient requested for Benadryl after the port- insertion yesterday. At the bedside, there were liquid cups and the patient reports that she still has difficulty with swallowing, and that she would like a mechanically, soft diet for her dysphagia. We discussed with the her which chemotherapy she will be receiving and which of the agents tends to have an alopecia effect. We also went over the medications which she listed as allergic to. She is not allergic to Acetaminophen. Otherwise, in the morning she had no complaints. At a subsequent while the patient was receiving etoposide the nurse paged Dr. Cyr at approximately 17:00 and reported that the patient was not feeling well and that her most recent blood pressure was elevated. The nurse was informed to stop the infusion and that we would come to evaluate the patient. The patient's signficant other was at the bedside and reported that the patient had diplopia and weakness in the legs, that is not unusual around the time she is due for her Pyridostigmine. He said that her current symptoms were not "out of the ordinary." Keep in mind that the patient does have Myasthenia Gravis. We gave her the Pyridostigmine and re-checked her vitals at 17:30 at which point the patient was comfortable and had a blood pressure of 130/76 and did not feel weak or have diplopia. We also discussed the use of the cyrocap and informed the patient and her significant other that should she need to get out of bed, she should kindly ask for a nurse. We also got a bedside commode for her at this time. Objective - Vital Signs/Intake and Output Vital Signs (last 24 hours): Temp Pulse Resp BP Pulse Ox 98.3 F 67 18 136/82 98 02/24/18 22:50 02/25/18 06:00 02/24/18 22:50 02/24/18 22:50 02/24/18 17:50 Intake and Output: 02/24/18 02/25/18 18:59 06:59 Intake Total 120 Balance 120 - Medications Medications: Current Medications Diphenhydramine HCl (Benadryl) 25 mg IVP Q4H PRN PRN Reason: Allergy symptoms Last Admin: 02/24/18 19:00 Dose: 25 mg Enoxaparin Sodium (Lovenox) 40 mg SC DAILY [facility] PRN Reason: Protocol Home Med (Home Med) 1 unit PO [id number],[id number],1700 [facility] Home Med (Home Med) 1 unit PO 2300 [facility] Sodium Chloride (Sodium Chloride 0.9%) 1,000 mls @ 60 mls/hr IV .[id number] [facility] Last Admin: 02/24/18 20:00 Dose: 60 mls/hr Levalbuterol HCl (Xopenex) 0.63 mg IH [id number] PRN PRN Reason: Shortness of Breath Ondansetron HCl (Zofran Inj) 4 mg IVP Q4H PRN PRN Reason: Nausea/Vomiting Pantoprazole Sodium (Protonix Ec Tab) 40 mg PO DAILY [facility] Prednisone (Prednisone Tab) 50 mg PO QOTHERDAY [facility] - Labs Labs: 02/24/18 12:45 02/24/18 12:45 PT 11.2 SECONDS (9.4-12.5) 02/24/18 12:45 INR 0.97 (0.93-1.08) 02/24/18 12:45 APTT 26.9 Seconds (25.1-36.5) 02/24/18 12:45 - Constitutional Appears: Non-toxic, No Acute Distress - Head Exam Head Exam: ATRAUMATIC, NORMOCEPHALIC - Eye Exam Eye Exam: EOMI, Normal appearance Additional comments: mild ptosis bilaterally, skin was - ENT Exam ENT Exam: Mucous Membranes Dry - Neck Exam Neck Exam: Normal Inspection Additional comments: port site clean and intact - Respiratory Exam Additional comments: right lung sounds diminished - Cardiovascular Exam Cardiovascular Exam: RRR, +S1, +S2 - GI/Abdominal Exam GI & Abdominal Exam: Soft, Normal Bowel Sounds - Extremities Exam Extremities Exam: Normal Inspection. 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 In June of 2017 she was found to have a palpable right neck mass and underwent CT of the neck which revealed are 2.4 cm paratracheal lymph node and a mass in the apex of the right lung. Biopsy confirmed thymoma. She underwent a PET scan and then surgery for removal of the thymoma. Prior to surgery she was evaluated by neurology and cardiology and was diagnosed with myasthenia gravis and started on Pyridostigmine. Prior to surgery it was thought that her Myasthenia Crisis would resolve after resection of the thymus mass. She underwent thymectomy in October 2017 and has had recurrent frequent right sided pleural effusions requiring thoracentesis and bouts of myasthenia crisis. Computed tomography in January of this year has revealed worsening metastatic disease in the mediastinum. She was started on Steroids and IVIG and radiation and chemotherapy option were discussed with her. On this admission, the patient underwent port-a-cath placmemt without complications and will be receiving pre-medications, etoposide , and Cisplatinum on Saturday, Saturday, and . Pulmonology, Nephrology, and Neurology are consulted. We appreciate the recommendations. We also spoke with the pharmacy in regards to the patient potentially needing a Neulasta shot as an outpatient post-chemotherapy. We will continue to monitor the patient closely.
[2018-02-25 06:54] LABS: ALB/GLOB RATIO 0.8 (1.1-1.8); ALBUMIN 3.5 g/dL (3.0-4.8); ALT/SGPT 24 U/L (7-56); AST/SGOT 30 U/L (14-36); BLOOD UREA NITROGEN 13 mg/dL (7-21); CALCIUM 8.2 mg/dL (8.4-10.5); GFR AFRICAN-AMERICAN > 60; GFR NON-AFRICAN AMERICAN > 60; URIC ACID 5.2 mg/dL (2.5-6.2)
--- NOTE | 2018-02-25 10:21 | RAD ---
HISTORY: COMPARISON: 01/12/2018 TECHNIQUE: Chest PA and lateral FINDINGS: LINES AND TUBES: The right MediPort terminates at the cavoatrial junction LUNG AND PLEURA: The lungs are well inflated and clear. There is interval significant improvement in right pleural effusion with residual small effusion. No pneumothorax. HEART AND MEDIASTINUM: The heart is not enlarged. Status post median sternotomy. The hilar and mediastinal contours are within normal limits. SKELETAL STRUCTURES: The bony structures are within normal limits for the patient's age. VISUALIZED UPPER ABDOMEN: Normal. OTHER FINDINGS: Again seen are rim calcified bilateral breast implants. IMPRESSION: Interval significant improvement in the right pleural effusion with residual small effusion. Clear left lung.
[2018-02-25] MEDS ORDERED: Lidocaine 5% Oint(35 gm) TOP PRN (10:38)
[2018-02-25] MEDS: Enoxaparin 40 mg Syringe SC SCH (10:46)
[2018-02-25] MEDS: Sodium Chloride 0.9% 1,000 ML IV SCH (10:49)
[2018-02-25] MEDS ORDERED: Palonosetron 0.25 mg/5 mL Inj IVP ONE (11:15)
[2018-02-25] MEDS ORDERED: DIPHENHYDRAMINE IVPB ONE (11:15)
[2018-02-25] MEDS ORDERED: FAMOTIDINE IVPB ONE (11:15)
[2018-02-25] MEDS ORDERED: SODIUM CHLORIDE 0.9% IVPB ONE (11:15)
[2018-02-25] MEDS ORDERED: SODIUM CHLORIDE 0.9% IV ONE (11:30)
[2018-02-25] MEDS ORDERED: CISPLATIN IV ONE (11:30)
[2018-02-25] MEDS ORDERED: MANNITOL IV ONE (11:30)
[2018-02-25] MEDS ORDERED: Sodium Chloride 0.9% 1,000 ML IV SCH (11:30)
[2018-02-25] MEDS: methylPREDNISolone 125 MG in Sodium Chloride 0.9% 100 ML IV SCH (14:36)
[2018-02-25] MEDS ORDERED: MethylPREDNISolone 40 mg Vial ONE (16:42)
--- NOTE | 2018-02-25 18:14 | AN ---
ONCOLOGY ADMISSION NOTE HISTORY OF PRESENT ILLNESS: One of the several admits for this 47-year-old female with known diagnosis of stage IV-A malignant thymoma, who recently was in the ICU at [facility] for myasthenia crisis, of which she has had several including last week when she was in our office. She has been on IV IgG that she is getting every three weeks with two doses in that time when she gets the IV IgG along with alternating high doses of p.o. prednisone for the myasthenic crisis. Patient is also on Mestinon for her myasthenic crisis, which she takes 3 times a day plus at nighttime. Her initial disease presented in early part of 08/2017, when she felt she had some pulsatile lymph nodes in the neck, which prompted her to see the doctor, who in turn went on to do some investigation. At that time, a chest x-ray showed a right upper lobe mass with some calcification for which she subsequently underwent CAT scan of the chest. CAT scan of the chest showed a right mediastinal mass, which was greater than 10 cm, a biopsy of which was done by Dr. Loy Newman at [facility]. Her biopsy was consistent with malignant thymoma and was staged as B1 based on the histologic criteria. Subsequent to that, the patient was seen by Dr. Hunt and went on to have surgery at a hospital down the [facility] called [facility], where Dr. Hunt did the surgery. Gross debulking was done and the patient was being monitored. The patient's case was presented to Tumor Board and from the description of the pathology report, the tumor was greater than 11 cm, almost the size of small volleyball and obviously, some disease had to be left behind. Postoperatively, the patient was being monitored through the month and through November, December, and January. The patient has had several episodes of myasthenic crisis, requiring IV gamma globulin, prednisone and Mestinon without significant improvement and the patient was then eventually seen by us on 01/11/2018 and the recommendation at that time, based on the analysis, was that the patient should get systemic chemotherapy with chilkoot-etoposide based chemotherapy, primarily to reduce the volume of the tumor and, thereby, decrease the episodes of myasthenic crisis that the patient was going through. Patient, since the surgery, had recurrent pleural effusion for which she had repeated thoracocentesis. The thoracentesis done on 12/07/2017 clearly shows thymoma cells in the pleural fluid. There is another fluid dated 01/01/2018. It also shows atypical cells, very highly suggestive of thymoma involvement in the pleural fluid. Patient has had 5 times thoracentesis so far prior to getting admitted to the hospital. She has also seen the neurologist, Dr. Garibay, and has been getting IV gamma globulin. At one of the episodes, when she was getting the gamma globulin, the patient became symptomatic with shortness of breath and was transferred to the ICU. After being seen in the ER, she was electively intubated. Etiology of that episode was thought to be myasthenic crisis than a reaction to the IV IgG. Patient was able to be extubated in 2 hours. She was given high dose steroids and the patient was supposed to continue IV IgG every 3 weeks, which she has been doing as an outpatient at doctor's office. The patient was supposed to see Dr. Hunt as an outpatient for possibly a VATS procedure as well, but since the case was presented at his Tumor Board also, recommendation was to back off and recommend probably postoperative radiation. At this time, we are planning to start her on systemic therapy. Patient has been continuing her prednisone 50 mg every other day as she is not able to tolerate higher doses of prednisone along with Mestinon and along with IV IgG given every 3 weeks. Patient had an echo done, which shows an ejection fraction of 73% without any pericardial effusion. Subjectively, patient still has episodes of myasthenic crisis, though last week she had an IgG and she may be good for about another 2 weeks. Patient tells me that her voice and strength have improved. Weakness in the shoulders has improved. She is able to talk. She is able to keep her food down and able to keep her liquids down. Denies any history of fever, chills, nausea, or vomiting. Denies any headache. Denies any blurred vision at this time. Respiratory min, patient has been complaining of dyspnea on exertion without any history significant for hemoptysis. No history of any dysuria. As far as the myasthenic crisis is concerned, patient has had episodes of crisis at least 5 times in the last 3 months. Patient feels whenever she gets a myasthenic episode of crisis, she feels her tongue rolling back and she feels that she is choking when she gets these symptoms along with the other symptoms associated with the crisis. PAST MEDICAL HISTORY: As I mentioned, it is significant for malignant thymoma that was diagnosed in 08/2017. In 10/2017, patient had myasthenic crisis after the resection of the thymoma, but the myasthenic crisis was complicated with difficulty in walking; diplopia; home CPAP; dysphagia; elevated globulin, probably polyclonal. FAMILY HISTORY: Significant for the fact that her father of Melissa Gehrig disease at age 59, within a year. SOCIAL HISTORY: The patient lives alone. She has a close male friend, who lives often with her. She has a boyfriend, who lives closeby. Patient does not smoke, does not drink. No history of any alcohol abuse. She ambulates independently without any assistance. She is working on a thesis in [place] at [employer], which she has put to a stop in the last several months because of her being sick. ALLERGIES: PATIENT IS ALLERGIC TO PENICILLIN, KEFLEX, CODEINE, IODINE, SHELLFISH, LATEX AND PEANUTS. MEDICATIONS: Patient's medications as I mentioned include pyridostigmine extended release 180 mg at bedtime and immediate release pyridostigmine 60 mg t.i.d. She is also on albuterol nebulizer and Ventolin p.r.n. Pharmacy is [facility] in [place]. PHYSICIANS: Following doctors she sees are Dr. Garibay, the neurologist; Dr. Santos, PMD; Dr. Hunt, the surgeon; she also had seen Dr. Rosas in the past from a Heme/Onc point of view. PHYSICAL EXAMINATION: At the time of consultation, GENERAL: Patient is lethargic post insertion of the venous port on the right side, but patient is able to answer me appropriately. She is in pain for which she was given medications. VITAL SIGNS: Stable as stated in the chart. HEENT: Head is normocephalic and atraumatic. Steroid facies is noted. Conjunctivae pale. Sclerae are anicteric. Pupils are equally reactive to light and accommodation. Examination of the oropharynx reveals the mucous membranes to be moist. Tongue is normal. No ulcerations are noted. NECK: Supple. No palpable masses are noted in the neck. LUNGS: Reveal decreased breath sounds on the right side posteriorly. There is no evidence of any accessory muscle use, rales, rhonchi, or wheezes. CARDIOVASCULAR: Reveals PMI to be in the fifth intercostal space inside the midclavicular line. S1 and S2 are normal. No gallop or murmur is heard. ABDOMEN: Soft and nontender. Bowel sounds are present. No rebound, rigidity or guarding is noted. Liver and spleen are not palpable. No other masses are felt. EXTREMITIES: Reveal no cyanosis, clubbing, or edema. NEUROLOGIC: Reveals higher functions to be normal. No focal deficits are noted. PSYCHIATRIC: The patient has normal affect as far as psychiatric evaluation is concerned. SKIN: Turgor is normal. No skin lesions are noted. GENITOURINARY AND RECTAL: Deferred. LABORATORY DATA: From today was reviewed and they are grossly within normal limits. CAT scan of the chest from the prior visit, which has shown the huge mass in the anterior mediastinum, currently shows evidence of residual disease. There is a 2.5 cm pretracheal lymph node along with swollen mediastinal nodes. The patient has a very small right pleural effusion with elevation of the right hemidiaphragm, which could be related to surgery because the phrenic nerve may have been compromised at the time of the surgery. ASSESSMENT, NOTES AND PLAN: A 47-year-old female, who initially presented as I mentioned in 08/2017, with findings of a huge mediastinal mass, which was biopsied by Dr. Loy Newman at [facility], which was reported as malignant thymoma B1. Chest CT dated 08/14/2017 on review, currently in January, showed the following. This is before the surgery and findings on the CAT scan done on 08/14/2017 showed a large mass in the right middle lobe, probably arising from the mediastinum, measuring about 9 cm in diameter with smooth borders, partially calcified, consistent with an anterior mediastinal mass, biopsy of which was recommended. The patient was also noted on the evaluation of the CAT scan, there was an enlarged paratracheal lymph node measuring 22 mm x 32 mm, without any mediastinal adenopathy and concern at that time was a probable differential diagnosis of mediastinal tumor versus malignant thymoma. Patient's thymoma was labeled as malignant thymoma B1 and based on clinical staging for the moment was staged as stage IV-A. The pleural fluid cytology has been sent to [facility], which confirms it to be malignant thymoma. Thymoma is categorized as B1, AB, B2 and B3. This was reported as thymoma B1. Based on the size, unfortunately, even though the overall prognosis is good, local structures involved including invasion of the lymphatics, could account for repeated fluid positivity and recurrent pleural effusions on the right side, requiring multiple thoracentesis. Multiple episodes of myasthenic crisis is also probably related to residual disease and that is why the patient is refractory to management. RECOMMENDATIONS: My recommendation after speaking to all the doctors involved and the case being presented to Tumor Board and a detailed discussion with the patient, our plan is to start the patient on systemic chemotherapy with chilkoot-etoposide based chemotherapy. Patient is then going to be assessed in-between for proton beam radiation as well. Plan is to give at least 3 cycles of chemotherapy with a similar regimen. Hopefully, she will respond to the treatment and myasthenic crisis should get better. Treatment for the myasthenic crisis could also include giving Rituxan or even doing plasmapheresis. Our plan currently is to get systemic therapy to her and see how the patient does. Patient is going to be seen in consultation by Nephrology to monitor her while she is getting nephrotoxic chemotherapy. She is going to be also monitored by Pulmonary and Neurology for any potential complications. Please make a note, this is a complex patient with multiple comorbid medical issues. Time spent with the patient is greater than an hour, out of which more than 50% of the time was spent in [id number] consultation. Narcisa Cyr MD
--- NOTE | 2018-02-25 19:59 | CON ---
DATE: 02/25/2018 The patient admitted for Dr. Greyson Collins and Dr. Cyr. REFERRING PHYSICIAN: Greyson Collins MD. REASON FOR CONSULTATION: Evaluation of a patient unknown to me who is starting chemotherapy for metastatic thymoma. We are asked to help monitor electrolyte issues related to chemotherapy. HISTORY OF PRESENT ILLNESS: The patient is a 47-year-old female with a history of a large thymoma resected in 10/2017. The patient developed recurrent disease with metastatic lesions and lymphadenopathy. She developed myasthenia gravis, currently treated with medication. History of anemia. The patient has been receiving IV immunoglobulin and steroids. She is status post placement of an access port, right chest wall to receive cisplatin and etoposide. The patient presently has normal chemistries. We are asked to evaluate and monitor the patient for any side effects from her chemotherapy in relation to her biochemical parameters. PAST MEDICAL HISTORY: Significant for myasthenia gravis; thymoma, status post resection in 2018 with recurrence, metastatic disease; pleural effusion, status post thoracentesis. History of anemia secondary to malignancy. MEDICATIONS: At home, include that of prednisone, Mestinon, Protonix, and Ventolin HFA. Current medications in hospital include that of Benadryl, Mestinon, Lovenox, IV methylprednisolone, Motrin p.r.n., prednisone, Protonix, normal saline 60 mL an hour, Toradol, Xopenex, and Zofran p.r.n. ALLERGIES: THE PATIENT IS ALLERGIC TO KEFLEX, CODEINE, IODINE, LATEX, PERCOCET, PEANUTS, PENICILLIN, AND SHELLFISH-DERIVED SUBSTANCES. SOCIAL HISTORY: No history of cigarette smoking. No history of alcohol use. FAMILY HISTORY: Noncontributory. No history of malignancy. REVIEW OF SYSTEMS: Ten plus systems reviewed with the patient. All negative except for what is noted above. PHYSICAL EXAMINATION: GENERAL: The patient is currently seen on 3R. She appears to be in no acute distress. She is in a process of receiving chemotherapy. VITAL SIGNS: Blood pressure presently 137/96. Pulse of 70. Temperature 98 with oxygen saturation of 98%. Respiratory rate is 20. HEENT: The patient has a Cryocap in place for preservation of her hair. This limits her HEENT exam. NECK: Supple. No neck vein distention. CHEST: Clear to auscultation and percussion with slightly decreased breath sounds at the right base. No rales, rhonchi, or wheezing. CARDIOVASCULAR: Shows a regular rate and rhythm without murmurs, rubs, or gallops. ABDOMEN: Soft. Bowel sounds normal. No rebound, guarding, or masses. EXTREMITIES: Show no cyanosis, clubbing, or edema. Distal lower extremity pulses are 2+ bilaterally. NEUROLOGIC: Shows her to be alert, oriented x3 with no gross focal motor or sensory deficits noted. LABORATORY DATA AND IMAGING: Admitting chest x-ray showed decreased right pleural effusion. CBC: White blood cell count 7.6, hemoglobin 11.4 with a platelet count of 375,000. Coags are normal. Chemistries show a chloride of 111, BUN is 30 with a creatinine of 0.7. Anion gap is low at 18. Uric acid is 5.2. Glucose 92. Calcium is 8.2, corrected to normal is 8.6. Phosphorus 4.1, magnesium 2. Bilirubin is 2.5. Liver enzymes are otherwise normal. Urine hCG was negative. No urinalysis was sent. Microbiology, no cultures available for comment. ASSESSMENT: 1. Thymoma, status post resection with recurrence and metastatic disease. The patient is status post steroids and IV immunoglobulin. She is currently receiving cisplatin and etoposide. 2. Myasthenia gravis. The patient is currently being maintained on steroids along with Mestinon with significant improvement. 3. History of mild anemia. This is likely secondary to chemotherapy. 4. Right pleural effusion, status post thoracentesis secondary to metastatic thymoma. PLAN: 1. Discussed with the patient and her . At present, the patient is stable biochemically. We will continue to monitor her chemistries. Uric acid level is normal. Renal parameters are normal. Electrolytes are normal. Will need to monitor closely over time given chemotherapy that the patient is receiving, she is receiving cisplatin and etoposide. 2. Follow labs over the next several days. The patient anticipates being in the hospital for total of 3 days to receive her chemotherapy. 3. Discussed with the patient the possibilities of perhaps following up with [facility] [place] for her metastatic thymoma once the insurance issues are resolved. Thank you for letting me partake and share in the care of your patient. Nikolas Menjivar MD [facility] # [id number]
[2018-02-26] MEDS: Sodium Chloride 0.9% 1,000 ML IV SCH ×2 (06:16→23:48)
--- NOTE | 2018-02-26 06:17 | CON ---
DATE: 02/25/2018 HISTORY OF PRESENT ILLNESS: This is a 47-year-old female with past medical history of thymoma resection in 10/2017 at [facility] and patient is on chemotherapy and also getting medication for myasthenia gravis. Called to evaluate the patient. Patient was in the bathroom and felt weaker. Patient gets IVIG with Dr. Garibay every month and she had a Port-A-Cath placement for chemo. PAST MEDICAL HISTORY: Status post thymectomy, myasthenia gravis and also anemia of chronic disease. PAST SURGICAL HISTORY: Thymectomy, multiple thoracentesis and breast reduction bilaterally. FAMILY HISTORY: Significant for Melissa Gehrig disease, father at the age of 59. SOCIAL HISTORY: Lives alone. ALLERGIES: PENICILLIN, KEFLEX, CODEINE, IODINE, SHELLFISH, PEANUTS AND LATEX. PHYSICAL EXAMINATION: VITAL SIGNS: Blood pressure 130/80. HEENT: Normocephalic and atraumatic. NECK: Supple. NEUROLOGIC: Alert, awake, and oriented x3. No aphasia. Boyfriend at bedside. Cranial nerves II through XII are tested. Pupils reactive. EOM intact. No facial asymmetry. Tongue midline. Motor examination: Spontaneous movement of the extremities noted. Deep tendon reflexes 1+. Plantars are downgoing. Sensory appears intact. Cerebellar and gait deferred. IMPRESSION: A 47-year-old female with status post resection of thymoma and recurrence of myasthenia gravis and patient is on chemo and pyridostigmine and patient is on premedication with steroid before the chemo. Continue present management. We will follow up. Freddy Cardozo MD
[2018-02-26 07:33] LABS: GRAN # 9.72 (1.4-6.5); GRAN % 90.9 % (50.0-68.0); HEMOGLOBIN 10.9 g/dL (12.0-16.0); LYMPH # 0.9 (1.2-3.4); LYMPH % 8.1 % (22.0-35.0); MEAN CORPUSCULAR HGB CONC 33.7 g/dl (31.0-37.0); MEAN PLATELET VOLUME 8.5 fl (7.0-11.0); MONO # 0.1 (0.1-0.6); PLATELET COUNT 354 10^3/uL (120.0-450.0); RBC 3.63 10^6/uL (3.5-6.1); RED CELL DISTRIBUTION WIDTH 15.7 % (11.5-14.5); WHITE BLOOD COUNT 10.7 10^3/ul (4.5-11.0)
[2018-02-26 07:41] LABS: ALB/GLOB RATIO 0.8 (1.1-1.8); ALBUMIN 3.4 g/dL (3.0-4.8); ALT/SGPT 19 U/L (7-56); AST/SGOT 26 U/L (14-36); BLOOD UREA NITROGEN 11 mg/dL (7-21); CALCIUM 8.3 mg/dL (8.4-10.5); GFR AFRICAN-AMERICAN > 60; GFR NON-AFRICAN AMERICAN > 60
--- NOTE | 2018-02-26 07:49 | CON ---
DATE: 02/25/2018 PULMONARY CONSULTATION REFERRING PHYSICIAN: Dr. Cyr. REASON FOR CONSULTATION: Pleural effusion, shortness of breath. HISTORY OF PRESENT ILLNESS: This is a 47-year-old female with known history of thymoma requiring median sternotomy and resection of the thymoma. Found to have a recurrent disease involving the lungs, paratracheal lymph node with myasthenia gravis symptoms, been on pyridostigmine. Has a recurrent right pleural effusion requiring thoracentesis early this year. Repeat CAT scan suggested worsening disease. She was started on steroids and IV IgG, status post Port-A-Cath placement. Presently, lying in the bed with mild shortness of breath. No hemoptysis or hematemesis. No hematuria, no diarrhea reported. PAST MEDICAL HISTORY: Metastatic thymoma, myasthenia gravis, anemia of chronic disease, also been on CPAP at home. SOCIAL HISTORY: No history of smoking or alcohol use. FAMILY HISTORY: Positive Melissa Gehrig disease. ALLERGIES: TO KEFLEX, PENICILLIN, IODINE, SHELLFISH, LATEX, AND PEANUTS. MEDICATIONS: She is on hydralazine 10 mg every 8 hours p.r.n., Benadryl 25 mg every 4 hour p.r.n., lidocaine patch at affected area, Lovenox 40 mg daily, Solu-Medrol 125 mg as given, Motrin 400 mg every 6 hour p.r.n., also on prednisone started on 50 mg, Protonix 40 mg daily, IV fluid normal saline 60 mL/hour, Toradol 50 mg IV every 6 p.r.n., Xopenex inhaled every 6 hour, Zofran p.r.n. REVIEW OF SYSTEMS: No headache, no rhinitis. Complaining about shortness of breath. No chest pain. No nausea, no vomiting, no diarrhea. No leg pain or leg swelling. PHYSICAL EXAMINATION: GENERAL: Lying in the bed, in no acute distress. VITAL SIGNS: Temperature is 98, heart rate 71, respiratory rate is 20, blood pressure 137/96, pulse ox 98% room air. HEENT: Moist mucous membrane. Crowded airway. NECK: Supple. LUNGS: Have decreased breath on the right lung. Right-sided Port-A-Cath. HEART: S1 and S2. ABDOMEN: Soft, nontender. No organomegaly. EXTREMITIES: No edema. NEUROLOGIC: Awake, alert, follows simple commands. LABORATORY DATA: Shows hemoglobin 11.4, hematocrit 33.9, WBC 7.6, platelet is 375. INR 0.97, PTT 27. Sodium 139, potassium 3.8, chloride 111, bicarbonate 24, BUN 13, creatinine 0.7, glucose 92, uric acid 5.2, calcium 8.2, phosphorus 4.1, magnesium 2. Total bili 2.5, direct bili 0.2, AST 30, ALT 24, alk phos is 55. Albumin is 3.5. Had a chest x-ray done which shows decreased pleural effusion compared to previous x-ray. Clear left lung. IMPRESSION AND PLAN: Thymoma with mets to the mediastinum and lungs causing pleural effusion, also myasthenia gravis. Presently asymptomatic disease. In the past, received steroids and IV IgG without much relief. Plan for chemo and radiation therapy. Pulmonary point of view, she is doing okay. We will add inhaled bronchodilator. Keep head at 45 degrees. We will recommend full pulmonary function test upon discharge as outpatient. Also will benefit from attending sleep study to ensure there is no sleep apnea. Gastric prophylaxis, deep venous thrombosis prophylaxis. Thank you and we will follow with you. Marci Gilliam MD
[2018-02-26 07:58] LABS: LYMPHOCYTE 10 % (22.0-35.0); MONOCYTE 2 % (1.0-6.0); NEUTROPHIL 88 % (50.0-70.0); PLATELET ESTIMATE NORMAL (NORMAL)
[2018-02-26] MEDS: methylPREDNISolone 125 MG in Sodium Chloride 0.9% 100 ML IV SCH (10:10)
[2018-02-26] MEDS: Pantoprazole 40 mg EC Tab PO SCH (10:11)
[2018-02-26] MEDS: Enoxaparin 40 mg Syringe SC SCH (10:20)
--- NOTE | 2018-02-26 11:24 | CP.PCM.PN ---
Subjective - Date & Time of Evaluation Date of Evaluation: 02/26/18 Time of Evaluation: 07:00 - Subjective Subjective: Tone Pelaez DO PGY-2: Hematology and Oncology Progress Note for Dr. Cyr Patient was seen and examined at bedside. Patient reports having two episodes of loose stools, changes in taste, and some nausea though she is still tolerating a diet. She request for PRN breathing treatments and BIPAP, which she uses at home. Otherwise, no adverse events noted overnight. Objective - Vital Signs/Intake and Output Vital Signs (last 24 hours): Temp Pulse Resp BP Pulse Ox 98.1 F 72 18 116/72 98 02/26/18 06:00 02/26/18 06:00 02/26/18 06:00 02/26/18 06:00 02/26/18 06:00 Intake and Output: 02/26/18 02/26/18 06:59 18:59 Intake Total 360 Output Total 900 Balance -540 - Medications Medications: Current Medications Albuterol/Ipratropium (Duoneb 3 Mg/0.5 Mg (3 Ml) Ud) 3 ml IH [id number] PRN PRN Reason: Shortness of Breath Diphenhydramine HCl (Benadryl) 25 mg IVP Q4H PRN PRN Reason: Allergy symptoms Last Admin: 02/24/18 19:00 Dose: 25 mg Enoxaparin Sodium (Lovenox) 40 mg SC DAILY ANNIE PRN Reason: Protocol Last Admin: 02/26/18 10:20 Dose: 40 mg Home Med (Home Med) 1 unit PO 0500,1100,1700 ANNIE Home Med (Home Med) 1 unit PO 2300 ANNIE Hydralazine HCl (Apresoline) 10 mg IVP Q8 PRN PRN Reason: Tension Sodium Chloride (Sodium Chloride 0.9%) 1,000 mls @ 60 mls/hr IV .[id number] ANNIE Last Admin: 02/26/18 06:16 Dose: 60 mls/hr Methylprednisolone 125 mg/ (Sodium Chloride) 102 mls @ 102 mls/hr IV DAILY ANNIE Stop: 02/27/18 10:59 Last Admin: 02/26/18 10:10 Dose: 102 mls/hr Diphenhydramine HCl 25 mg/Famotidine 20 mg/ Sodium Chloride 52.5 mls @ 162 mls/ hr IVPB ONCE ONE Stop: 02/26/18 12:04 Cisplatin 30 mg/ Mannitol 12.5 (gm/ Sodium Chloride) 580 mls @ 96.667 mls/hr IV ONCE ONE Stop: 02/26/18 17:44 Etoposide 180 mg/ Sodium (Chloride) 509 mls @ 169.667 mls/hr IV ONCE ONE Stop: 02/26/18 14:44 Ibuprofen (Motrin Tab) 400 mg PO Q6H PRN PRN Reason: Pain, moderate (4-7) Ketorolac Tromethamine (Toradol) 15 mg IVP Q6H PRN PRN Reason: Pain, severe (8-10) Levalbuterol HCl (Xopenex) 0.63 mg IH [id number] PRN PRN Reason: Shortness of Breath Lidocaine (Lidocaine 5%) 0 gm TOP DAILY PRN PRN Reason: Pain, moderate (4-7) Ondansetron HCl (Zofran Inj) 4 mg IVP Q4H PRN PRN Reason: Nausea/Vomiting Pantoprazole Sodium (Protonix Ec Tab) 40 mg PO DAILY [facility] Last Admin: 02/26/18 10:11 Dose: 40 mg Prednisone (Prednisone Tab) 50 mg PO QOTHERDAY [facility] Last Admin: 02/26/18 10:11 Dose: 50 mg - Labs Labs: 02/26/18 06:30 02/26/18 06:30 PT 11.2 SECONDS (9.4-12.5) 02/24/18 12:45 INR 0.97 (0.93-1.08) 02/24/18 12:45 APTT 26.9 Seconds (25.1-36.5) 02/24/18 12:45 - Constitutional Appears: Non-toxic, No Acute Distress - Head Exam Head Exam: ATRAUMATIC, NORMOCEPHALIC - Eye Exam Additional comments: mild ptosis, bilaterally - ENT Exam ENT Exam: Mucous Membranes Moist - Respiratory Exam Respiratory Exam: absent: Accessory Muscle Use, Stridor Additional comments: right lungs sounds diminished - Cardiovascular Exam Cardiovascular Exam: RRR, +S1, +S2 - GI/Abdominal Exam GI & Abdominal Exam: Soft, Normal Bowel Sounds - Extremities Exam Extremities Exam: Normal Inspection. 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 In June of 2017 she was found to have a palpable right neck mass and underwent CT of the neck which revealed are 2.4 cm paratracheal lymph node and a mass in the apex of the right lung. Biopsy confirmed thymoma. She underwent a PET scan and then surgery for removal of the thymoma. Prior to surgery she was evaluated by neurology and cardiology and was diagnosed with myasthenia gravis and started on Pyridostigmine. Prior to surgery it was thought that her Myasthenia Crisis would resolve after resection of the thymus mass. She underwent thymectomy in October 2017 and has had recurrent frequent right sided pleural effusions requiring thoracentesis and bouts of myasthenia crisis. Computed tomography in January of this year has revealed worsening metastatic disease in the mediastinum. She was started on Steroids and IVIG and radiation and chemotherapy option were discussed with her. On this admission, the patient underwent port-a-cath placmemt without complications and will be receiving pre-medications, etoposide , and Cisplatinum on Saturday, Saturday, and . Pulmonology, Nephrology and Neurology are consulted. We appreciate the recommendations. We also spoke with the pharmacy in regards to the patient potentially needing a Neulasta shot as an outpatient post-chemotherapy. We will continue to monitor the patient closely. BIPAP and PRN duonebs have been added. Case was reviewed and discussed with attending physician, Dr. Cyr
[2018-02-26] MEDS ORDERED: MANNITOL IV ONE (11:45)
[2018-02-26] MEDS ORDERED: SODIUM CHLORIDE 0.9% IVPB ONE (11:45)
[2018-02-26] MEDS ORDERED: SODIUM CHLORIDE 0.9% IV ONE (11:45)
[2018-02-26] MEDS ORDERED: FAMOTIDINE IVPB ONE (11:45)
[2018-02-26] MEDS ORDERED: DIPHENHYDRAMINE IVPB ONE (11:45)
[2018-02-26] MEDS ORDERED: CISPLATIN IV ONE (11:45)
--- NOTE | 2018-02-26 15:02 | PN ---
DATE: 02/26/2018 PULMONARY PROGRESS NOTE REFERRING PHYSICIAN: Dr. Cyr. SUBJECTIVE: She is out of bed to chair. Family at bedside. Night was unremarkable. Tolerated BiPAP well. She gets short of breath with minimal exertion. No nausea, vomiting, diarrhea. No leg pain, no leg swelling. OBJECTIVE: GENERAL: In no acute distress. VITAL SIGNS: Temperature is 98, heart rate 72, respiratory rate 18, blood pressure 116/72, pulse oximetry 98% on room air. HEENT: Moist mucous membrane. Crowded airway. NECK: Supple. No JVD. LUNGS: Have decreased breath sound on the right base. HEART: S1, S2. ABDOMEN: Soft, nontender. No organomegaly. EXTREMITIES: No edema. NEUROLOGIC: Awake, alert, follows simple command. MEDICATIONS: She is on hydralazine 10 mg every 8 hours p.r.n., Benadryl 25 mg every 4 hours p.r.n. Also, receiving chemotherapy, every 6 hours p.r.n., Lidoderm patch at affected area, Lovenox 40 mg daily, Solu-Medrol 125 mg daily three doses, Motrin 400 mg every 6 hours p.r.n., prednisone 50 mg. She will be given Protonix 40 mg daily, IV fluid normal saline 60 mL/hour, Toradol 50 mg every 6 hours p.r.n., Xopenex inhaled every 6 hours p.r.n., Zofran on p.r.n. basis. DATA: Laboratory data shows hemoglobin 10.9, hematocrit 32.3, WBC 10.7, platelets is 352. Sodium 141, potassium 3.6, chloride 114, bicarbonate 20, BUN 11, creatinine 0.5, glucose 130, calcium is 8.3, phosphorus is 3.4, magnesium 1.9, AST 26, ALT 19, alkaline phosphatase is 55. Albumin is 3.4. 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 She may have sleep apnea syndrome secondary to mostly paralyzed right hemidiaphragm. We will continue BiPAP while sleeping. Keep head at 45 degrees. May need sleep study upon discharge as outpatient. GI and DVT prophylaxis for now, continue p.r.n. nebulizer treatment. We will follow with you. Marci Gilliam MD
--- NOTE | 2018-02-26 21:44 | PN ---
DATE: 02/26/2018 SUBJECTIVE: The patient is seen sitting in bed. She is awake. She is alert. She is complaining of dyspnea on exertion. She is also complaining of a bad taste in her mouth. She denies any chest tightness. She denies any nausea or vomiting. PHYSICAL EXAMINATION: GENERAL: Middle-aged lady sitting in chair. VITAL SIGNS: Blood pressure 116/72, heart rate 72, respiratory rate 18, temperature 98.1. HEENT: Normocephalic, atraumatic, positive pallor. NECK: Supple, no JVD. LUNGS: Bilateral equal air entry, but decreased breath sounds right base, equal expansion. CARDIAC: S1 and S2, regular rate and rhythm, no murmur, no rub. ABDOMEN: Obese, distended, soft, nontender, bowel sounds present. EXTREMITIES: 1+ pitting edema of the lower extremities. INTAKE AND OUTPUT: 1285/900. LABORATORY DATA: WBC 10.7, hemoglobin 10.9, hematocrit 32, platelets 354. Sodium 141, potassium 3.6, chloride 114, CO2 20, BUN 11, creatinine 0.5, glucose 130, calcium 8.3, phosphorus 3.4, magnesium 1.9, total bili 2.1. Urine hCG negative. CURRENT MEDICATIONS: Apresoline 10 p.r.n., Benadryl, DuoNeb, lidocaine, Lovenox, Solu-Medrol, Motrin, prednisone 50 every other day, Protonix, normal saline at 60, Toradol, Xopenex. ASSESSMENT: 1. Thymoma, status post resection. Now with recurrence and metastatic disease. 2. Myasthenia gravis. 3. Mild anemia. 4. Right pleural effusion, status post thoracentesis. PLAN: 1. The patient is receiving chemotherapy. She received one dose yesterday. She is going to receive the second dose today. 2. Follow up 24-hour urine. 3. Uric acid and phosphorus are normal at this time. 4. We will continue to monitor closely with you. Ning Moss MD
[2018-02-27 07:03] LABS: BASO # 0.01 K/mm3 (0.0-2.0); BASO % 0.1 % (0.0-3.0); EOS % 0.1 % (1.5-5.0); GRAN # 10.46 (1.4-6.5); GRAN % 82.2 % (50.0-68.0); HEMOGLOBIN 10.1 g/dL (12.0-16.0); LYMPH # 1.2 (1.2-3.4); LYMPH % 9.7 % (22.0-35.0); MEAN CELL VOLUME 89.8 fl (80.0-105.0); MEAN CORPUSCULAR HEMOGLOBIN 29.5 pg (25.0-35.0); MEAN CORPUSCULAR HGB CONC 32.9 g/dl (31.0-37.0); MEAN PLATELET VOLUME 8.3 fl (7.0-11.0); MONO % 7.9 % (1.0-6.0); RBC 3.42 10^6/uL (3.5-6.1); RED CELL DISTRIBUTION WIDTH 16.1 % (11.5-14.5); WHITE BLOOD COUNT 12.7 10^3/ul (4.5-11.0)
[2018-02-27 08:24] LABS: ALB/GLOB RATIO 0.9 (1.1-1.8); ALBUMIN 3.3 g/dL (3.0-4.8); ALT/SGPT 26 U/L (7-56); AST/SGOT 51 U/L (14-36); BLOOD UREA NITROGEN 14 mg/dL (7-21); CALCIUM 8.4 mg/dL (8.4-10.5); GFR AFRICAN-AMERICAN > 60; GFR NON-AFRICAN AMERICAN > 60
[2018-02-27] MEDS: Albuterol-Ipratrop 3 mg / 0.5 (3 ml) UD IH PRN (08:34)
[2018-02-27] MEDS: Pantoprazole 40 mg EC Tab PO SCH (09:54)
[2018-02-27] MEDS: Enoxaparin 40 mg Syringe SC SCH (09:54)
--- NOTE | 2018-02-27 09:56 | CP.PCM.CON ---
History of Present Illness - History of Present Illness History of Present Illness: Awake,alert, no distress, sitting on chair,claimed had shortness of breath this morning upon waking up. Reason for consultation: Cardiac evaluation for heart rate bradycardia with 0.28 seconds pause. History of thymoma, Brief history of present illness: A 47 year old female who was admitted for steve cath placement for chemotherapy treatment. She was diagnosed with thymoma. She underwent thymectomy in October 2017 and has had recurrent frequent right sided pleural effusions requiring thoracentesis and bouts of myasthenia crisis. Computed tomography in January of this year has revealed worsening metastatic disease in the mediastinum. She was started on Steroids and IVIG and radiation and chemotherapy . Cardiac consult was called due to 0.28 seconds pause on teletypesetter monitor. History of myasthenia gravis, appendectomy,breast reduction bilateral for aesthetic reason, anemia. Seen and examined by me and Dr. Lam Review of Systems - Constitutional Additional comments: easily fatigued - Breasts Additional comments: history of bilateral breast reduction - Cardiovascular Additional comments: right chest port access Sinus bradycardia episode of 0.28 seconds pause - Respiratory Additional comments: shortness of breath this morning, feels exhausted - Gastrointestinal Additional comments: no appetite, force self to eat - Genitourinary Additional comments: continent Past Patient History - Infectious Disease Hx of Infectious Diseases: None - Tetanus Immunizations Tetanus Immunization: Unknown - Past Social History Smoking Status: Never Smoked - CARDIAC Hx Pacemaker: No - PULMONARY Hx Respiratory Disorders: Yes (resp failure/resp distress/pl effusion) Hx Asthma: Yes Other/Comment: multiple thoracenthesis, uses cpap at home - NEUROLOGICAL Hx Neurological Disorder: No Other/Comment: hx temporary paralysis - HEENT Hx HEENT Problems: Yes (blurred vision) - RENAL Hx Chronic Kidney Disease: No - ENDOCRINE/METABOLIC Hx Endocrine Disorders: No - HEMATOLOGICAL/ONCOLOGICAL Hx Blood Disorders: Yes Other/Comment: becomes fatigues after ivig infusions, 2x p/wk x 3 wks - INTEGUMENTARY Hx Dermatological Problems: Yes Other/Comment: mid chest scar, rcw vascular access dressing dry and intact - MUSCULOSKELETAL/RHEUMATOLOGICAL Hx Falls: Yes (recent fall) - GASTROINTESTINAL Hx Gastrointestinal Disorders: Yes HX Swallowing Problems: Yes (swallowing and eating) - GENITOURINARY/GYNECOLOGICAL Hx Genitourinary Disorders: No - PSYCHIATRIC Hx Substance Use: No - SURGICAL HISTORY Hx Surgeries: Yes Hx Appendectomy: Yes Hx Orthopedic Surgery: Yes (orif left knee) Other/Comment: thymectomy 10/2017[mass left side of neck], ectopic , insertion of venous port today 02/24/18 for chemo, b/l breast reduction small implants, lung bx ct guided 08/30/17 + lung mass - ANESTHESIA Hx Anesthesia Reactions: Yes (TROUBLE WAKING.MAY DEVELOP PROBLEMS R/T MYASTHENIA ) Hx Malignant Hyperthermia: No Meds Allergies/Adverse Reactions: Allergies Allergy/AdvReac Type Severity Reaction Status Date / Time cephalexin [From Keflex] Allergy Severe RASH Verified 02/19/18 11:19 codeine Allergy Severe RASH/SOB Verified 02/19/18 11:19 Iodine and Iodide Containing Allergy Severe ANAPHYLAXIS Verified 02/19/18 11:19 Produc latex Allergy Severe ANAPHYLAXIS Verified 02/19/18 11:19 oxycodone [From Percocet] Allergy Severe ANAPHYLAXIS Verified 02/19/18 11:19 peanut Allergy Severe ANAPHYLAXIS Verified 02/19/18 11:19 Penicillins Allergy Severe RASH/SOB Verified 02/19/18 11:19 shellfish derived Allergy ANAPHYLAXIS Verified 02/19/18 11:19 - Medications Medications: Current Medications Albuterol/Ipratropium (Duoneb 3 Mg/0.5 Mg (3 Ml) Ud) 3 ml IH [id number] PRN PRN Reason: Shortness of Breath Last Admin: 02/27/18 08:34 Dose: 3 ml Diphenhydramine HCl (Benadryl) 25 mg IVP Q4H PRN PRN Reason: Allergy symptoms Last Admin: 02/24/18 19:00 Dose: 25 mg Enoxaparin Sodium (Lovenox) 40 mg SC DAILY ANNIE PRN Reason: Protocol Last Admin: 02/26/18 10:20 Dose: 40 mg Furosemide (Lasix) 20 mg IVP Q12 ANNIE Home Med (Home Med) 1 unit PO 0500,1100,1700 ANNIE Home Med (Home Med) 1 unit PO 2300 ANNIE Hydralazine HCl (Apresoline) 10 mg IVP Q8 PRN PRN Reason: Tension Sodium Chloride (Sodium Chloride 0.9%) 1,000 mls @ 60 mls/hr IV .[id number] [facility] Last Admin: 02/26/18 23:48 Dose: 60 mls/hr Methylprednisolone 125 mg/ (Sodium Chloride) 102 mls @ 102 mls/hr IV DAILY [facility] Stop: 02/27/18 10:59 Last Admin: 02/26/18 10:10 Dose: 102 mls/hr Ibuprofen (Motrin Tab) 400 mg PO Q6H PRN PRN Reason: Pain, moderate (4-7) Ketorolac Tromethamine (Toradol) 15 mg IVP Q6H PRN PRN Reason: Pain, severe (8-10) Levalbuterol HCl (Xopenex) 0.63 mg IH [id number] PRN PRN Reason: Shortness of Breath Lidocaine (Lidocaine 5%) 0 gm TOP DAILY PRN PRN Reason: Pain, moderate (4-7) Pantoprazole Sodium (Protonix Ec Tab) 40 mg PO DAILY [facility] Last Admin: 02/26/18 10:11 Dose: 40 mg Prednisone (Prednisone Tab) 50 mg PO QOTHERDAY [facility] Last Admin: 02/26/18 10:11 Dose: 50 mg Physical Exam - Constitutional Appears: No Acute Distress - Eye Exam Eye Exam: Normal appearance - ENT Exam ENT Exam: Mucous Membranes Dry - Respiratory Exam Respiratory Exam: Decreased Breath Sounds, NORMAL BREATHING PATTERN - Cardiovascular Exam Cardiovascular Exam: Bradycardia, +S1, +S2 Additional comments: right chest port/ accessed - GI/Abdominal Exam GI & Abdominal Exam: Normal Bowel Sounds, Soft - Extremities Exam Extremities exam: Positive for: normal capillary refill - Neurological Exam Neurological exam: Alert, Normal Gait, Oriented x3 - Psychiatric Exam Psychiatric exam: Normal Affect, Normal Mood - Skin Skin Exam: Dry, Normal Color, Warm Results - Vital Signs Recent Vital Signs: Last Vital Signs Temp 97.4 F L 02/27/18 06:00 Pulse 63 02/27/18 06:00 Resp 22 02/27/18 06:00 BP 143/91 H 02/27/18 08:55 Pulse Ox 100 02/27/18 06:00 - Labs Result Diagrams: 02/27/18 06:45 02/27/18 06:45 Labs: Laboratory Results - last 24 hr 02/27/18 02/27/18 02/27/18 06:45 06:45 08:45 WBC 12.7 H RBC 3.42 L Hgb 10.1 L Hct 30.7 L MCV 89.8 MCH 29.5 MCHC 32.9 RDW 16.1 H Plt Count 297 MPV 8.3 Gran % 82.2 H Lymph % (Auto) 9.7 L Irion % (Auto) 7.9 H Eos % (Auto) 0.1 L Baso % (Auto) 0.1 Gran # 10.46 H Lymph # (Auto) 1.2 Irion # (Auto) 1.0 H Eos # (Auto) 0.0 Baso # (Auto) 0.01 Sodium 140 Potassium 3.6 Chloride 113 H Carbon Dioxide 22 Anion Gap 9 L BUN 14 Creatinine 0.6 L Est GFR ( Amer) > 60 Est GFR (Non-Af Amer) > 60 Random Glucose 98 Calcium 8.4 Magnesium 2.1 Total Bilirubin 1.3 AST 51 H D ALT 26 Alkaline Phosphatase 53 Total Protein 7.0 Albumin 3.3 Globulin 3.8 Albumin/Globulin Ratio 0.9 L Assessment & Plan - Assessment and Plan (Free Text) Assessment: A 47 year old female who was admitted for steve cath placement for chemotherapy treatment. She was diagnosed with thymoma. She underwent thymectomy in October 2017 and has had recurrent frequent right sided pleural effusions requiring thoracentesis and bouts of myasthenia crisis. Computed tomography in January of this year has revealed worsening metastatic disease in the mediastinum. She was started on Steroids and IVIG and radiation and chemotherapy . Cardiac consult was called due to 0.28 seconds pause bradycardia on teletypesetter monitor. History of myasthenia gravis, appendectomy,breast reduction bilateral for aesthetic reason, anemia. Patient claimed that heart rate has been on the 40's and 50's with no apparent symptoms. This morning upon waking up had shortness of breath, on nasal cannula , used CPAP and BIPAP last night which helped in sleeping. Claimed to have swollen arms this morning, Lasix dose was given.less swelling after Lasix dose.Denies any cardiac history. Denies chest pain. Review of previous cardiac work up: 01/13/18- ECHO done- LVEF 69%, normal LV size, mild TR, mild pulmonary hypertension. 01/12/18- EKG 12 lead - Normal ECG Bradycardia 57/min Plan: Claimed heart rate has been on the 40's and 50's due to thymoma Bradycardia rate of 42-50's/ min, now NSR 60's Episode of 0.28 seconds pause Will monitor, if persist will order holter monitor Will order 12 lead EKG to compare from previous Avoid betablockers Mild shortness of breath,Feels fatigued Chest xray On Lasix Continue current treatment Continue current medications Will follow up Plan and treatment discussed with Dr. Lam Thank you Dr. Collins for the opportunity of taking care of Ms. Monik Unger - Date & Time Date: 02/27/18 Time: 10:25
--- NOTE | 2018-02-27 10:17 | RAD ---
Date of service: 02/27/2018 HISTORY: Shortness of breath COMPARISON: 02/25/2018 FINDINGS: LUNGS: No active pulmonary disease. PLEURA: Increasing right pleural effusion CARDIOVASCULAR: Mild cardiomegaly OSSEOUS STRUCTURES: Sternal wires VISUALIZED UPPER ABDOMEN: Normal. OTHER FINDINGS: None. IMPRESSION: Increasing right pleural effusion
--- NOTE | 2018-02-27 10:37 | CP.PCM.PN ---
Subjective - Date & Time of Evaluation Date of Evaluation: 02/27/18 Time of Evaluation: 09:30 - Subjective Subjective: Alex Mckay DO, Internal Medicine Resident PGY-1 Hematology/Oncology Progress Note for Dr. Cyr Patient was seen and examined while sitting in chair at bedside. She reports continued discomfort, especially in her epigastric and mid chest regions. When informed of her episodes of bradycardia last night, she states that she has had similar episodes of bradycardia in the past always while sleeping. After these episodes she states that she can feel her heart rate rising. She believes these episodes may be due to her repeated myasthenic crises. She also endorses some SOB, especially with exertion. She feels as if she is full of fluid, especially in her chest and believes this is contributing to her SOB. She endorses feelings of nausea which are unchanged from yesterday but she is still trying to eat as much as she is able. Objective - Vital Signs/Intake and Output Vital Signs (last 24 hours): Temp Pulse Resp BP Pulse Ox 97.4 F L 63 22 143/91 H 100 02/27/18 06:00 02/27/18 06:00 02/27/18 06:00 02/27/18 08:55 02/27/18 06:00 Intake and Output: 02/27/18 02/27/18 06:59 18:59 Intake Total 600 Output Total 1400 Balance -800 - Medications Medications: Current Medications Acetaminophen (Tylenol 325mg Tab) 650 mg PO Q4H PRN PRN Reason: Pain, Mild (1-3) Albuterol/Ipratropium (Duoneb 3 Mg/0.5 Mg (3 Ml) Ud) 3 ml IH [id number] PRN PRN Reason: Shortness of Breath Last Admin: 02/27/18 08:34 Dose: 3 ml Diphenhydramine HCl (Benadryl) 25 mg IVP Q4H PRN PRN Reason: Allergy symptoms Last Admin: 02/24/18 19:00 Dose: 25 mg Enoxaparin Sodium (Lovenox) 40 mg SC DAILY ANNIE PRN Reason: Protocol Last Admin: 02/27/18 09:54 Dose: 40 mg Furosemide (Lasix) 20 mg IVP Q12 ANNIE Home Med (Home Med) 1 unit PO 0500,1100,1700 ANNIE Home Med (Home Med) 1 unit PO 2300 [facility] Hydralazine HCl (Apresoline) 10 mg IVP Q8 PRN PRN Reason: Tension Sodium Chloride (Sodium Chloride 0.9%) 1,000 mls @ 60 mls/hr IV .[id number] [facility] Last Admin: 02/26/18 23:48 Dose: 60 mls/hr Methylprednisolone 125 mg/ (Sodium Chloride) 102 mls @ 102 mls/hr IV DAILY [facility] Stop: 02/27/18 10:59 Last Admin: 02/26/18 10:10 Dose: 102 mls/hr Levalbuterol HCl (Xopenex) 0.63 mg IH [id number] PRN PRN Reason: Shortness of Breath Lidocaine (Lidocaine 5%) 0 gm TOP DAILY PRN PRN Reason: Pain, moderate (4-7) Pantoprazole Sodium (Protonix Ec Tab) 40 mg PO DAILY [facility] Last Admin: 02/27/18 09:54 Dose: 40 mg - Labs Labs: 02/27/18 06:45 02/27/18 06:45 PT 11.2 SECONDS (9.4-12.5) 02/24/18 12:45 INR 0.97 (0.93-1.08) 02/24/18 12:45 APTT 26.9 Seconds (25.1-36.5) 02/24/18 12:45 - Constitutional Appears: No Acute Distress - Head Exam Head Exam: ATRAUMATIC, NORMAL INSPECTION, NORMOCEPHALIC - Eye Exam Eye Exam: Normal appearance, PERRL - ENT Exam ENT Exam: Mucous Membranes Moist - Neck Exam Neck Exam: Full ROM. absent: Lymphadenopathy, Thyromegaly - Respiratory Exam Respiratory Exam: Clear to Ausculation Bilateral, NORMAL BREATHING PATTERN - Cardiovascular Exam Cardiovascular Exam: REGULAR RHYTHM, RRR, +S1, +S2. absent: Gallop, Rubs, Murmur - GI/Abdominal Exam GI & Abdominal Exam: Soft, Tenderness, Normal Bowel Sounds Additional comments: tenderness greatest in mid-epigastric region - Extremities Exam Extremities Exam: Full ROM, Normal Capillary Refill. absent: Pedal Edema, Tenderness - Neurological Exam Neurological Exam: Alert, Awake, Oriented x3 - Psychiatric Exam Psychiatric exam: Normal Affect, Normal Mood - Skin Skin Exam: Dry, Intact, Normal Color, Warm Assessment and Plan - Assessment and Plan (Free Text) Assessment: Ms. Unger is a 47 year old female with PMH of thymoma s/p resection in October 2017 and myasthenia from thymoma admitted for port-a-cath placement and initial infusions of etoposide and cisplatin. She is on day three of this regimen. Due to bradycardic episodes last night and her complaints of worsening swelling and SOB, etoposide and cisplatin infusions will be held until cardiology and nephrology have evaluated and cleared her. She has been given one dose of Lasix 20 mg IVP. We will continue this Q12 hours. Nephrology and cardiology recs appreciated. Case and plan were reviewed and discussed in detail with my attending physician Dr. Klarissa Mckay DO IM Resident PGY-1
[2018-02-27] MEDS ORDERED: FAMOTIDINE IVPB ONE (11:30)
[2018-02-27] MEDS ORDERED: SODIUM CHLORIDE 0.9% IVPB ONE (11:30)
[2018-02-27] MEDS ORDERED: DIPHENHYDRAMINE IVPB ONE (11:30)
[2018-02-27] MEDS ORDERED: Sodium Chloride 0.9% 1,000 ML IV ONE (13:00)
[2018-02-27] MEDS ORDERED: methylPREDNISolone 125 MG in Sodium Chloride 0.9% 100 ML IV SCH (13:00)
[2018-02-27] MEDS ORDERED: SODIUM CHLORIDE 0.9% IV ONE (13:00)
[2018-02-27] MEDS ORDERED: CISPLATIN IV ONE (13:00)
[2018-02-27] MEDS ORDERED: MANNITOL IV ONE (13:00)
[2018-02-27] MEDS: methylPREDNISolone 125 MG in Sodium Chloride 0.9% 100 ML IV SCH (13:26)
[2018-02-27] MEDS ORDERED: Potassium Chloride 20 mEq ER Tab PO ONE (14:32)
[2018-02-27 16:34] VITALS: RESP 20
--- NOTE | 2018-02-27 16:37 | CARD ---
APPROVED REPORT Date of service: 02/27/2018 EKG Measurement Heart [id number] <Conclusion> Sinus bradycardia Otherwise normal ECG
--- NOTE | 2018-02-27 17:38 | PN ---
DATE: 02/27/2018 SUBJECTIVE: The patient is seen sitting in chair. She is awake. She is alert. She appears mildly short of breath. She complains of some nausea. She complains of some bad taste in her mouth. PHYSICAL EXAMINATION: GENERAL: Middle-aged lady, sitting in chair. VITAL SIGNS: Blood pressure 143/91, heart rate 74, respiratory rate 20, temperature 98.8. HEENT: Normocephalic, atraumatic, positive pallor. NECK: Supple, no JVD. LUNGS: Bilateral equal air entry. Decreased breath sounds, right side. CARDIAC: S1 and S2, regular rate and rhythm, no murmur, no rub. ABDOMEN: Obese, distended, soft, nontender, bowel sounds present. EXTREMITIES: 2+ pitting edema of the lower extremities. INTAKE AND OUTPUT: 1440/1400. LABORATORY DATA: WBC 12.7, hemoglobin 10, hematocrit 30.7, platelets 297. Sodium 140, potassium 3.6, chloride 113, CO2 of 22, BUN 14, creatinine 0.6, glucose 98, calcium 8.4, magnesium 2.1, total bili 1.3, AST 51, ALT 26. CURRENT MEDICATIONS: Apresoline p.r.n., Benadryl, cisplatin 30 mg given today, DuoNeb, Lasix 40 IV every 12, lidocaine, Lovenox, Protonix, normal saline at 60, Xopenex. ASSESSMENT AND PLAN: 1. History of thymoma, thymectomy in 10/2017, right-sided pleural effusion. 2. Recurrence with metastatic disease. 3. Myasthenia gravis. 4. Mild anemia. PLAN: 1. Continue chemotherapy as per Oncology team. 2. Monitor electrolytes daily. 3. Continue IV fluids. 4. Uric acid and phosphorus are normal at this time. Ning Moss MD
--- NOTE | 2018-02-27 18:33 | PN ---
DATE: 02/27/2018 PULMONARY PROGRESS NOTE REFERRING PHYSICIAN: Narcisa Cyr MD. SUBJECTIVE: The patient is lying in the bed, head at 45 degrees. Night was unremarkable. Has some shortness of breath this morning. Could not use BiPAP the whole night because of dry mouth. Still gets short of breath with minimal exertion. No chest pain. No nausea. No vomiting, diarrhea, leg pain, leg swelling. OBJECTIVE: GENERAL: In no acute distress. VITAL SIGNS: Temperature is 98, heart rate 68, respiratory rate is 20, blood pressure 143/91, pulse ox 98% on 2 L nasal cannula. HEENT: Moist mucous membrane. Crowded airway. NECK: Supple. No JVD. LUNGS: Have decreased breath sounds on the right lung. HEART: S1 and S2. ABDOMEN: Soft, nontender, no organomegaly. EXTREMITIES: There is no edema. NEUROLOGICAL: Awake, alert, Follows simple command. MEDICATIONS: She is on hydralazine 10 mg every 8 hours p.r.n., Benadryl 25 mg every 4 hours p.r.n., being started on chemotherapy, DuoNeb every 6 hours p.r.n., Lasix 20 mg every 12 hours, lidocaine patch 5% at affected area, Lovenox 40 mg subcu daily, affected area every 8 hours, Protonix 40 mg daily, IV fluid normal saline 60 mL/hour, Xopenex is 0.63 every 6 hours p.r.n. LABORATORY DATA: Shows hemoglobin 10.1, hematocrit 30.7, WBC 12.7, platelet is 297. Sodium 140, potassium 3.6, chloride 113, bicarbonate 22, BUN 14, creatinine 0.6, glucose 98, calcium is 8.4, magnesium is 2.1, total bili is 1.3, AST 51, ALT 26, alk phos is 53. Albumin is 3.3. Chest x-ray done this morning shows increased right pleural effusion. 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 Spoke to the patient's nurse in detail. Requested to add humidification with the bilevel positive airway pressure. Keep head on high level. May continue p.r.n. bronchodilator. Being started on chemotherapy. Careful with sedation. Gastric and deep venous thrombosis prophylaxis. Thank you and we will follow with you. Marci Gilliam MD
[2018-02-28] MEDS: DiphenhydrAMINE 50 mg/ml Inj IVP PRN (01:37)
[2018-02-28] MEDS: Albuterol-Ipratrop 3 mg / 0.5 (3 ml) UD IH PRN (01:52)
[2018-02-28 02:05] LABS: GRAN # 4.88 (1.4-6.5); GRAN % 72.6 % (50.0-68.0); HEMOGLOBIN 11.7 g/dL (12.0-16.0); LYMPH # 1.5 (1.2-3.4); LYMPH % 22.9 % (22.0-35.0); MEAN CELL VOLUME 89.6 fl (80.0-105.0); MEAN CORPUSCULAR HEMOGLOBIN 30.4 pg (25.0-35.0); MEAN CORPUSCULAR HGB CONC 33.9 g/dl (31.0-37.0); MEAN PLATELET VOLUME 8.7 fl (7.0-11.0); MONO # 0.3 (0.1-0.6); MONO % 4.5 % (1.0-6.0); RBC 3.85 10^6/uL (3.5-6.1); WHITE BLOOD COUNT 6.7 10^3/ul (4.5-11.0)
--- NOTE | 2018-02-28 02:22 | PCM.RRT ---
<SantillanIrvin - Last Filed: 02/28/18 02:54> UNINDENTURED APPRENTICE Nurse Assessment - Situation Date: 02/28/18 Time UNINDENTURED APPRENTICE was called: 01:41 UNINDENTURED APPRENTICE Responder Arrival Time: 01:41 UNINDENTURED APPRENTICE Location:: [address] [place] [address] Room Number: 360-2 UNINDENTURED APPRENTICE Reason for Call: Respiratory Distress UNINDENTURED APPRENTICE Called By: RN - IV IV Inserted during UNINDENTURED APPRENTICE?: No - Respiratory Oxygen Delivery Method: Face Mask @% Received Nebulizer Treatments:: Yes Was the Patient Intubated?: No Was the Patient Placed on a Ventilator?: No - Medication Medications Administered During UNINDENTURED APPRENTICE: Pepcid 40mg. Solumedrol 125mg IV. Given Duoneb treatment. Given Lasix 40mg IVP - Diagnostic Test Ordered EKG: Yes (no st segment elevation) Chest X-Ray: Yes (R sided pleural effusion ) - Stat Labs Ordered UNINDENTURED APPRENTICE Stat Labs Ordered: CBC, TROPONIN UNINDENTURED APPRENTICE Other Labs Ordered: CBC CMP Mag Phos Troponin CPR started during UNINDENTURED APPRENTICE?: No - Vital Signs Vital Sign: HR66, 191/102 RR28 O2Sat 100% - Time UNINDENTURED APPRENTICE Ended Time UNINDENTURED APPRENTICE Ended: 02:20 - Vital Signs at end of UNINDENTURED APPRENTICE Vital Signs at end of UNINDENTURED APPRENTICE: HR 60; BP 165/87; RR 14; SPO2 100% - Recommendations 5) UNINDENTURED APPRENTICE Level of Care Recommendations: Remain in current setting Notifications: Attending Physician - Neurological Status (Select all that apply): Alert, Responsive, Oriented, Verbal, Follows Commands - Respiratory Oxygen Delivery Method: BiPAP @% - Constitutional Appears: In Acute Distress - Head Head Exam: ATRAUMATIC, NORMOCEPHALIC - Eyes Eye Exam: EOMI, Normal appearance, PERRL, Scleral icterus. absent: Conjunctival injection - Respiratory Exam Additional comments: Hyperventilating, Diminished breath sounds throughout all lung poole; No wheezes appreciated - Cardiovascular Exam Cardiovascular Exam: RRR, +S1, +S2 - GI/Abdominal Exam GI & Abdominal Exam: Soft. absent: Tenderness - Neurological Exam Neurological Exam: Alert, Awake, Oriented x3 - Extremities Exam Extremities Exam: Normal Capillary Refill (Distal pulses 2+ intact). absent: Pedal Edema Plan - Assessment of Findings&Treatment Plan UNINDENTURED APPRENTICE called at 2141 for complaints of respiratory distress + intense pruritius Vitals on arrival: HR66, 191/102 RR28 O2Sat 100% Pt. was seen at bedside; Sitting up in moderate respiratory distress wearing O2 mask. Pt voicing complaints of difficulty breathing and new pruritus throughout body. Pt is a 47 year old female with thymoma s/p resection with recurrence and worsening of myasthnia crisis and worsening metastatic disease and lymphadenopathy en route to receive chemotherapy Denies CP, palpitations, abd pain, N/V/D/C. Pt. on exam: No oropharyngeal/ facial edema appreciated on patient; Poor air movement diffusely w/ no wheezing; Heart exam RRR; Radial pulses 2+ extremities warm No hives/ rashes appreciated on LE/UE/Head/Neck PLAN: CBC CMP Mag Phos Troponin CXR: R sided pleural effusion pending official read EKG: NSR 61, no ST elevation, pending official read Benardryl 50mg IVP Pepcid 40mg Solumedrol 125mg IV (125mg given prior on 02/27 evening for chemo premedication) Given Duoneb treatment Given Lasix 40mg IVP Pt. placed on bipap; Currently not in respiratory distress. Will continue Bipap. Hemodynamically stable. Does not require ICU consultation at this time. Case and Plan discussed w/ House attending Dr. Corry Santillan DO PGY1 Internal Medicine Design Release Engineer <Liliya Wheatley - Last Filed: 02/28/18 04:05> UNINDENTURED APPRENTICE Nurse Assessment - Vital Signs Vital Sign: Rapid Response Vital Sign Blood Pressure 191/102 Pulse Rate 66 Respiratory Rate 28 Oxygen Saturation 100 - Vital Signs at end of UNINDENTURED APPRENTICE Vital Signs at end of UNINDENTURED APPRENTICE: Rapid Response End Vital Sign Blood Pressure 165/87 Pulse Rate 96 Respiratory Rate 22 O2 Sat by Pulse Oximetry 99 Attending/Attestation - Attestation I have personally seen and examined this patient.: Yes I have fully participated in the care of the patient.: Yes I have reviewed all pertinent clinical information, including history, physical exam and plan: Yes Notes (Text): 02/28/18 04:04 Patient was seen at bedside. Agree with documentation.
[2018-02-28 02:27] LABS: B-TYPE NATRIURETIC PEPTIDE 635 pg/mL (0-450); TROPONIN I < 0.01 ng/mL
[2018-02-28 02:29] LABS: ALB/GLOB RATIO 0.9 (1.1-1.8); ALBUMIN 4.2 g/dL (3.0-4.8); ALT/SGPT 33 U/L (7-56); AST/SGOT 25 U/L (14-36); BLOOD UREA NITROGEN 16 mg/dL (7-21); CALCIUM 8.5 mg/dL (8.4-10.5); GFR AFRICAN-AMERICAN > 60; GFR NON-AFRICAN AMERICAN > 60
--- NOTE | 2018-02-28 07:17 | CP.PCM.PN ---
Subjective - Date & Time of Evaluation Date of Evaluation: 02/28/18 Time of Evaluation: 06:25 - Subjective Subjective: Awake,alert, no distress, claimed to have a reaction last night and rapid response was called Reason for consultation: Cardiac evaluation for heart rate bradycardia with 2.08 seconds pause. History of thymoma, Seen and examined by me and Dr. Lam Objective - Vital Signs/Intake and Output Vital Signs (last 24 hours): Temp Pulse Resp BP Pulse Ox 98.8 F 67 20 191/102 H 98 02/27/18 16:34 02/28/18 02:05 02/27/18 16:34 02/28/18 02:12 02/27/18 16:34 Intake and Output: 02/28/18 02/28/18 06:59 18:59 Intake Total 300 Balance 300 - Medications Medications: Current Medications Albuterol/Ipratropium (Duoneb 3 Mg/0.5 Mg (3 Ml) Ud) 3 ml IH [id number] PRN PRN Reason: Shortness of Breath Last Admin: 02/28/18 01:52 Dose: 3 ml Diphenhydramine HCl (Benadryl) 25 mg IVP Q4H PRN PRN Reason: Allergy symptoms Last Admin: 02/28/18 01:37 Dose: 25 mg Enoxaparin Sodium (Lovenox) 40 mg SC DAILY [facility] PRN Reason: Protocol Last Admin: 02/27/18 09:54 Dose: 40 mg Furosemide (Lasix) 20 mg IVP Q12 [facility] Stop: 03/01/18 10:01 Last Admin: 02/27/18 20:59 Dose: 20 mg Home Med (Home Med) 1 unit PO 0500,1100,1700 [facility] Home Med (Home Med) 1 unit PO 2300 [facility] Hydralazine HCl (Apresoline) 10 mg IVP Q8 PRN PRN Reason: Tension Sodium Chloride (Sodium Chloride 0.9%) 1,000 mls @ 60 mls/hr IV [id number] [facility] Last Admin: 02/26/18 23:48 Dose: 60 mls/hr Ketoconazole (Nizoral) 0 gm TOP Q8 PRN PRN Reason: Rash Levalbuterol HCl (Xopenex) 0.63 mg IH [id number] PRN PRN Reason: Shortness of Breath Lidocaine (Lidocaine 5%) 0 gm TOP DAILY PRN PRN Reason: Pain, moderate (4-7) Pantoprazole Sodium (Protonix Ec Tab) 40 mg PO DAILY [facility] Last Admin: 02/27/18 09:54 Dose: 40 mg - Labs Labs: 02/28/18 01:54 02/28/18 01:55 PT 11.2 SECONDS (9.4-12.5) 02/24/18 12:45 INR 0.97 (0.93-1.08) 02/24/18 12:45 APTT 26.9 Seconds (25.1-36.5) 02/24/18 12:45 - Constitutional Appears: No Acute Distress - Head Exam Head Exam: NORMOCEPHALIC - Eye Exam Eye Exam: Normal appearance - ENT Exam ENT Exam: Mucous Membranes Moist - Respiratory Exam Respiratory Exam: Decreased Breath Sounds, NORMAL BREATHING PATTERN - Cardiovascular Exam Cardiovascular Exam: Bradycardia, +S1, +S2 Additional comments: right chest port/accessed - GI/Abdominal Exam GI & Abdominal Exam: Soft, Normal Bowel Sounds - Extremities Exam Extremities Exam: Normal Capillary Refill - Neurological Exam Neurological Exam: Alert, Awake, Oriented x3 - Psychiatric Exam Psychiatric exam: Normal Affect - Skin Skin Exam: Intact, Warm Assessment and Plan - Assessment and Plan (Free Text) Assessment: A 47 year old female who was admitted for steve cath placement for chemotherapy treatment. She was diagnosed with thymoma. She underwent thymectomy in October 2017 and has had recurrent frequent right sided pleural effusions requiring thoracentesis and bouts of myasthenia crisis. Computed tomography in January of this year has revealed worsening metastatic disease in the mediastinum. She was started on Steroids and IVIG and radiation and chemotherapy . Cardiac consult was called due to 0.28 seconds pause bradycardia on environmental monitoring technician. History of myasthenia gravis, appendectomy,breast reduction bilateral for aesthetic reason, anemia. Patient claimed that heart rate has been on the 40's and 50's with no apparent symptoms. This morning upon waking up had shortness of breath, on nasal cannula , used CPAP and BIPAP last night which helped in sleeping. Claimed to have swollen arms this morning, Lasix dose was given.less swelling after Lasix dose.Denies any cardiac history. Denies chest pain. Review of previous cardiac work up: 01/13/18- ECHO done- LVEF 69%, normal LV size, mild TR, mild pulmonary hypertension. 01/12/18- EKG 12 lead - Normal ECG Bradycardia 57/min Plan: Post LAB COURIER for intense pruritus and respiratory distress Given solumedrol, lasix, benadryl,pepcid,douneb and placed on BIPAP with resolution. Symptoms happened after finishing chemo dose Suggest premedication prior to chemo Feels better now, fatigued Heart rate and blood pressure stable on holter monitor, will check result Wanted to be discharge home Continue current treatment Continue current medications Will follow up Plan and treatment discussed with Dr. Lam
[2018-02-28 07:36] VITALS: O2SAT 97
--- NOTE | 2018-02-28 08:42 | RAD ---
Date of service: 02/28/2018 HISTORY: STUDIO GRIP; resp distress COMPARISON: 02/27/2018 FINDINGS: LUNGS: No active pulmonary disease. PLEURA: Moderate size right pleural effusion unchanged CARDIOVASCULAR: Normal. OSSEOUS STRUCTURES: Sternal wires VISUALIZED UPPER ABDOMEN: Normal. OTHER FINDINGS: None. IMPRESSION: Moderate size right pleural effusion
[2018-02-28] MEDS: Enoxaparin 40 mg Syringe SC SCH (09:29)
[2018-02-28] MEDS: Pantoprazole 40 mg EC Tab PO SCH (09:30)
--- NOTE | 2018-02-28 10:59 | CARD ---
APPROVED REPORT Date of service: 02/28/2018 EKG Measurement Heart [id number] <Conclusion> Normal sinus rhythm Normal ECG
[2018-02-28 11:06] LABS: HDL CHOLESTEROL 56 mg/dL (29-60)
[2018-02-28 11:16] LABS: LDL CHOLESTEROL 112 mg/dL (0-129)
--- NOTE | 2018-02-28 12:52 | CP.PCM.PN ---
Subjective - Date & Time of Evaluation Date of Evaluation: 02/28/18 Time of Evaluation: 08:20 - Subjective Subjective: Tone Pelaez DO PGY-2: Hematology and Oncology Progress Note: Patient was seen and examined at bedside. Patient denies any recollection of the rapid response that occurred overnight. Chart review indicates patient was dyspnea and pruritus. Night team placed the patient on her BIPAP and gave her Pepcid, Steroids, and a breathing treatment. This morning patient appears well- rested and in no distress. Furthermore, her bowel movements are soft and she reports no diarrhea. She still admits to a metallic taste in the mouth with foods. Objective - Vital Signs/Intake and Output Vital Signs (last 24 hours): Temp Pulse Resp BP Pulse Ox 97.6 F 68 20 139/89 97 02/28/18 07:34 02/28/18 10:00 02/28/18 07:34 02/28/18 09:28 02/28/18 07:34 Intake and Output: 02/28/18 02/28/18 06:59 18:59 Intake Total 300 Balance 300 - Medications Medications: Current Medications Albuterol/Ipratropium (Duoneb 3 Mg/0.5 Mg (3 Ml) Ud) 3 ml IH [id number] PRN PRN Reason: Shortness of Breath Last Admin: 02/28/18 01:52 Dose: 3 ml Enoxaparin Sodium (Lovenox) 40 mg SC DAILY [facility] PRN Reason: Protocol Last Admin: 02/28/18 09:29 Dose: 40 mg Furosemide (Lasix) 20 mg IVP Q12 [facility] Stop: 03/01/18 10:01 Last Admin: 02/28/18 09:28 Dose: 20 mg Home Med (Home Med) 1 unit PO 0500,1100,1700 [facility] Home Med (Home Med) 1 unit PO 2300 [facility] Hydralazine HCl (Apresoline) 10 mg IVP Q8 PRN PRN Reason: Tension Ketoconazole (Nizoral) 0 gm TOP Q8 PRN PRN Reason: Rash Lidocaine (Lidocaine 5%) 0 gm TOP DAILY PRN PRN Reason: Pain, moderate (4-7) Lorazepam (Ativan) 0.5 mg PO BID PRN; Protocol PRN Reason: Nausea/Vomiting Ondansetron HCl (Zofran Odt) 4 mg PO Q8H PRN PRN Reason: Nausea/Vomiting Prochlorperazine (Compazine Tab) 10 mg PO Q8H PRN PRN Reason: Nausea/Vomiting - Labs Labs: 02/28/18 01:54 02/28/18 01:55 PT 11.2 SECONDS (9.4-12.5) 02/24/18 12:45 INR 0.97 (0.93-1.08) 02/24/18 12:45 APTT 26.9 Seconds (25.1-36.5) 02/24/18 12:45 - Constitutional Appears: Well, Non-toxic - Head Exam Head Exam: ATRAUMATIC, NORMOCEPHALIC - Eye Exam Eye Exam: EOMI, Normal appearance - ENT Exam ENT Exam: Mucous Membranes Moist - Neck Exam Neck Exam: Normal Inspection - Respiratory Exam Respiratory Exam: Decreased Breath Sounds (in right lung base, improved compared to prior evaluations), NORMAL BREATHING PATTERN. absent: Accessory Muscle Use - Cardiovascular Exam Cardiovascular Exam: RRR, +S1, +S2 - GI/Abdominal Exam GI & Abdominal Exam: Soft, Normal Bowel Sounds - Extremities Exam Extremities Exam: Normal Inspection. absent: Calf Tenderness - Back Exam Back Exam: NORMAL INSPECTION. absent: CVA tenderness (L), CVA tenderness (R) - Neurological Exam Neurological Exam: Alert, Awake, Oriented x3 - Psychiatric Exam Psychiatric exam: Normal Affect, Normal Mood - Skin Skin Exam: Dry, Intact, Normal Color, Warm Assessment and Plan - Assessment and Plan (Free Text) Assessment: Ms. 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 She has completed three days of this regimen. She has had episodic weakness secondary to myasthenia and episodes of shortness of breath prompting diuretic and breathing treatments. She will be monitored for chemotherapy related adverse effects that tend to peak on day 4 of initial treatment. We will continue to monitor the patient closely. Nephrology and cardiology recommendations are appreciated. Case and plan were reviewed and discussed in detail with my attending physician Dr. Cyr
[2018-02-28 16:22] VITALS: BP 135/83; TEMP 98.1
--- NOTE | 2018-02-28 16:50 | PN ---
DATE: 02/28/2018 SUBJECTIVE: The patient is seen lying in bed. She is awake, she is alert, she is comfortable. She does have some mild dyspnea on exertion. She denies any bad taste in her mouth. She denies any nausea or vomiting. She reports SHE HAD AN ALLERGIC REACTION TO HER CHEMO AGENT last night. She was having itching. She was also having difficulty breathing. She felt like her throat was closing. PHYSICAL EXAMINATION: GENERAL: Middle-aged lady lying in bed. VITAL SIGNS: Blood pressure 135/83, heart rate 63, respiratory rate 20, temperature 98.1. HEENT: Normocephalic, atraumatic. NECK: Supple, no JVD. LUNGS: Bilateral equal air entry, bilateral rhonchi, and decreased breath sounds, right side. CARDIAC: S1 and S2, regular rate and rhythm, no murmur, no rub. ABDOMEN: Obese, distended, soft, nontender, bowel sounds present. EXTREMITIES: No lower extremity edema. CURRENT MEDICATIONS: List reviewed. ASSESSMENT: 1. Allergic reaction to chemotherapy?, status post rapid response yesterday, status post receiving Benadryl 50, Solu-Medrol, and Pepcid. 2. Thymoma, history of thymectomy. 3. Metastatic disease. 4. History of myasthenia gravis. 5. Hypertension. PLAN: 1. Stable renal parameters. 2. Continue supportive care. Ning Moss MD
--- NOTE | 2018-02-28 16:55 | PN ---
DATE: 02/28/2018 PULMONARY PROGRESS NOTE REFERRING PHYSICIAN: Greyson Collins MD. SUBJECTIVE: She is lying in the bed, head at 45 degrees. Night was unremarkable. Tolerated BiPAP well. No headache. No rhinitis. No nausea. No vomiting, diarrhea, leg pain, leg swelling. OBJECTIVE: GENERAL: In no acute distress. VITAL SIGNS: Temperature is 98, heart rate 63, respiratory rate is 20, blood pressure 135/83, pulse ox 97% on room air. HEENT: Moist mucous membrane. Crowded airway. NECK: Supple. No JVD. LUNGS: Have decreased breath sounds on the right lung. HEART: S1 and S2. ABDOMEN: Soft, nontender. No organomegaly. EXTREMITIES: There is no edema. NEUROLOGICAL: Awake, alert, follows simple command. MEDICATIONS: She is on hydralazine 10 mg every 8 hours p.r.n., lorazepam 0.5 mg twice a day p.r.n., Compazine 10 mg every 8 hours p.r.n., DuoNeb every 6 hours p.r.n., Lasix 20 mg IV twice a day, Lovenox 640 mg subcu daily, Nizoral at affected area every 8 hours p.r.n., Zofran p.r.n. basis. LABORATORY DATA: Shows hemoglobin 11.7, hematocrit 34.5, WBC 6.7, platelet count is 331. Sodium 143, potassium 3.8, chloride 109, bicarbonate 24, BUN 16, creatinine 0.7, glucose 137, hemoglobin A1c 4.5, calcium 8.5, phosphorus 2.9, magnesium 2.1, AST 25, ALT 33, alk phos is 53, total protein 8.6, albumin is 4.2, cholesterol is 208. Chest x-ray done today shows moderate-sized right effusion. 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 Clinically, when I saw the patient, she was doing well, wanted to go home. We will continue bilevel positive airway pressure while sleeping, especially when she is lying flat. Recommend to keep head elevated at 45 degrees. P.r.n. bronchodilator. After my examination, apparently later in the day, she had a rapid response secondary to some itching and shortness of breath. Pulse oximetry was acceptable. Once the patient was placed on bilevel positive airway pressure, she felt better. Will need close monitoring. For now, continue present care. Thank you and we will follow with you. Marci Gilliam MD
--- NOTE | 2018-02-28 18:12 | CP.PCM.DIS ---
Provider - Provider Date of Admission: 02/24/18 16:35 Attending physician: Greyson Collins MD Primary care physician: Debby Santos MD Consults: Dr. Ajay Knowles Time Spent in preparation of Discharge (in minutes): 40 Hospital Course - Lab Results Lab Results: Most Recent Lab Values WBC 6.7 10^3/ul (4.5-11.0) D 02/28/18 01:54 RBC 3.85 10^6/uL (3.5-6.1) 02/28/18 01:54 Hgb 11.7 g/dL (12.0-16.0) L 02/28/18 01:54 Hct 34.5 % (36.0-48.0) L 02/28/18 01:54 MCV 89.6 fl (80.0-105.0) 02/28/18 01:54 MCH 30.4 pg (25.0-35.0) 02/28/18 01:54 MCHC 33.9 g/dl (31.0-37.0) 02/28/18 01:54 RDW 16.0 % (11.5-14.5) H 02/28/18 01:54 Plt Count 331 10^3/uL (120.0-450.0) 02/28/18 01:54 MPV 8.7 fl (7.0-11.0) 02/28/18 01:54 Gran % 72.6 % (50.0-68.0) H 02/28/18 01:54 Lymph % (Auto) 22.9 % (22.0-35.0) 02/28/18 01:54 Loving % (Auto) 4.5 % (1.0-6.0) 02/28/18 01:54 Eos % (Auto) 0.0 % (1.5-5.0) L 02/28/18 01:54 Baso % (Auto) 0.0 % (0.0-3.0) 02/28/18 01:54 Gran # 4.88 (1.4-6.5) 02/28/18 01:54 Lymph # (Auto) 1.5 (1.2-3.4) 02/28/18 01:54 Loving # (Auto) 0.3 (0.1-0.6) 02/28/18 01:54 Eos # (Auto) 0.0 (0.0-0.7) 02/28/18 01:54 Baso # (Auto) 0.00 K/mm3 (0.0-2.0) 02/28/18 01:54 Neutrophils % (Manual) 88 % (50.0-70.0) H 02/26/18 06:30 Lymphocytes % (Manual) 10 % (22.0-35.0) L 02/26/18 06:30 Monocytes % (Manual) 2 % (1.0-6.0) 02/26/18 06:30 Platelet Evaluation Normal (NORMAL) 02/26/18 06:30 PT 11.2 SECONDS (9.4-12.5) 02/24/18 12:45 INR 0.97 (0.93-1.08) 02/24/18 12:45 APTT 26.9 Seconds (25.1-36.5) 02/24/18 12:45 Sodium 143 mmol/L (132-148) 02/28/18 01:55 Potassium 3.8 mmol/L (3.6-5.0) 02/28/18 01:55 Chloride 109 mmol/L (98-107) H 02/28/18 01:55 Carbon Dioxide 24 mmol/L (21-33) 02/28/18 01:55 Anion Gap 14 (10-20) 02/28/18 01:55 BUN 16 mg/dL (7-21) 02/28/18 01:55 Creatinine 0.7 mg/dl (0.7-1.2) 02/28/18 01:55 Est GFR ( Amer) > 60 02/28/18 01:55 Est GFR (Non-Af Amer) > 60 02/28/18 01:55 Random Glucose 137 mg/dL (70-110) H 02/28/18 01:55 Hemoglobin A1c 4.5 % (4.2-6.5) 02/28/18 02:00 Uric Acid 5.2 mg/dL (2.5-6.2) 02/25/18 05:30 Calcium 8.5 mg/dL (8.4-10.5) 02/28/18 01:55 Phosphorus 2.9 mg/dL (2.5-4.5) 02/28/18 01:55 Magnesium 2.1 mg/dL (1.7-2.2) 02/28/18 01:55 Total Bilirubin 1.3 mg/dL (0.2-1.3) 02/28/18 01:55 Direct Bilirubin 0.2 mg/dL (0.0-0.4) 02/25/18 05:30 AST 25 U/L (14-36) 02/28/18 01:55 ALT 33 U/L (7-56) 02/28/18 01:55 Alkaline Phosphatase 53 U/L (38-126) 02/28/18 01:55 Troponin I < 0.01 ng/mL 02/28/18 01:55 NT-Pro-B Natriuret Pep 635 pg/mL (0-450) H 02/28/18 01:55 Total Protein 8.6 g/dL (5.8-8.3) H 02/28/18 01:55 Albumin 4.2 g/dL (3.0-4.8) 02/28/18 01:55 Globulin 4.4 gm/dL 02/28/18 01:55 Albumin/Globulin Ratio 0.9 (1.1-1.8) L 02/28/18 01:55 Triglycerides 147 mg/dL (35-160) 02/28/18 02:00 Cholesterol 208 mg/dL (130-200) H 02/28/18 02:00 LDL Cholesterol Direct 112 mg/dL (0-129) 02/28/18 02:00 HDL Cholesterol 56 mg/dL (29-60) 02/28/18 02:00 TSH 3rd Generation 0.42 mIU/mL (0.46-4.68) L 02/28/18 01:50 Urine HCG, Qual Negative (NEGATIVE) 02/24/18 14:30 - Hospital Course Hospital Course: Ms. 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 Neurology, pulmonology, and nephrology were consulted. She tolerated the chemotherapy without any clinically significant adverse events. She has completed three days of this regimen. She has had episodic weakness secondary to myasthenia gravis that were treated supportively and also had what appeared to be dyspnea with intense pruritus prompting a RR in which she was placed on BIPAP and given Pepcid, Furosemide, and IV solumedrol. She was monitored closely and kept on her home medications. She will be seeing Dr. Cyr in the clinic on Saturday and will likely receive an injection of Neupogen or Neulasta, depending on her insurance approval. She was discharged with the below written instructions and recommendations, including a prophylactic anti-emetics cocktail. She will continue her steroids, protonix, and Pyridostigmine. She was instructed to return to the nearest ED if any of her symptoms worsened. - Date & Time of H&P Date of H&P: 02/28/18 Time of H&P: 18:36 Discharge Exam - Head Exam Head Exam: ATRAUMATIC, NORMOCEPHALIC - Eye Exam Eye Exam: EOMI, Normal appearance - ENT Exam ENT Exam: Mucous Membranes Moist, Normal Oropharynx - Neck Exam Neck exam: Normal Inspection - Respiratory Exam Respiratory Exam: Clear to PA & Lateral, NORMAL BREATHING PATTERN. absent: Accessory Muscle Use - Cardiovascular Exam Cardiovascular Exam: RRR, +S1, +S2 - GI/Abdominal Exam GI & Abdominal Exam: Normal Bowel Sounds. absent: Guarding - Extremities Exam Extremities exam: normal inspection - Back Exam Back exam: NORMAL INSPECTION. absent: CVA tenderness (L), CVA tenderness (R) - Neurological Exam Neurological exam: Alert, CN II-XII Intact, Oriented x3 - Psychiatric Exam Psychiatric exam: Normal Affect, Normal Mood - Skin Skin Exam: Dry, Intact, Normal Color, Warm Discharge Plan - Discharge Medications Prescriptions: Ondansetron ODT [Zofran ODT] 4 mg PO Q6H PRN #30 odt PRN Reason: Nausea/Vomiting Prochlorperazine [Compazine Tab] 10 mg PO Q8H PRN #20 tab PRN Reason: Nausea/Vomiting - Follow Up Plan Condition: GOOD Disposition: HOME/ ROUTINE Additional Instructions: 1) Patient to follow up with Dr. Cyr next week. Patient also to come to oncology infusion clinic for a Neupogen or Neulasta shot on Saturday. 2) Patient to take any medications as prescribed/directed. 3) Patient to return to [facility] ED for any worsening of symptoms. 4) Patient to follow up with PMD within one week. Referrals: Debby Santos MD [Primary Care Provider] -
[2018-02-28 18:46] VITALS: PULSE 69
--- NOTE | 2018-03-01 12:18 | CARD ---
APPROVED REPORT Date of service: 02/28/2018 Reason for Test: BRADYCARDIA Hookup date: 2018-02-27 Scan date: 2018-02-28 Recording time: 23 HR 59 MIN Heart Rate Data Total Beats: [id number] Min HR: 47 BPM at 2:42PM Avg HR: 61 BPM Max HR: 112 BPM at 12:40AM Supraventricular Ectopy Total VE Beats: 53 (0.1%) Longest R-R: 1.5 sec at 2:42 PM Single PAC's: 53 Conclusion SINUS RHYTHM / SINUS BRADYCARDIA / SINUS TACHYCARDIA MINIMUM HR 47 BPM MAXIMUM HR 112 BPM ISOLATED APC'S DIARY WAS NOT AVAILABLE.
== END 2018-02-28 20:01 | disposition home or self-care (01) | DRG 12 ==
LOC: SDS 11:51 → ERH 16:35 → 3RNO 18:35
PROVIDERS: ADMIT Family Medicine; ATTEND Family Medicine
PROC: 06H033Z Insertion of Infusion Device into Inferior Vena Cava, Percutaneous Approach (ICD-10-PCS; principal; 2018-02-24)
PROC: B543ZZA Ultrasonography of Right Jugular Veins, Guidance (ICD-10-PCS; 2018-02-24)
PROC: 3E04305 Introduction of Other Antineoplastic into Central Vein, Percutaneous Approach (ICD-10-PCS; 2018-02-25)
PROC: 5A09357 Assistance with Respiratory Ventilation, Less than 24 Consecutive Hours, Continuous Positive Airway Pressure (ICD-10-PCS; 2018-02-28)
DX: G70.01 Myasthenia gravis with (acute) exacerbation (principal); C37 Malignant neoplasm of thymus; C78.1 Secondary malignant neoplasm of mediastinum; J90 Pleural effusion, not elsewhere classified; D63.8 Anemia in other chronic diseases classified elsewhere; I10 Essential (primary) hypertension; G47.30 Sleep apnea, unspecified; I27.20 Pulmonary hypertension, unspecified; J45.909 Unspecified asthma, uncomplicated; R13.10 Dysphagia, unspecified; D63.0 Anemia in neoplastic disease; R00.1 Bradycardia, unspecified; L29.9 Pruritus, unspecified; R06.02 Shortness of breath; T45.1X5A Adverse effect of antineoplastic and immunosuppressive drugs, initial encounter; Z79.52 Long term (current) use of systemic steroids; Z88.0 Allergy status to penicillin; Z84.89 Family history of other specified conditions